=== PATIENT | male | born 1935 | race Caucasian/White ===

== ENCOUNTER 2017-10-24 17:29 | Observation (INO) | payer MEDICARE, SELFPAY ==
[2017-10-24] VITALS (10 sets, daily range): BP systolic 154–195; BP diastolic 72–99; PULSE 76–91; RESP 14–24; TEMP 36.7; O2SAT 94–99; BMI 32.2; BMI 32.4
--- NOTE | 2017-10-24 18:07 | EKG12_ITS ---
Test Reason : CP Blood Pressure : / mmHG Vent. Rate : 092 BPM Atrial Rate : 092 BPM P-R Int : 176 ms QRS Dur : 122 ms QT Int : 344 ms P-R-T Axes : 088 070 034 degrees QTc Int : 425 ms Normal sinus rhythm Right bundle branch block Abnormal ECG Confirmed by MATTY SHERMAN, GELA ([id number]), video tape editor CHEO CAMPOS ([id number]) on 10/29/2017 1:56:37 PM Referred By: DANGELO/KANDACE Confirmed By:GELA STARR MD
--- NOTE | 2017-10-24 18:07 | RAD_ITS ---
STUDY: X-RAY CHEST REASON FOR EXAM: Male, 82 years old. Chest pain TECHNIQUE: AP portable COMPARISON: None. FINDINGS: Lungs are hyperinflated and there is minor interstitial thickening at the lung bases. Lungs are otherwise clear.. There is no demonstrated pleural abnormality. Normal size heart. Normal mediastinum and juan manuel. Normal visualized pulmonary arteries. Normal visualized aortic arch and descending thoracic aorta. Dorsal spine demonstrates spondylosis. Normal visualized ribs, clavicles, and shoulders. There is no demonstrated abnormality of the visualized soft tissue structures of the upper abdomen. RAD/Chest 1 View (Portable) IMPRESSION: COPD. No acute disease Electronically Signed: Gil Brooks MD at 18:46 EDT , Service support ,
[2017-10-24] MEDS: Aspirin 81 MG TAB.CHEW 324 MG PO (18:19)
[2017-10-24 18:32] LABS: Anion Gap 5 (5-15); BUN 16 mg/dL (7-18); BUN/Creat Ratio 20.8 RATIO (10-20); Calcium,Total 9.5 mg/dL (8.5-10.1); Chloride 104 mmol/L (98-107); Creatinine, Serum 0.77 mg/dL (0.70-1.30); EST Glomerular Filtration Rate 103 mL/min (>60); Est Glom Filt Rate - Afr Amer 124 mL/min (>60); Estimated Creatinine Clearance 54.17 ml/min; Glucose 101 mg/dL (74-106); Potassium 3.9 mmol/L (3.5-5.1); Sodium Level 141 mmol/L (136-145)
[2017-10-24 18:39] LABS: Absolute Lymphocyte Count 2.45 X10^3/ul (0.83-4.51); Absolute Neutrophil Count 4.7 X10^3/uL (2.0-7.7); Basophil# 0.02 X10^3/uL; Basophil% 0.2 % (0-1); Eosinophil# 0.19 X10^3/uL; Eosinophils% 2.3 % (0-5); Hematocrit 41.3 % (40-54); Hemoglobin 13.6 g/dl (13.0-16.5); Lymphocyte # 2.45 X10^3/ul (4.0); Lymphocyte % 29.5 % (19-41); Mean Corp Hgb Conc 32.9 g/gl (32-36); Mean Corpuscular Hgb 30.8 pg (27.0-32.0); Mean Corpuscular Volume 93.4 fL (80-94); Mean Platelet Vol. 9.4 fl (6.2-12.0); Monocyte# 0.98 X10^3/uL; Monocyte% 11.8 % (0-10); Neutrophil # 4.66 X10^3/uL (2.7-7.7); Neutrophil % 56.1 % (47-70); Platelet Count 299 K/mm3 (150-450); RBC Distribution Width CV 13.1 % (11.6-14.6); RBC Distribution Width SD 44.7 fl (35.1-43.9); Red Blood Count 4.42 M/mm3 (4.6-6.2); White Blood Count 8.3 K/mm3 (4.4-11.0)
[2017-10-24 18:42] LABS: POSITIVE COUNT NO; POSITIVE DIFFERENTIAL NO; POSITIVE MORPHOLOGY NO
--- NOTE | 2017-10-24 19:38 | ED.DCSUM_ITS ---
- ER Visit Summary Date of Service: 10/24/17 Chief Complaint: Chest pain History of Present Illness: The patient is a 82 M history of COPD on O2 with reflux and hypertension. He is prediabetic. Patient has no prior cardiac history. He does not believe he is ever had a stress test or heart cath. Today was seen his primary care physician's office Dr. Jaime Quintero call me thought the patient was having atypical chest pain and did not feel comfortable with him being discharged from his office. Patient is never had a DVT or PE. He has had no recent travel, surgery or mobilization. He has had no hemoptysis. No leg swelling. The pain is not pleuritic. Physical Examination: Well-appearing older male. Vital signs are stable. Pulse ox is 94% on 2 L which is chronic O2. H EENT exam unremarkable. Neck nontender no JVD. Heart regular rate and rhythm. Lungs coarse but no rales, rhonchi or wheezing. Abdomen soft nontender. Remedies moves all 4. Calves nontender no edema no cords. Neurologically is awake and alert with no focal deficits. Moving all 4 extremities. Equal symmetrical radial pulses. Test Results: CBC normal. BMP normal. Troponin is slightly above normal at 0.048. EKG is a sinus rhythm rate of 92 with a right bundle branch block. I have an EKG from the office is not significantly changed. I do not not have a more recent EKG from the hospital at this time. Chest x-ray shows chronic changes consistent with COPD read both by myself the radiologist but no acute process. Normal cardiac silhouette and mediastinum. Emergency Department Course and Treatment: Repeat exam patient is doing well at night 37. I discussed with both he and his all his test results. He is comfortable with admission for further evaluation and workup of atypical chest pain. Treatment Plan: I have the hospitalist Dr. Hill on page for admission. Disposition: Admission Impression: Acute atypical chest pain Abnormal troponin History of COPD This note was generated with [employer] dictation software. It may contain incorrect words, spelling, and punctuation that were not noted in review of the chart prior to signing ED Disposition - Plan for ED Patient: Chief Complaint: Chest Pain Referrals: Jaime Quintero MD [Primary Care Provider] -
--- NOTE | 2017-10-24 19:48 | HP.PCM_ITS ---
Problem List (1) COPD (chronic obstructive pulmonary disease) Status: Chronic Qualifiers: COPD type: unspecified COPD Qualified Code(s): J44.9 - Chronic obstructive pulmonary disease, unspecified (2) Chronic respiratory failure with hypoxia, on home oxygen therapy Status: Chronic (3) Pre-diabetes Status: Chronic (4) HTN (hypertension) Status: Chronic Qualifiers: Hypertension type: essential hypertension Qualified Code(s): I10 - Essential (primary) hypertension (5) Obesity (BMI 30.0-34.9) Status: Chronic (6) Chest pain Status: Acute Qualifiers: Chest pain type: unspecified Qualified Code(s): R07.9 - Chest pain, unspecified History of Present Illness Date of Admission: 10/24/17 Chief Complaint: Chest pain The patient is a 82 y/o M w/ PMHx: Chronic COPD w/ Chronic Hypoxic Respiratory Failure, Pre-Diabetes mellitus type II, Obesity, HTN who presents to the [facility] ED on 10/24/17 with onset over the last 24 hours atypical chest pain, noted to have initially occurred while riding ~1 mile to obtain his mail w/ diffuse discomfort across his chest w/ radiation into his back and BL jaw as well as L shoulder which resolved after ~20 minutes following intake he notes of anti- acid medications. He noted it did recurrent on day of ED presentation and again resolved w/ his PCP evaluation and referral to the ED for evaluation. In the ED work-up included T 98, heart rate 80, BP 156/75, respiratory rate 14, 99% on 2 L nasal cannula, unremarkable CBC, BMP unremarkable, troponin 0 0.048, EKG with right bundle branch block with no acute evidence of ischemia, chest x-ray with chronic COPD changes. In the ED patient will start aspirin therapy. Past Medical History Past Medical History (Chronic Problems): Chronic Problems COPD (chronic obstructive pulmonary disease) (Chronic) Chronic respiratory failure with hypoxia, on home oxygen therapy (Chronic) Pre-diabetes (Chronic) HTN (hypertension) (Chronic) Obesity (BMI 30.0-34.9) (Chronic) Allergies No Known Allergies Allergy (Verified 10/24/17 17:31) Home Medications: Ambulatory Orders Medication Instructions Recorded Albuterol IH (ProAir) [Proair Hfa] 1 - 2 puff INHALATION PRN PRN 10/24/17 Amlodipine [Norvasc] 5 mg PO DAILY 10/24/17 Cholecalciferol (Vitamin D3) 5,000 unit PO DAILY 10/24/17 [Vitamin D3] Curcumin 1 tab PO DAILY 10/24/17 Mometasone/Formoterol [Dulera 200 2 puff INHALATION BID 10/24/17 Mcg/5 Mcg Inhaler] [place]-3 Fatty Acids/Fish Oil [Fish 1 each PO DAILY 10/24/17 Oil 1,000 mg Capsule] Pantoprazole Sodium [Protonix] 40 mg PO DAILY 10/24/17 Tiotropium [place] [Spiriva] 1 puff IH DAILY 10/24/17 Ubidecarenone [Co Q-10] 10 mg PO DAILY 10/24/17 Surgical History: - - Tonsillectomy, cholecystectomy, bilateral inguinal hernia repair. Psychiatric History: No pertinent psych hx Lives: Spouse/ Significant Other Smoking Status: Former smoker - Quit tobacco usage in January 2001 with prior to this 40 year history of 2-3 pack per day tobacco usage cigarette. Tobacco Use: Non-smoker Alcohol: Occasional Drugs: None - *Family History Maternal History Items: - - Patient notes a maternal family history of stroke in her 80s. Paternal History Items: - - Patient notes a paternal family history of Parkinson's disease with dementia. Sibling History Items: - - Patient notes a sister with Parkinson's disease. Review of Systems Constitutional: Reports: Malaise, Weakness, Fatigue. Denies: Chills, Fever, Weight Change HEENT: Denies: Head Aches, Sinus Congestion, Sinus Drainage Cardiovascular: Reports: Chest Pain, Chest Tightness. Denies: Edema, Heaviness , Light Headedness, Orthopnea, Palpitations, Syncope Respiratory: Reports: Shortness of Breath, Shortness of breath upon exertion. Denies: Cough, Shortness of breath at rest, Sputum production Gastrointestinal: Denies: Abdominal Pain, Nausea, Vomiting Genitourinary: Denies: Dysuria Musculoskeletal: Reports: Shoulder Pain. Denies: Joint Pain, Joint Tenderness Skin: Denies: Rash, Wounds Neurological: Denies: Numbness, Tingling, Focal weakness Psychiatric: Denies: Anxiety, Depression, Homicidal Ideations, Suicidal Ideations Hematologic/ Lymphatic: Denies: Easy Bruising, Easy Bleeding VTE Information - Inpt Only VTE Present on Admission: No VTE Mechan Device Prophylaxis: SCD's VTE Pharm Prophylaxis ordered?: Yes Patient Problems: Active and Suspected Problems Chest pain (Acute) Subjective: Seated upright in the ED bed, NAD, denies any current chest pain. Objective: Physical Examination: General: awake, alert, oriented x 3 and cooperative, seated upright in the ED bed in no apparent distress. Skin: normal color, turgor, no icterus, cyanosis. HEENT: AT/NC, EOMI, PERRLA, mildly dry MM, no carotid bruits or JVD noted. Lungs: Diffusely diminished BS, > bases, mild effort, on his chronic O2, no rales, ronchi or wheezing. Heart: Regular rate and rhythm; no gallop, rub audible. Abdomen: soft, obese, NTTP, ND, normal BS, no HSM. Extremities: no cyanosis, clubbing, BL LE ankle edema. Neurological: patient awake, alert, oriented x 3; cognitive function intact; pupils equally reactive to light and accomodation; cranial nerves II-XII grossly normal, moving all 4 extremities, no focal deficits, strength moderately globally decreased. Psychiatric: affect appears normal, no acute evidence of depressive or anxiety feelings. - Physical Exam Vital Signs Temp Pulse Resp BP Pulse Ox 98.0 F 87 14 195/99 H 97 10/24/17 17:30 10/24/17 17:56 10/24/17 17:56 10/24/17 17:56 10/24/17 18:14 Oxygen Flow Rate (L/min) 2 Oxygen Delivery Method Nasal Cannula Weight: 205 lb 11.06 oz Body Mass Index (BMI) 32.2 Laboratory Tests Past 24 Hrs 10/24/17 10/24/17 17:50 17:50 WBC 8.3 RBC 4.42 L Hgb 13.6 Hct 41.3 MCV 93.4 MCH 30.8 MCHC 32.9 RDW 13.1 RDW Differential 44.7 H Plt Count 299 MPV 9.4 Immature Gran % (Auto) 0.100 Neut % (Auto) 56.1 Lymph % (Auto) 29.5 Summers % (Auto) 11.8 H Eos % (Auto) 2.3 Baso % (Auto) 0.2 Absolute Neuts (auto) 4.7 Absolute Lymphs (auto) 2.45 Total Counted Not Reportable Sodium 141 Potassium 3.9 Chloride 104 Carbon Dioxide 32.0 Anion Gap 5 BUN 16 Creatinine 0.77 Estim Creat Clear Calc 54.17 Est GFR (MDRD) Af Amer 124 Est GFR (MDRD) Non-Af 103 BUN/Creatinine Ratio 20.8 H Glucose 101 Calcium 9.5 Troponin I 0.048 H Assessment/Plan Active and Suspected Problems Chest pain (Acute) The patient is a 82 y/o M w/ PMHx: Chronic COPD w/ Chronic Hypoxic Respiratory Failure, Pre-Diabetes mellitus type II, Obesity, HTN who presents to the [facility] ED on 10/24/17 with onset over the last 24 hours atypical chest pain, noted to have initially occurred while riding ~1 mile to obtain his mail w/ diffuse discomfort across his chest w/ radiation into his back and BL jaw as well as L shoulder which resolved after ~20 minutes following intake he notes of anti- acid medications. He noted it did recurrent on day of ED presentation and again resolved w/ his PCP evaluation and referral to the ED for evaluation. (1) Chest Pain w/ Indeterminate Troponin: In the ED work-up included T 98, heart rate 80, BP 156/75, respiratory rate 14, 99% on 2 L nasal cannula, unremarkable CBC, BMP unremarkable, troponin 0.048, EKG with right bundle branch block with no acute evidence of ischemia, chest x-ray with chronic COPD changes. Will admit to PCU, place on a monitored bed to assure no acute myocardial infarction with serial cardiac enzymes and EKGs. If enzymes remain near normal, low then would plan to obtain AM dobutamine nuclear stress testing , but if increase further would plan cardiology consultation and administer therapeutic lovenox if appropriate. ASA, NG, morphine. FLP in AM. Mag pending. (2) Chronic COPD: Will maintain on home oxygen supplementation, continue ATC duonebs, PRN albuterol, HOB, IS parameters. (3) Diabetes mellitus type II: Not on regimen, allow until NPO ADA diet, accu checks w/ ISS. (4) GERD: Continue home PPI. (5) Hypertension: Continue home regimen including Norvasc, PRN hydralazine. (6) Obesity: Weight loss and lifestyle changes encouraged. (7) DVT Prophylaxis: SCDs, lovenox. Code Visit OBSV E&M: 68728 Initial observation care L3
--- NOTE | 2017-10-24 20:51 | EKG12_ITS ---
Test Reason : ADM EKG Blood Pressure : / mmHG Vent. Rate : 078 BPM Atrial Rate : 078 BPM P-R Int : 184 ms QRS Dur : 122 ms QT Int : 380 ms P-R-T Axes : 084 068 020 degrees QTc Int : 433 ms Normal sinus rhythm Right bundle branch block Septal infarct , age undetermined T wave abnormality, consider lateral ischemia Abnormal ECG When compared with ECG of 24-OCT-2017 17:36, MANUAL COMPARISON REQUIRED, DATA IS UNCONFIRMED Confirmed by MATTY SHERMAN, GELA ([id number]), editor publications CHEO CAMPOS ([id number]) on 10/29/2017 2:14:33 PM Referred By: KATHERINE Confirmed By:GELA STARR MD
[2017-10-24] MEDS: Ipratropium/Albuterol Sulfate 3 ML AMPUL.NEB INHALATION (21:40)
[2017-10-24] MEDS: Albuterol 2.5 MG/3 ML VIAL.NEB. INHALATION (21:48)
[2017-10-24 21:49] LABS: Magnesium 1.7 mg/dL (1.6-2.6)
[2017-10-24 22:46] LABS: Bedside Glucose 148 mg/dL (70-110)
[2017-10-25] VITALS (14 sets, daily range): BP systolic 148–182; BP diastolic 79–93; PULSE 63–94; RESP 16–20; TEMP 36.6–37; O2SAT 96–98
[2017-10-25] MEDS: 0.9% NaCl Peripheral Flush Adult/Peds IV (03:25)
[2017-10-25] MEDS: Albuterol 2.5 MG/3 ML VIAL.NEB. INHALATION (05:13)
--- NOTE | 2017-10-25 05:55 | EKG12_ITS ---
Test Reason : AM EKG Blood Pressure : / mmHG Vent. Rate : 072 BPM Atrial Rate : 072 BPM P-R Int : 194 ms QRS Dur : 138 ms QT Int : 410 ms P-R-T Axes : 073 063 011 degrees QTc Int : 448 ms Normal sinus rhythm Right bundle branch block T wave abnormality, consider lateral ischemia Abnormal ECG When compared with ECG of 24-OCT-2017 21:36, MANUAL COMPARISON REQUIRED, DATA IS UNCONFIRMED Confirmed by MATTY SHERMAN, GELA ([id number]), industrial editor CHEO CAMPOS ([id number]) on 10/29/2017 2:16:01 PM Referred By: KATHERINE Confirmed By:GELA STARR MD
[2017-10-25] MEDS: Aspirin E.C. 81 MG Tablet PO (05:56)
[2017-10-25 06:11] LABS: Bedside Glucose 110 mg/dL (70-110)
[2017-10-25 06:56] LABS: Hematocrit 40.1 % (40-54); Mean Corp Hgb Conc 32.4 g/gl (32-36); Mean Corpuscular Hgb 30.9 pg (27.0-32.0); Mean Corpuscular Volume 95.2 fL (80-94); Mean Platelet Vol. 9.5 fl (6.2-12.0); Platelet Count 290 K/mm3 (150-450); RBC Distribution Width CV 13.3 % (11.6-14.6); RBC Distribution Width SD 44.9 fl (35.1-43.9); Red Blood Count 4.21 M/mm3 (4.6-6.2); White Blood Count 7.8 K/mm3 (4.4-11.0)
[2017-10-25 06:59] LABS: Scan Indicated on CBC? Y/N NO
[2017-10-25 07:02] LABS: International Normalized Ratio 1.1; Partial Thromboplast Time 33.4 Seconds (24.1-36.2)
[2017-10-25 07:17] LABS: Anion Gap 7 (5-15); BUN 14 mg/dL (7-18); BUN/Creat Ratio 18.9 RATIO (10-20); Calcium,Total 9.1 mg/dL (8.5-10.1); Chloride 104 mmol/L (98-107); Cholesterol 191 mg/dL (200); Creatinine, Serum 0.74 mg/dL (0.70-1.30); EST Glomerular Filtration Rate 107 mL/min (>60); Est Glom Filt Rate - Afr Amer 130 mL/min (>60); Estimated Creatinine Clearance 52.28 ml/min; Glucose 100 mg/dL (74-106); High Density Lipoprotein 68 mg/dL; Potassium 3.6 mmol/L (3.5-5.1); Sodium Level 142 mmol/L (136-145); Triglycerides 86 mg/dL; Very Low Density Lipoprotein 17 mg/dL (5-40)
[2017-10-25] MEDS: Pantoprazole Sodium 40 MG Tablet PO (10:29)
[2017-10-25] MEDS: amLODIPine 5 MG Tablet PO ×2 (10:29→13:47)
[2017-10-25] MEDS: Ipratropium/Albuterol Sulfate 3 ML AMPUL.NEB INHALATION (10:33)
[2017-10-25 11:50] LABS: Bedside Glucose 128 mg/dL (70-110)
--- NOTE | 2017-10-25 12:34 | CHAPLAIN ---
Type of Pastoral Visit _x__ Initial Visit ___ Follow-up Visit ___ On-call Visit ___ General Patient Visit ___ Spiritual Assessment ___ Family Conference ___ Bereavement ___ Rapid Response ___ Code Blue ___ Other (describe below) Pastoral Care Referral From _x__ Patient ___ Family ___ Nurse ___ Physician ___ Corporate Librarian ___ Motion Study Engineer ___ Other (describe below) Sacrament/Intervention _x__ Active listening ___ Anointing ___ Moravian ___ Bereavement ___ Communion ___ Laney exploration ___ ___ Life review _x__ Prayer ___ Reconciliation ___ Sacrament of Sick _x__ Supportive presence ___ Wedding ___ Other (describe below) Pastoral Comments patient is waiting for report of his tests; pt says that his concern is what they might have found and what comes next; pt goal is to get answers
--- NOTE | 2017-10-25 13:25 | PCM.DC ---
- Discharge Diagnoses Current Active Problems: Current Active and Chronic Problems COPD (chronic obstructive pulmonary disease) (Chronic) Chronic respiratory failure with hypoxia, on home oxygen therapy (Chronic) Pre-diabetes (Chronic) HTN (hypertension) (Chronic) Obesity (BMI 30.0-34.9) (Chronic) Chest pain (Acute) You will use the following diet at home:: Cardiac Discharge Activity: Return to Normal Activity Call your doctor if you observe: Shortness of breath, Dizziness, Fainting spells, Chest pain Allergies/Adverse Reactions: Allergies mussels Adverse Reaction (Verified 10/24/17 20:56) Vomiting Medications to take at Discharge Albuterol IH (ProAir) [Proair Hfa] 1 - 2 puff INHALATION PRN PRN 10/24/17 Cholecalciferol (Vitamin D3) [Vitamin D3] 5,000 unit PO DAILY 10/24/17 Curcumin 1 tab PO DAILY 10/24/17 Mometasone/Formoterol [Dulera 200 Mcg/5 Mcg Inhaler] 2 puff INHALATION BID 10/24/17 [place]-3 Fatty Acids/Fish Oil [Fish Oil 1,000 mg Capsule] 1 each PO DAILY 10/24/17 Pantoprazole Sodium [Protonix] 40 mg PO DAILY 10/24/17 Tiotropium [place] [Spiriva] 1 puff IH DAILY 10/24/17 Ubidecarenone [Co Q-10] 10 mg PO DAILY 10/24/17 Amlodipine [Norvasc] 10 mg PO DAILY #30 tab 10/25/17 The following prescriptions were given: Amlodipine [Norvasc] 10 mg PO DAILY #30 tab Primary Care Physician: Jaime Quintero MD [Primary Care Provider] - Please follow up with your Primary Care Physician in: 1 Week Proposed Discharge Date: 10/25/17
--- NOTE | 2017-10-25 13:26 | PCM.DC.SUM ---
<Zenaida Platt - Last Filed: 10/25/17 13:37> Discharge Date and Diagnosis Date of Admission: 10/24/17 Date of Discharge: 10/25/17 - Primary Discharge Diagnosis Active and Suspected Problems 1. Chest pain- ACS ruled out. - Secondary Discharge Diagnosis Chronic Problems COPD (chronic obstructive pulmonary disease) (Chronic) Chronic respiratory failure with hypoxia, on home oxygen therapy (Chronic) Pre-diabetes (Chronic) HTN (hypertension) (Chronic) Obesity (BMI 30.0-34.9) (Chronic) Hospital Course and Treatment Imaging Results: Diagnostic Data Chest X-Ray 10/24/17 18:07 IMPRESSION: COPD. No acute disease Electronically Signed: Gil Brooks MD at 18:46 EDT , Service support , Operations: None Procedures: Stress test Summary of Care Provided: The patient is a 82 year old M admitted 10/24/17 due to chest pain. He has a past medical history of chronic COPD with chronic hypoxic respiratory failure, prediabetes mellitus type II, obesity, hypertension. EKG on admission showed right bundle branch block, no evidence of ischemia. Chest x-ray showed chronic COPD changes. Troponin negative. Patient underwent nuclear stress test which was negative for ischemia. Fasting lipid panel within normal limits. Patient's blood pressure elevated during admission. Amlodipine regimen increased to 10 mg daily. Patient will need further outpatient monitoring and adjustment as necessary. Patient has denied further episodes of chest pain. Follow-up with primary care physician in 1 week. Patient seen and examined prior to discharge. Heart rate regular rate and rhythm. Lungs clear. Abdomen soft, nontender. Neuro grossly intact. Vital signs stable. Patient stable for discharge home with the recommendations as noted above. This patient was seen by LARISA Baldwin under the supervision of Dr. Landin. Discharge Diet: Low fat/ Low Cholesterol Discharge Activity: Return to Normal Activity Call your doctor if you observe: Shortness of breath, Dizziness, Fainting spells, Chest pain Home Medications: Medications to take at Discharge Albuterol IH (ProAir) [Proair Hfa] 1 - 2 puff INHALATION PRN PRN 10/24/17 Cholecalciferol (Vitamin D3) [Vitamin D3] 5,000 unit PO DAILY 10/24/17 Curcumin 1 tab PO DAILY 10/24/17 Mometasone/Formoterol [Dulera 200 Mcg/5 Mcg Inhaler] 2 puff INHALATION BID 10/24/17 [place]-3 Fatty Acids/Fish Oil [Fish Oil 1,000 mg Capsule] 1 each PO DAILY 10/24/17 Pantoprazole Sodium [Protonix] 40 mg PO DAILY 10/24/17 Tiotropium [place] [Spiriva] 1 puff IH DAILY 10/24/17 Ubidecarenone [Co Q-10] 10 mg PO DAILY 10/24/17 Amlodipine [Norvasc] 10 mg PO DAILY #30 tab 10/25/17 Following Prescrptions Were Given to Patient: Amlodipine [Norvasc] 10 mg PO DAILY #30 tab Primary Care Physician: Jaime Quintero MD [Primary Care Provider] - Please follow up with your Primary Care Physician in: 1 Week Disposition: Home Minutes spent on discharge:: 35 Patient Condition:: Stable Medical Necessity - Tobacco Use Smoking Status: Former smoker - Quit tobacco usage in January 2001 with prior to this 40 year history of 2-3 pack per day tobacco usage cigarette. Tobacco Use: Non-smoker Meaningful Use Info Meaningful Use Diagnoses (Choose all that apply): None applicable <Abhishek Landin - Last Filed: 10/25/17 14:44> Discharge Date and Diagnosis - Secondary Discharge Diagnosis Chronic Problems COPD (chronic obstructive pulmonary disease) (Chronic) Chronic respiratory failure with hypoxia, on home oxygen therapy (Chronic) Pre-diabetes (Chronic) HTN (hypertension) (Chronic) Obesity (BMI 30.0-34.9) (Chronic) Hospital Course and Treatment Summary of Care Provided: This patient was seen in conjunction with Zenaida MATIAS. I have independently interviewed and examined the patient and reviewed pertinent history, examination findings, laboratory and plan of management. I have reviewed the note and agree with the documented findings with the few additional points. In brief, patient is admitted for chest pain with history of COPD and chronic hypoxic respiratory failure comorbidities as mentioned above. EKG did show evidence of ischemia with chronic right bundle branch block. Patient had nuclear stress test was negative for ischemia. I have discussed my assessment with Zenaida MATIAS and orders have been reviewed. Code Visit OBSV E&M: 99780 Observation care discharge
--- NOTE | 2017-10-25 13:31 | STRESSREP_ITS ---
Stress Test Report Date: 10/25/2017 Procedure: Pharmacologic stress nuclear imaging study Indications: Chest pain Consent: Per the patient Procedure: The patient underwent pharmacologic (Regadenoson) evaluation with a peak heart rate of 104 beats per minute (74 predicted maximal heart rate) and a peak blood pressure of 162/80 mmHg. The baseline ECG demonstrated sinus rhythm; right bundle branch block pattern; ST and T-wave abnormality. The peak pharmacologic ECG demonstrated no obvious ECG changes. There were no cardiac dysrhythmias pretest, during pharmacologic infusion, or recovery. There was no complaint of chest discomfort during pharmacologic infusion or recovery. The examination was discontinued secondary to completion of protocol. Impression: 1. Pharmacologic (Regadenoson) evaluation 2. Peak pharmacologic ECG with no obvious ECG changes. 3. Were no cardiac dysrhythmias pretest, during pharmacologic infusion, or recovery 4. Nuclear images pending Myocardial perfusion imaging study: Technique: The patient was injected with 10.5 millicuries of technetium 99m Cardiolite and subsequently rest SPECT Cardiolite nuclear imaging was obtained in the horizontal long, vertical long, and short axis views. The patient underwent pharmacologic (Regadenoson) evaluation with a peak heart rate of 104 beats per minute (74 % percent predicted maximal heart rate) and a peak blood pressure of 162/80 mmHg. The patient was injected with 44.2 millicuries of technetium 99m Cardiolite and subsequently stress SPECT Cardiolite nuclear imaging was obtained in the horizontal long, vertical long, and short axis views. A gated Cardiolite study at peak stress was obtained. Interpretation: Rest and stress SPECT Cardiolite nuclear imaging status post realignment, normalization, and attenuation correction demonstrate appearance of extracardiac /gastrointestinal tracer uptake near the inferior segments, otherwise, there appears to be relative uniform tracer uptake and myocardial perfusion appearing within normal limits. There is end systolic thickening and brightening. The gated Cardiolite study demonstrates myocardial thickening and inward wall motion. The reported LVEF is 66 %. Impression: 1. Rest and stress SPECT Cardiolite nuclear imaging demonstrate the appearance of extracardiac/gastrointestinal tracer uptake near the inferior segments, otherwise, there appears to be relative uniform tracer uptake and myocardial perfusion appearing within normal limits. There are no myocardial perfusion changes consider diagnostic for associated stress-induced myocardial ischemia or previous myocardial injury/infarction. 2. The gated Cardiolite study reports an LVEF of 66 %. This note was generated with Dragon dictation software. It may contain incorrect words, spelling, and punctuation that were not noted in checking the note before signing.
--- NOTE | 2017-10-25 13:31 | DS.PCM_ITS ---
<Zenaida Platt - Last Filed: 10/25/17 13:37> Discharge Date and Diagnosis Date of Admission: 10/24/17 Date of Discharge: 10/25/17 - Primary Discharge Diagnosis Active and Suspected Problems 1. Chest pain- ACS ruled out. - Secondary Discharge Diagnosis Chronic Problems COPD (chronic obstructive pulmonary disease) (Chronic) Chronic respiratory failure with hypoxia, on home oxygen therapy (Chronic) Pre-diabetes (Chronic) HTN (hypertension) (Chronic) Obesity (BMI 30.0-34.9) (Chronic) Hospital Course and Treatment Imaging Results: Diagnostic Data Chest X-Ray 10/24/17 18:07 IMPRESSION: COPD. No acute disease Electronically Signed: Gil Brooks MD at 18:46 EDT , Service support , Operations: None Procedures: Stress test Summary of Care Provided: The patient is a 82 year old M admitted 10/24/17 due to chest pain. He has a past medical history of chronic COPD with chronic hypoxic respiratory failure, prediabetes mellitus type II, obesity, hypertension. EKG on admission showed right bundle branch block, no evidence of ischemia. Chest x-ray showed chronic COPD changes. Troponin negative. Patient underwent nuclear stress test which was negative for ischemia. Fasting lipid panel within normal limits. Patient' s blood pressure elevated during admission. Amlodipine regimen increased to 10 mg daily. Patient will need further outpatient monitoring and adjustment as necessary. Patient has denied further episodes of chest pain. Follow-up with primary care physician in 1 week. Patient seen and examined prior to discharge. Heart rate regular rate and rhythm. Lungs clear. Abdomen soft, nontender. Neuro grossly intact. Vital signs stable. Patient stable for discharge home with the recommendations as noted above. This patient was seen by LARISA Baldwin under the supervision of Dr. Landin. Discharge Diet: Low fat/ Low Cholesterol Discharge Activity: Return to Normal Activity Call your doctor if you observe: Shortness of breath, Dizziness, Fainting spells , Chest pain Home Medications: Medications to take at Discharge Albuterol IH (ProAir) [Proair Hfa] 1 - 2 puff INHALATION PRN PRN 10/24/17 Cholecalciferol (Vitamin D3) [Vitamin D3] 5,000 unit PO DAILY 10/24/17 Curcumin 1 tab PO DAILY 10/24/17 Mometasone/Formoterol [Dulera 200 Mcg/5 Mcg Inhaler] 2 puff INHALATION BID 10/24 Roland-3 Fatty Acids/Fish Oil [Fish Oil 1,000 mg Capsule] 1 each PO DAILY Pantoprazole Sodium [Protonix] 40 mg PO DAILY 10/24/17 Tiotropium [place] [Spiriva] 1 puff IH DAILY 10/24/17 Ubidecarenone [Co Q-10] 10 mg PO DAILY 10/24/17 Amlodipine [Norvasc] 10 mg PO DAILY #30 tab 10/25/17 Following Prescrptions Were Given to Patient: Amlodipine [Norvasc] 10 mg PO DAILY #30 tab Primary Care Physician: Jaime Quintero MD [Primary Care Provider] - Please follow up with your Primary Care Physician in: 1 Week Disposition: Home Minutes spent on discharge:: 35 Patient Condition:: Stable Medical Necessity - Tobacco Use Smoking Status: Former smoker - Quit tobacco usage in January 2001 with prior to this 40 year history of 2-3 pack per day tobacco usage cigarette. Tobacco Use: Non-smoker Meaningful Use Info Meaningful Use Diagnoses (Choose all that apply): None applicable <Abhishek Landin - Last Filed: 10/25/17 14:44> Discharge Date and Diagnosis - Secondary Discharge Diagnosis Chronic Problems COPD (chronic obstructive pulmonary disease) (Chronic) Chronic respiratory failure with hypoxia, on home oxygen therapy (Chronic) Pre-diabetes (Chronic) HTN (hypertension) (Chronic) Obesity (BMI 30.0-34.9) (Chronic) Hospital Course and Treatment Summary of Care Provided: This patient was seen in conjunction with Zenaida MATIAS. I have independently interviewed and examined the patient and reviewed pertinent history, examination findings, laboratory and plan of management. I have reviewed the note and agree with the documented findings with the few additional points. In brief, patient is admitted for chest pain with history of COPD and chronic hypoxic respiratory failure comorbidities as mentioned above. EKG did show evidence of ischemia with chronic right bundle branch block. Patient had nuclear stress test was negative for ischemia. I have discussed my assessment with Zenaida MATIAS and orders have been reviewed. Code Visit OBSV E&M: 04454 Observation care discharge
== END 2017-10-25 13:25 | disposition home or self-care (01) ==
LOC: ED 18:24 → PCU 20:04
PROVIDERS: Admitting Provider Family Medicine; Emergency Provider Emergency Medicine; Family Provider Family Medicine; PCP Family Medicine; Visit Provider Internal Medicine
DX: R07.89 Other chest pain (principal); J44.9 Chronic obstructive pulmonary disease, unspecified; K21.9 Gastro-esophageal reflux disease without esophagitis; I10 Essential (primary) hypertension; J96.11 Chronic respiratory failure with hypoxia; E66.9 Obesity, unspecified; R73.03 Prediabetes; Z99.81 Dependence on supplemental oxygen; Z68.32 Body mass index [BMI] 32.0-32.9, adult; Z79.899 Other long term (current) drug therapy; Z71.3 Dietary counseling and surveillance; Z87.891 Personal history of nicotine dependence
CPT/HCPCS: 36415; 71045; 78452; 80048; 80061; 82962; 83735; 84484; 85025; 85027; 85610; 85730; 93005; 93017; 94640; 99218; 99285; A9500; A4216; G0378; J2785

== ENCOUNTER → 2017-11-21 13:51 | Outpatient (CLI) | payer MEDICARE, SELFPAY ==
--- NOTE | 2017-11-21 13:51 | DT_ITS ---
This patient was seen during an EMR downtime November 18, 2017 - November 25, 2017. This patient may have a combination of paper and electronic documentation or all paper documentation. All documentation is viewable within the e-chart portion of [facility] for each patient visit.
--- NOTE | 2017-11-21 14:15 | RAD_ITS ---
STUDY: X-RAY - ABDOMEN/PELVIS REASON FOR EXAM: Male, 82 years old. Abdominal pain, constipation TECHNIQUE: Two AP supine views of the abdomen and pelvis. COMPARISON: None. FINDINGS: Normal visualized lung bases. There is an abundance of fecal material throughout the colon. There is no demonstrated free abdominal air. The visualized liver, spleen and kidneys are grossly normal in size and morphology. Cholecystectomy clips are seen in the right upper quadrant of the abdomen. Normal visualized osseous structures. Phleboliths are seen within the pelvis. Surgical clips project over the low pelvis bilaterally. RAD/Abd Inc Decub and/or Erect IMPRESSION: Normal x-ray examination of the abdomen and pelvis. Please note that this study was performed November 21, 2017, but only now placed in my queue for interpretation, explaining the delay in reporting. Electronically Signed: Ruslan Platt DO at 11:19 EDT Tel , Service support ,
== END ==
PROVIDERS: Family Provider Family Medicine; PCP Family Medicine; Visit Provider Family Medicine
DX: R10.9 Unspecified abdominal pain (principal)
CPT/HCPCS: 74019

== ENCOUNTER → 2018-01-30 10:22 | Outpatient (CLI) | payer MEDICARE, SELFPAY ==
[2018-01-30 12:25] LABS: Anion Gap 9 (5-15); BUN 13 mg/dL (7-18); BUN/Creat Ratio 16.5 RATIO (10-20); Calcium,Total 9.3 mg/dL (8.5-10.1); Chloride 103 mmol/L (98-107); Cholesterol 208 mg/dL (200); Creatinine, Serum 0.79 mg/dL (0.70-1.30); EST Glomerular Filtration Rate 100 mL/min (>60); Est Glom Filt Rate - Afr Amer 121 mL/min (>60); Glucose 129 mg/dL (74-106); High Density Lipoprotein 88 mg/dL; PSA,Total- Diagnostic 8.51 ng/mL (0.0-4.0); Potassium 3.8 mmol/L (3.5-5.1); Sodium Level 140 mmol/L (136-145); Triglycerides 81 mg/dL; Very Low Density Lipoprotein 16 mg/dL (5-40)
[2018-01-30 12:26] LABS: Hemoglobin A1c 5.6 % (4.2-6.3)
== END ==
PROVIDERS: Family Provider Family Medicine; PCP Family Medicine; Visit Provider Family Medicine
DX: I10 Essential (primary) hypertension (principal); R73.01 Impaired fasting glucose; E78.00 Pure hypercholesterolemia, unspecified; R97.20 Elevated prostate specific antigen [PSA]
CPT/HCPCS: 36415; 80048; 80061; 83036; 84153

== ENCOUNTER → 2018-03-12 12:17 | Outpatient (CLI) | payer MEDICARE, SELFPAY ==
[2018-03-12 14:35] LABS: Anion Gap 6 (5-15); BUN 16 mg/dL (7-18); BUN/Creat Ratio 19.4 RATIO (10-20); Calcium,Total 9.3 mg/dL (8.5-10.1); Chloride 102 mmol/L (98-107); Creatinine, Serum 0.82 mg/dL (0.70-1.30); EST Glomerular Filtration Rate 95 mL/min (>60); Est Glom Filt Rate - Afr Amer 115 mL/min (>60); Glucose 108 mg/dL (74-106); Potassium 3.9 mmol/L (3.5-5.1); Sodium Level 137 mmol/L (136-145)
[2018-03-12 15:14] LABS: BNP,B-Type NATRIURETIC PEPTIDE 29.4 pg/mL (0-100)
== END ==
PROVIDERS: Family Medicine; Family Provider Family Medicine; PCP Family Medicine; Visit Provider Family Medicine
DX: I10 Essential (primary) hypertension (principal); R06.02 Shortness of breath
CPT/HCPCS: 36415; 80048; 83880

== ENCOUNTER → 2018-10-28 10:59 | Outpatient (CLI) | payer MEDICARE, SELFPAY ==
[2017-10-24 20:51] VITALS: BMI 32.4
[2018-10-28 12:26] LABS: Absolute Lymphocyte Count 2.32 X10^3/ul (0.83-4.51); Absolute Neutrophil Count 5.2 X10^3/uL (2.0-7.7); Basophil# 0.02 X10^3/uL; Basophil% 0.2 % (0-1); Eosinophil# 0.19 X10^3/uL; Eosinophils% 2.1 % (0-5); Hematocrit 42.9 % (40-54); Hemoglobin 13.7 g/dl (13.0-16.5); Lymphocyte # 2.32 X10^3/ul (4.0); Lymphocyte % 26.2 % (19-41); Mean Corp Hgb Conc 31.9 g/gl (32-36); Mean Corpuscular Hgb 29.8 pg (27.0-32.0); Mean Corpuscular Volume 93.3 fL (80-94); Mean Platelet Vol. 10.1 fl (6.2-12.0); Monocyte# 1.12 X10^3/uL; Monocyte% 12.6 % (0-10); Neutrophil % 58.7 % (47-70); Platelet Count 282 K/mm3 (150-450); RBC Distribution Width CV 13.8 % (11.6-14.6); RBC Distribution Width SD 45.8 fl (35.1-43.9); White Blood Count 8.9 K/mm3 (4.4-11.0)
[2018-10-28 12:35] LABS: POSITIVE COUNT NO; POSITIVE DIFFERENTIAL NO; POSITIVE MORPHOLOGY NO
[2018-10-28 12:36] LABS: Anion Gap 7 (5-15); BUN 16 mg/dL (7-18); BUN/Creat Ratio 20.3 RATIO (10-20); Calcium,Total 9.5 mg/dL (8.5-10.1); Chloride 103 mmol/L (98-107); Cholesterol 198 mg/dL (200); Creatinine, Serum 0.79 mg/dL (0.70-1.30); EST Glomerular Filtration Rate 100 mL/min (>60); Est Glom Filt Rate - Afr Amer 121 mL/min (>60); Glucose 115 mg/dL (74-106); High Density Lipoprotein 83 mg/dL; Potassium 4.2 mmol/L (3.5-5.1); Sodium Level 142 mmol/L (136-145); Triglycerides 97 mg/dL; Very Low Density Lipoprotein 19 mg/dL (5-40)
[2018-10-28 12:54] LABS: Hemoglobin A1c 5.6 % (4.2-6.3)
[2018-10-31 14:35] LABS: Magnesium 1.7 mg/dL (1.6-2.6)
== END ==
PROVIDERS: Family Provider Family Medicine; PCP Family Medicine; Visit Provider Family Medicine
DX: I10 Essential (primary) hypertension (principal); J44.9 Chronic obstructive pulmonary disease, unspecified; E78.00 Pure hypercholesterolemia, unspecified; R73.01 Impaired fasting glucose; R97.20 Elevated prostate specific antigen [PSA]
CPT/HCPCS: 36415; 80048; 80061; 83036; 83735; 84153; 85025

== ENCOUNTER → 2019-01-27 11:46 | Outpatient (CLI) | payer MEDICARE, SELFPAY ==
[2017-10-24 20:51] VITALS: BMI 32.4
[2019-01-27 14:05] LABS: PSA,Total- Diagnostic 9.69 ng/mL (0.0-4.0)
== END ==
PROVIDERS: Family Provider Family Medicine; PCP Family Medicine; Referring Provider Family Medicine; Visit Provider Family Medicine
DX: R97.20 Elevated prostate specific antigen [PSA] (principal)
CPT/HCPCS: 36415; 84153

== ENCOUNTER 2019-04-07 17:07 | Inpatient (IN) | payer MEDICARE, SELFPAY ==
[2017-10-24 20:51] VITALS: BMI 32.4
[2019-04-07 16:37] VITALS: BMI 30.6
[2019-04-07 16:38] VITALS: BMI 30.6
[2019-04-07 16:59] VITALS: BP 151/77; PULSE 72; RESP 20; TEMP 36.8; O2SAT 97
--- NOTE | 2019-04-07 18:01 | PCM.HP.STD ---
Problem List (1) COPD exacerbation Status: Acute (2) Chronic respiratory failure with hypoxia, on home oxygen therapy Status: Chronic (3) Essential tremor Status: Chronic (4) Depression Status: Chronic (5) HTN (hypertension) Status: Chronic Qualifiers: (6) Obesity (BMI 30.0-34.9) Status: Chronic History of Present Illness Date of Admission: 04/07/19 Chief Complaint: sob The patient is a 83 year old M with pmhx of COPD and chronic hypoxic respiratory failure normally on 3 lpm o2 via NC, also with hx of essential tremor, HTN, depression, who was sent from his pulmonologists office (Dr. Greene). He has been SOB and using up to 5lpm at home all week, and has been very wheezy. He has been treated with aerosols and steroids with no benefit. He is currently resting comfortably at his baseline O2. He has a nonproductive cough. He had a fever at home of 100 yesterday. He does have some LE edema. CXR and labs are pending. [] Past Medical History Past Medical History (Chronic Problems): Chronic Problems Depression (Chronic) Essential tremor (Chronic) COPD (chronic obstructive pulmonary disease) (Chronic) Chronic respiratory failure with hypoxia, on home oxygen therapy (Chronic) Pre-diabetes (Chronic) HTN (hypertension) (Chronic) Obesity (BMI 30.0-34.9) (Chronic) Allergies mussels Adverse Reaction (Verified 10/24/17 20:56) Vomiting Home Medications: Ambulatory Orders Medication Instructions Recorded Albuterol IH (ProAir) [Proair Hfa] 1 - 2 puff INHALATION Q6H PRN 10/24/17 Cholecalciferol (Vitamin D3) 5,000 unit PO DAILY 10/24/17 [Vitamin D3] Curcumin 1 tab PO DAILY 10/24/17 Creede-3 Fatty Acids/Fish Oil [Fish 1 each PO BID 10/24/17 Oil 1,000 mg Capsule] Ubidecarenone [Co Q-10] 10 mg PO DAILY 10/24/17 Albuterol Aerosols [Ventolin 2.5 mg INHALATION Q6H 04/07/19 Aerosols] Amlodipine Besylate 5 mg PO BID 04/07/19 Escitalopram Oxalate 5 mg PO DAILY 04/07/19 Guaifenesin [Mucinex] 1,200 mg PO BID 04/07/19 Melatonin/Pyridoxine HCl (B6) 6 mg PO QHS 04/07/19 [Melatonin 3 mg Tablet] Mometasone/Formoterol [Dulera 200 2 puff INHALATION BID 04/07/19 Mcg/5 Mcg Inhaler] Nebivolol HCl [Bystolic] 2.5 mg PO DAILY 04/07/19 Pantoprazole Sodium [Protonix] 40 mg PO DAILY 04/07/19 Prednisone See Taper PO DAILY 04/07/19 Umeclidinium [place] [Incruse 1 puff INHALATION DAILY 04/07/19 Ellipta] Surgical History: cholecystectomy, herniorrhaphy, tonsillectomy, - - Tonsillectomy, cholecystectomy, bilateral inguinal hernia repair. Psychiatric History: No pertinent psych hx Lives: Spouse/ Significant Other Smoking Status: Former smoker Tobacco Use: Cigarettes Alcohol: Rare Drugs: None - *Family History Maternal History Items: - - Patient notes a maternal family history of stroke in her 80s. Paternal History Items: - - Patient notes a paternal family history of Parkinson's disease with dementia. Sibling History Items: - - Patient notes a sister with Parkinson's disease. Review of Systems Constitutional: Reports: Fever. Denies: Chills, Weight Change HEENT: Denies: Head Aches, Sinus Congestion, Sinus Drainage Cardiovascular: Denies: Chest Pain, Palpitations Respiratory: Reports: Cough, Shortness of Breath, Shortness of breath at rest, Shortness of breath upon exertion, Wheezing. Denies: Sputum production Gastrointestinal: Denies: Abdominal Pain, Nausea, Vomiting Genitourinary: Denies: Dysuria Musculoskeletal: Denies: Joint Pain, Joint Tenderness Skin: Denies: Rash, Wounds Neurological: Denies: Numbness, Tingling, Focal weakness Psychiatric: Denies: Anxiety, Depression, Homicidal Ideations, Suicidal Ideations Hematologic/ Lymphatic: Denies: Easy Bruising, Easy Bleeding VTE Information - Inpt Only VTE Present on Admission: No VTE Mechan Device Prophylaxis: None VTE Pharm Prophylaxis ordered?: Yes Patient Problems: Active and Suspected Problems COPD exacerbation (Acute) - Physical Exam Vitals/I&O's: Vital Signs Temp Pulse Resp BP Pulse Ox 98.2 F 72 20 H 151/77 H 97 04/07/19 16:59 04/07/19 16:59 04/07/19 16:59 04/07/19 16:59 04/07/19 16:59 Oxygen Flow Rate (L/min) 3 Oxygen Delivery Method Nasal Cannula Weight: 189 lb 12.8 oz Body Mass Index (BMI) 30.6 General: Alert, Oriented x3, Cooperative HEENT: Atraumatic, PERRLA, EOMI, Normocephalic Neck: Supple, No JVD, Negative Carotid Bruits Lungs: Normal air movement, Wheezes Cardiovascular: Regular rate, No murmurs Abdomen: Bowel Sounds Present, Soft, Non Tender Extremities: No edema, Capillary Refill Less than 3 Seconds Skin: No rashes, No breakdown Musculoskeletal: No Tenderness to Palpation of Joints or Extremities Neurological: Cranial nerves II-XII grossly intact Psych/Mental Status: Normal Affect, Appropriate Current Medications Sodium Chloride () 10 - 40 ml IV UD PRN PRN Reason: SALINE FLUSH Assessment/Plan All Active Problems COPD exacerbation (Acute) Chest pain (Acute) 1. Acute COPD exacerbation severe wheezing through - obtain CXR, CBC, BMP. Direct admit from [facility] office. Failed outpatient steroids. IV solumedrol, aerosols, azithromycin. Add IS therapy. No fever. 97% on RA. Check 2. Chronic hypoxic respiratory failure - currently comfortable on 3lpm baseline 3. HTN - continue norvasc 4. Depression - lexapro DVT ppx: heparin This patient was seen by Jeferson Chavez PA-C under the supervision of Doctor Morejon.
[2019-04-07 19:00] LABS: Absolute Lymphocyte Count 0.89 X10^3/uL (0.83-4.51); Absolute Neutrophil Count 9.1 X10^3/uL (2.0-7.7); Basophil# 0.01 X10^3/uL; Basophil% 0.1 % (0-1); Eosinophil# 0.01 X10^3/uL; Eosinophils% 0.1 % (0-5); Hematocrit 40.4 % (40-54); Hemoglobin 12.8 g/dL (13.0-16.5); Lymphocyte # 0.89 X10^3/ul (4.0); Lymphocyte % 8.1 % (19-41); Mean Corp Hgb Conc 31.7 g/dL (32-36); Mean Corpuscular Hgb 30.1 pg (27.0-32.0); Mean Corpuscular Volume 95.1 fL (80-94); Mean Platelet Vol. 9.7 fl (6.2-12.0); Monocyte# 0.94 X10^3/uL; Monocyte% 8.5 % (0-10); NRBC Flagged by Analyzer 0 % (0-5); Neutrophil # 9.13 X10^3/uL (2.7-7.7); Neutrophil % 82.7 % (47-70); Platelet Count 324 K/mm3 (150-450); RBC Distribution Width CV 13.3 % (11.6-14.6); RBC Distribution Width SD 46.4 fl (35.1-43.9); Red Blood Count 4.25 M/mm3 (4.6-6.2)
[2019-04-07] MEDS: Azithromycin 250 MG Tablet 500 MG PO (19:01)
[2019-04-07 19:18] LABS: ALB/GLOB Ratio 1.1 RATIO (0.9-2.4); AST(SGOT) 12 U/L (15-37); Alanine Aminotransfer ALT/SGPT 24 U/L (16-61); Albumin, Serum 3.6 g/dL (3.2-5.0); Alkaline Phosphatase 53 U/L (45-117); Anion Gap 4 (5-15); BUN 20 mg/dL (7-18); BUN/Creat Ratio 27.1 RATIO (10-20); Calcium,Total 9.5 mg/dL (8.5-10.1); Chloride 101 mmol/L (98-107); Creatinine, Serum 0.74 mg/dL (0.70-1.30); EST Glomerular Filtration Rate 108 mL/min (>60); Est Glom Filt Rate - Afr Amer 130 mL/min (>60); Estimated Creatinine Clearance 51.39 ml/min; Globulin 3.3 g/dL (2.2-4.2); Glucose 152 mg/dL (74-106); Potassium 4.1 mmol/L (3.5-5.1); Protein, Total 6.9 g/dL (6.4-8.2); Sodium Level 140 mmol/L (136-145)
--- NOTE | 2019-04-07 19:50 | RAD_ITS ---
STUDY: X-RAY CHEST REASON FOR EXAM: Male, 83 years old. Shortness of breath TECHNIQUE: PA and lateral views of the chest. COMPARISON: October 24, 2017 chest x-ray FINDINGS: Since prior study there is no significant interval change in the lung markings. There is a hyperinflated hyperlucent appearance of the upper lung zone and increased interstitial markings in the lower lobes. The interstitial There is no demonstrated pleural abnormality. Normal size heart. Normal mediastinum and juan manuel. Normal visualized pulmonary arteries. Normal visualized aortic arch and descending thoracic aorta. There are diffuse degenerative changes of the visualized thoracic spine. Normal visualized ribs, clavicles, and shoulders. There is no demonstrated abnormality of the visualized soft tissue structures of the upper abdomen. RAD/Chest PA and Lateral IMPRESSION: Findings suggestive of underlying chronic lung disease. No significant change since prior study. Electronically Signed: Yudi Esparza MD at 21:17 EDT Tel , Service support ,
[2019-04-07 20:09] VITALS: PULSE 64; RESP 22; RESP 24; O2SAT 96
[2019-04-07] MEDS: Ipratropium/Albuterol Sulfate 3 ML AMPUL.NEB INHALATION ×2 (20:09→23:45)
[2019-04-07 22:32] VITALS: BP 160/73; PULSE 69; RESP 20; TEMP 37.2; O2SAT 96
[2019-04-07] MEDS: Heparin Injection (Vial) 5,000 UNIT/ML VIAL 5000 UNIT SC (22:35)
[2019-04-07] MEDS: amLODIPine 5 MG Tablet PO (22:35)
[2019-04-07] MEDS: 0.9% Saline Lock 10 ML Syringe IV (22:36)
[2019-04-07 23:45] VITALS: PULSE 66; RESP 18
[2019-04-08] VITALS (13 sets, daily range): BP systolic 124–170; BP diastolic 69–88; PULSE 62–82; RESP 16–20; TEMP 36.4–37.1; O2SAT 94–98
[2019-04-08] MEDS: Ipratropium/Albuterol Sulfate 3 ML AMPUL.NEB INHALATION ×6 (02:45→23:45)
[2019-04-08] MEDS: 0.9% Saline Lock 10 ML Syringe IV ×3 (06:22→21:35)
[2019-04-08] MEDS: Heparin Injection (Vial) 5,000 UNIT/ML VIAL 5000 UNIT SC ×3 (06:25→21:35)
[2019-04-08] MEDS: amLODIPine 5 MG Tablet PO ×2 (08:05→21:34)
[2019-04-08] MEDS: Azithromycin 250 MG Tablet 500 MG PO (08:06)
[2019-04-08] MEDS: Pantoprazole Sodium 40 MG Tablet PO (08:06)
[2019-04-08] MEDS: Fluticasone 0.05% 1 SPRAY NASAL.SRY NASAL ×2 (10:35→21:35)
[2019-04-08] MEDS: Ibuprofen 600 MG Tablet PO (10:35)
--- NOTE | 2019-04-08 13:06 | CASEMGMT ---
SW met w/pt and , reviewed LW/POA forms. Pt would like to complete the forms tomorrow. SW gave pt the forms and this SW's number, told them to call SW when they would like to complete the forms. KENIA Lunsford
--- NOTE | 2019-04-08 13:23 | PCM.PROGNOTE ---
<Jeferson Chavez - Last Filed: 04/08/19 13:23> Patient Problems: Active and Suspected Problems COPD exacerbation (Acute) Subjective: Still very dyspneic at rest, worse with exertion. No fever/chills. Cough is nonproductive. No CP. His oxygenation is stable on home o2 (3lpm). He is hesitant to go home as he still does not feel back to normal. - Physical Exam Vitals/I&O's: Vital Signs Temp Pulse Resp BP Pulse Ox 98.4 F 70 18 170/88 H 94 04/08/19 08:10 04/08/19 11:36 04/08/19 11:36 04/08/19 08:10 04/08/19 10:07 Oxygen Flow Rate (L/min) [ 3 AMBULATION with Oxygen] Oxygen Flow Rate (L/min) 3 Oxygen Delivery Method Nasal Cannula Weight: 189 lb 12.806 oz Body Mass Index (BMI) 30.6 Intake and Output for Last 24 Hours 04/06/19 04/07/19 04/08/19 23:59 23:59 23:59 Intake Total 100 / 100 400 / 400 Balance 100 / 100 400 / 400 General: Alert, Oriented x3, Cooperative HEENT: Atraumatic, PERRLA, EOMI, Normocephalic Neck: Supple, No JVD, Negative Carotid Bruits Lungs: Diminished, Wheezes Cardiovascular: Regular rate, No murmurs Abdomen: Bowel Sounds Present, Soft, Non Tender Extremities: No edema, Capillary Refill Less than 3 Seconds Skin: No rashes, No breakdown Musculoskeletal: No Tenderness to Palpation of Joints or Extremities Neurological: Cranial nerves II-XII grossly intact Psych/Mental Status: Normal Affect, Appropriate, Alert and oriented to time, place, person, mood and affect Laboratory Results 04/07/19 18:42: WBC 11.0, RBC 4.25 L, Hgb 12.8 L, Hct 40.4, MCV 95.1 H, MCH 30.1, MCHC 31.7 L, RDW Std Deviation 46.4 H, RDW Coeff of Андрей 13.3, Plt Count 324, MPV 9.7, Immature Gran % (Auto) 0.500, Neut % (Auto) 82.7 H, Lymph % (Auto) 8.1 L, Prowers % (Auto) 8.5, Eos % (Auto) 0.1, Baso % (Auto) 0.1, Absolute Neuts (auto) 9.1 H, Absolute Lymphs (auto) 0.89, Nucleated RBC % 0 04/07/19 18:42: Sodium 140, Potassium 4.1, Chloride 101, Carbon Dioxide 35.0 H, Anion Gap 4 L, BUN 20 H, Creatinine 0.74, Estim Creat Clear Calc 51.39, Est GFR (MDRD) Af Amer 130, Est GFR (MDRD) Non-Af 108, BUN/Creatinine Ratio 27.1 H, Glucose 152 H, Calcium 9.5, Total Bilirubin 0.30, AST 12 L, ALT 24, Alkaline Phosphatase 53, Total Protein 6.9, Albumin 3.6, Globulin 3.3, Albumin/Globulin Ratio 1.1 Current Medications Acetaminophen (Tylenol) 650 mg PO Q6H PRN PRN PRN Reason: Pain Score 1-3/Temp > 100.7 F Albuterol Sulfate (Ventolin Aerosols) 2.5 mg INHALATION Q2H PRN PRN PRN Reason: sob, wheezing Albuterol/Ipratropium (Duoneb) 3 ml INHALATION Q4H.RT [facility] Last Admin: 04/08/19 11:34 Dose: 3 ml Documented by: Amlodipine Besylate (Norvasc) 5 mg PO BID [facility] Last Admin: 04/08/19 08:05 Dose: 5 mg Documented by: Azithromycin (Zithromax) 500 mg PO Q24 [facility] Last Admin: 04/08/19 08:06 Dose: 500 mg Documented by: Fluticasone Propionate (Flonase Nasal [place]) 1 spray NASAL BID [facility] Last Admin: 04/08/19 10:35 Dose: 1 spray Documented by: Heparin Sodium (Porcine) (Heparin Na) 5,000 unit SC Q8 [facility] Last Admin: 04/08/19 06:25 Dose: 5,000 unit Documented by: Ibuprofen (Motrin) 400 mg PO Q8H PRN PRN PRN Reason: headache/mild pain Methylprednisolone (Solu-Medrol) 40 mg IV Q8 [facility] Last Admin: 04/08/19 06:21 Dose: 40 mg Documented by: Nebivolol (Bystolic) 2.5 mg PO DAILY [facility] Last Admin: 04/08/19 08:05 Dose: 2.5 mg Documented by: Nutritional Formula (Lactose Free) (Ensure Enlive) 120 ml PO 4X/DAY [facility] Last Admin: 04/08/19 08:12 Dose: 120 ml Documented by: Pantoprazole Sodium (Protonix) 40 mg PO DAILY [facility] Last Admin: 04/08/19 08:06 Dose: 40 mg Documented by: Sodium Chloride () 10 - 40 ml IV UD PRN PRN Reason: SALINE FLUSH Last Admin: 04/08/19 06:22 Dose: 10 ml Documented by: Medical Necessity - Tobacco Use Smoking Status: Former smoker Tobacco Use: Cigarettes Assessment/Plan All Active Problems COPD exacerbation (Acute) Chest pain (Acute) 1. Acute COPD exacerbation severe wheezing through - no fever/leukocytosis. CXR negative. Still very SOB and wheezy. Continue aerosols, solumedrol, IS. 2. Chronic hypoxic respiratory failure - currently comfortable on 3lpm baseline 3. HTN - continue norvasc 4. Depression - lexapro DVT ppx: heparin This patient was seen by Jeferson Chavez PA-C under the supervision of Doctor Mushtaq <Abhishek Landin - Last Filed: 04/08/19 15:27> Subjective: Patient was admitted yesterday for shortness of breath, dyspnea on exertion progressed to rest and nonproductive cough. Overall clinical picture consistent with COPD exacerbation. - Physical Exam Vitals/I&O's: Vital Signs Temp Pulse Resp BP Pulse Ox 98.7 F 72 20 H 124/70 H 98 04/08/19 14:50 04/08/19 14:50 04/08/19 14:50 04/08/19 14:50 04/08/19 14:50 Oxygen Flow Rate (L/min) [ 3 AMBULATION with Oxygen] Oxygen Flow Rate (L/min) 2 Oxygen Delivery Method Nasal Cannula Weight: 189 lb 12.806 oz Body Mass Index (BMI) 30.6 Intake and Output for Last 24 Hours 04/06/19 04/07/19 04/08/19 23:59 23:59 23:59 Intake Total 100 / 100 400 / 400 Balance 100 / 100 400 / 400 General: Alert, Oriented x3, Cooperative HEENT: Atraumatic, PERRLA, EOMI, Normocephalic Neck: Supple, No JVD, Negative Carotid Bruits Lungs: Diminished - Air entry diminished in all lung pruitt, Rhonchi, Short of Breath, Wheezes Cardiovascular: Regular rate, Regular Rhythm, Normal S1, Normal S2, No murmurs Abdomen: Bowel Sounds Present, Non Tender, Non-Distended Extremities: No edema, Capillary Refill Less than 3 Seconds Skin: No rashes, No breakdown Musculoskeletal: No Tenderness to Palpation of Joints or Extremities, Arthritic Changes Neurological: Cranial nerves II-XII grossly intact, Deep Tendon Reflexes 2+/4 and Symmetrical, Neuro grossly intact, Motor Exam 5/5 strength throughout Psych/Mental Status: Normal Affect, Appropriate Laboratory Results 04/07/19 18:42: WBC 11.0, RBC 4.25 L, Hgb 12.8 L, Hct 40.4, MCV 95.1 H, MCH 30.1, MCHC 31.7 L, RDW Std Deviation 46.4 H, RDW Coeff of Андрей 13.3, Plt Count 324, MPV 9.7, Immature Gran % (Auto) 0.500, Neut % (Auto) 82.7 H, Lymph % (Auto) 8.1 L, Prowers % (Auto) 8.5, Eos % (Auto) 0.1, Baso % (Auto) 0.1, Absolute Neuts (auto) 9.1 H, Absolute Lymphs (auto) 0.89, Nucleated RBC % 0 04/07/19 18:42: Sodium 140, Potassium 4.1, Chloride 101, Carbon Dioxide 35.0 H, Anion Gap 4 L, BUN 20 H, Creatinine 0.74, Estim Creat Clear Calc 51.39, Est GFR (MDRD) Af Amer 130, Est GFR (MDRD) Non-Af 108, BUN/Creatinine Ratio 27.1 H, Glucose 152 H, Calcium 9.5, Total Bilirubin 0.30, AST 12 L, ALT 24, Alkaline Phosphatase 53, Total Protein 6.9, Albumin 3.6, Globulin 3.3, Albumin/Globulin Ratio 1.1 Current Medications Acetaminophen (Tylenol) 650 mg PO Q6H PRN PRN PRN Reason: Pain Score 1-3/Temp > 100.7 F Albuterol Sulfate (Ventolin Aerosols) 2.5 mg INHALATION Q2H PRN PRN PRN Reason: sob, wheezing Last Admin: 04/08/19 13:27 Dose: 2.5 mg Documented by: Albuterol/Ipratropium (Duoneb) 3 ml INHALATION Q4H.RT [facility] Last Admin: 04/08/19 14:59 Dose: 3 ml Documented by: Amlodipine Besylate (Norvasc) 5 mg PO BID [facility] Last Admin: 04/08/19 08:05 Dose: 5 mg Documented by: Azithromycin (Zithromax) 500 mg PO Q24 [facility] Last Admin: 04/08/19 08:06 Dose: 500 mg Documented by: Fluticasone Propionate (Flonase Nasal [place]) 1 spray NASAL BID [facility] Last Admin: 04/08/19 10:35 Dose: 1 spray Documented by: Heparin Sodium (Porcine) (Heparin Na) 5,000 unit SC Q8 [facility] Last Admin: 04/08/19 14:50 Dose: 5,000 unit Documented by: Ibuprofen (Motrin) 400 mg PO Q8H PRN PRN PRN Reason: headache/mild pain Magnesium Hydroxide (Milk Of Magnesia) 30 ml PO DAILY PRN PRN PRN Reason: Constipation Methylprednisolone (Solu-Medrol) 40 mg IV Q8 [facility] Last Admin: 04/08/19 14:49 Dose: 40 mg Documented by: Nebivolol (Bystolic) 2.5 mg PO DAILY [facility] Last Admin: 04/08/19 08:05 Dose: 2.5 mg Documented by: Nutritional Formula (Lactose Free) (Ensure Enlive) 120 ml PO 4X/DAY [facility] Last Admin: 04/08/19 14:55 Dose: 120 ml Documented by: Pantoprazole Sodium (Protonix) 40 mg PO DAILY [facility] Last Admin: 04/08/19 08:06 Dose: 40 mg Documented by: Polyethylene Glycol (Miralax) 17 gm PO DAILY PRN PRN PRN Reason: Constipation Senna/Docusate Sodium (Senokot-S, Massiel-Colace) 1 tablet PO DAILY PRN PRN PRN Reason: Constipation Sodium Chloride () 10 - 40 ml IV UD PRN PRN Reason: SALINE FLUSH Last Admin: 04/08/19 14:49 Dose: 10 ml Documented by: Assessment/Plan This patient was seen in conjunction with Jeferson KAY. I have independently interviewed and examined the patient and reviewed pertinent history, examination findings, laboratory and plan of management. I have reviewed the note and agree with the documented findings with the few additional points. In brief, patient is 83-year-old gentleman admitted for shortness of breath, dyspnea at rest, nonproductive cough and wheezing consistent with acute COPD exacerbation. Chest x-ray negative for acute infiltrate. On bronchodilator, IV Solu-Medrol, bronchopulmonary hygiene and Mucinex. Patient follows Dr. Greene and is on 3 L of home oxygen suggestive of chronic hypoxic respiratory failure I have discussed my assessment with Jeferson KAY and orders have been reviewed. Code Visit Inpatient E&M: 13988 Subs Hosp L2
[2019-04-08] MEDS: Albuterol 2.5 MG/3 ML VIAL.NEB. INHALATION (13:27)
--- NOTE | 2019-04-08 14:00 | CASEMGMT ---
Intro role of CM to patient and [facility] form explained re: Observation status for treatment. Explained hospitalization will be paid per? insurance policy for Outpatient billing?and condition will continue to be evaluated for Inpt necessity. Also let pt know that [facility] sends paper in the billing packet with their phone number if questions arise. Discussed Pharmacy section of [facility] form and self administered medication guideline.? Pt verbalizes understanding and does not have further questions. Form signed and placed in chart, copy to pt. SAMIRA ELECTR[employer] INSTRUMENT TECHNICIAN CM
--- NOTE | 2019-04-08 14:43 | CASEMGMT ---
RN ULISES CONSTRUCTION CONSULTANT CM to room to meet with patient for initial transition planning/care coordination assessment. RN ULISES introduced self and role at [facility]. Pt voices understanding and consents to assessment at this time. Pt sitting up in recliner chair in no distress at this time. in room visiting. Pt is A/O at this time and answers all questions appropriately. Care providers, pharmacy, and demographics verified at this time. PCP: Dr Jaime Vidales Specialists: Dr Jc Tam Pharmacy: [facility] Insurance: [employer] [facility] Prescription Benefit: [employer]. Copy of card made and sent to registration to be placed on pt's file. Original card given back to . Living Will/HPOA: States does not have LW or HCPOA . Interested in more information and would like to talk to SW to complete paperwork. RAMAN, Elsa Salmeron, made aware. LNOK: , Jazmin Living Arrangements: Lives in one-story home w/basement with his . States he does have to go to the basement on occasion and states does terrible with the stairs. Pt advised to tell his therapist @ [facility] that he is having difficulty with stairs at home, so they can work with him w/stairs. Pt voices appreciation. Transportation: Pt states drives self and states no transportation concerns at this time. DME: has the following DME: O2 at 2-3 L/M through [employer] Has concentrator and portability which is in his room to use @ discharge. Has nebulizer that he just got through [facility] last week. Pt states no need for further DME at this time. HHC/SNF: No history of either and denies needs. PT/OT evals have been completed/reviewed. PT recommends additional therapy. Discussed PT's recommendations for further therapy. Pt would like to go to [facility] for OP therapy and are agreeable to having script for therapy faxed to [facility]. Pt and state they will schedule the appts. MS Elsa3 REBECA MONTGOMERY made aware. Pt wishes to return home with OP therapy @ [facility] and states has no concerns with going home at time of discharge. CM to follow for any further discharge planning/needs. Pt and voice no further concerns/needs at this time. Advised them to ask for CM if any further questions/concerns/needs arise. They voice understanding. PLAN: Home w/OP therapy @ [facility]. Gunner LONGON RN CM
--- NOTE | 2019-04-08 14:44 | CHAPLAIN ---
Type of Pastoral Visit _x__ Initial Visit ___ Follow-up Visit ___ On-call Visit ___ General Patient Visit ___ Spiritual Assessment ___ Family Conference ___ Bereavement ___ Rapid Response ___ Code Blue ___ Other (describe below) Pastoral Care Referral From _x__ Patient ___ Family ___ Nurse ___ Physician ___ Medical Staff Credentialing Coordinator ___ It Risk And Assurance Manager ___ Other (describe below) Sacrament/Intervention _x__ Active listening ___ Anointing ___ Nondenominational ___ Bereavement ___ Communion _x__ Laney exploration ___ _x__ Life review _x__ Prayer ___ Reconciliation ___ Sacrament of Sick _x__ Supportive presence ___ Wedding ___ Other (describe below) Pastoral Comments of spouse did most of the talking as patient was tended to by RT and RN at times during the visit
[2019-04-08] MEDS: Polyethylene Glycol 3350 17 GM PACKET PO (16:02)
[2019-04-08] MEDS: guaiFENesin 1,200 MG Tablet 1200 MG PO ×2 (16:02→21:34)
[2019-04-09] VITALS (12 sets, daily range): BP systolic 139–165; BP diastolic 72–84; PULSE 75–100; RESP 18–24; TEMP 36.6–36.9; O2SAT 94–100
[2019-04-09] MEDS: Ipratropium/Albuterol Sulfate 3 ML AMPUL.NEB INHALATION ×6 (03:20→23:05)
[2019-04-09] MEDS: 0.9% Saline Lock 10 ML Syringe IV ×3 (05:20→22:38)
[2019-04-09] MEDS: Heparin Injection (Vial) 5,000 UNIT/ML VIAL 5000 UNIT SC ×3 (05:21→22:38)
[2019-04-09] MEDS: Ibuprofen 400 MG Tablet PO ×2 (05:58→22:37)
[2019-04-09] MEDS: amLODIPine 5 MG Tablet PO ×2 (06:00→10:31)
[2019-04-09 07:33] LABS: Anion Gap 6 (5-15); BUN 27 mg/dL (7-18); BUN/Creat Ratio 28.7 RATIO (10-20); Calcium,Total 9.6 mg/dL (8.5-10.1); Chloride 97 mmol/L (98-107); Creatinine, Serum 0.94 mg/dL (0.70-1.30); EST Glomerular Filtration Rate 81 mL/min (>60); Est Glom Filt Rate - Afr Amer 98 mL/min (>60); Estimated Creatinine Clearance 54.67 ml/min; Glucose 203 mg/dL (74-106); Potassium 4.2 mmol/L (3.5-5.1); Sodium Level 137 mmol/L (136-145)
[2019-04-09] MEDS: guaiFENesin 1,200 MG Tablet 1200 MG PO ×2 (07:51→22:38)
[2019-04-09] MEDS: Pantoprazole Sodium 40 MG Tablet PO (07:51)
[2019-04-09] MEDS: Azithromycin 250 MG Tablet 500 MG PO (07:51)
[2019-04-09] MEDS: Fluticasone 0.05% 1 SPRAY NASAL.SRY NASAL (07:51)
--- NOTE | 2019-04-09 08:53 | PN_ITS ---
Patient Problems: Active and Suspected Problems COPD exacerbation (Acute) Subjective: Patient still has shortness of breath, dry cough but able to break mucus. On DuoNeb every 4 hourly, Mucinex and IV Solu-Medrol. No fever. Vitals/I&O's: Vital Signs Temp Pulse Resp BP Pulse Ox 97.8 F 90 18 165/72 H 98 04/09/19 05:00 04/09/19 07:03 04/09/19 07:03 04/09/19 05:00 04/09/19 07:03 Oxygen Flow Rate (L/min) [ 3 AMBULATION with Oxygen] Oxygen Flow Rate (L/min) 2 Oxygen Delivery Method Nasal Cannula Weight: 189 lb 12.806 oz Body Mass Index (BMI) 30.6 Intake and Output for Last 24 Hours 04/07/19 04/08/19 04/09/19 23:59 23:59 23:59 Intake Total 100 / 100 1200 / 1200 200 / 200 Balance 100 / 100 1200 / 1200 200 / 200 General: Alert, Oriented x3, Cooperative HEENT: Atraumatic, PERRLA, EOMI, Normocephalic Neck: Supple, No JVD, Negative Carotid Bruits Lungs: Clear to auscultation, Diminished - Air entry severely diminished., Rhonchi, Short of Breath Cardiovascular: Regular rate, Regular Rhythm, Normal S1, Normal S2, No murmurs Abdomen: Bowel Sounds Present, Soft, Non Tender, Non-Distended Extremities: No edema, Capillary Refill Less than 3 Seconds Skin: No rashes, No breakdown Musculoskeletal: No Tenderness to Palpation of Joints or Extremities, Arthritic Changes Neurological: Cranial nerves II-XII grossly intact, Deep Tendon Reflexes 2+/4 and Symmetrical, Neuro grossly intact Psych/Mental Status: Normal Affect, Appropriate Laboratory Results 04/09/19 06:55: Sodium 137, Potassium 4.2, Chloride 97 L, Carbon Dioxide 34.0 H, Anion Gap 6, BUN 27 H, Creatinine 0.94, Estim Creat Clear Calc 54.67, Est GFR (MDRD) Af Amer 98, Est GFR (MDRD) Non-Af 81, BUN/Creatinine Ratio 28.7 H, Glucose 203 H, Calcium 9.6 Current Medications Acetaminophen (Tylenol) 650 mg PO Q6H PRN PRN PRN Reason: Pain Score 1-3/Temp > 100.7 F Albuterol Sulfate (Ventolin Aerosols) 2.5 mg INHALATION Q2H PRN PRN PRN Reason: sob, wheezing Last Admin: 04/08/19 13:27 Dose: 2.5 mg Documented by: Albuterol/Ipratropium (Duoneb) 3 ml INHALATION Q4H.RT [facility] Last Admin: 04/09/19 07:01 Dose: 3 ml Documented by: Amlodipine Besylate (Norvasc) 5 mg PO BID [facility] Last Admin: 04/09/19 06:00 Dose: 5 mg Documented by: Azithromycin (Zithromax) 500 mg PO Q24 [facility] Last Admin: 04/09/19 07:51 Dose: 500 mg Documented by: Fluticasone Propionate (Flonase Nasal [place]) 1 spray NASAL BID [facility] Last Admin: 04/09/19 07:51 Dose: 1 spray Documented by: Guaifenesin (Mucinex) 1,200 mg PO BID [facility] Last Admin: 04/09/19 07:51 Dose: 1,200 mg Documented by: Heparin Sodium (Porcine) (Heparin Na) 5,000 unit SC Q8 [facility] Last Admin: 04/09/19 05:21 Dose: 5,000 unit Documented by: Ibuprofen (Motrin) 400 mg PO Q8H PRN PRN PRN Reason: headache/mild pain Last Admin: 04/09/19 05:58 Dose: 400 mg Documented by: Magnesium Hydroxide (Milk Of Magnesia) 30 ml PO DAILY PRN PRN PRN Reason: Constipation Methylprednisolone (Solu-Medrol) 40 mg IV Q8 [facility] Last Admin: 04/09/19 05:21 Dose: 40 mg Documented by: Nebivolol (Bystolic) 2.5 mg PO DAILY [facility] Last Admin: 04/09/19 07:51 Dose: 2.5 mg Documented by: Nutritional Formula (Lactose Free) (Ensure Enlive) 120 ml PO 4X/DAY [facility] Last Admin: 04/09/19 07:54 Dose: Not Given Documented by: Pantoprazole Sodium (Protonix) 40 mg PO DAILY [facility] Last Admin: 04/09/19 07:51 Dose: 40 mg Documented by: Polyethylene Glycol (Miralax) 17 gm PO DAILY PRN PRN PRN Reason: Constipation Last Admin: 04/08/19 16:02 Dose: 17 gm Documented by: Senna/Docusate Sodium (Senokot-S, Massiel-Colace) 1 tablet PO DAILY PRN PRN PRN Reason: Constipation Sodium Chloride () 10 - 40 ml IV UD PRN PRN Reason: SALINE FLUSH Last Admin: 04/09/19 05:20 Dose: 10 ml Documented by: STROKE Vital Signs/Narrative: Vital Signs Temp Pulse Resp BP Pulse Ox 04/09/19 07:03 90 18 98 04/09/19 05:00 97.8 F 83 20 H 165/72 H 97 Medical Necessity - Tobacco Use Smoking Status: Former smoker Tobacco Use: Cigarettes Assessment/Plan All Active Problems COPD exacerbation (Acute) Chest pain (Acute) The patient is 83-year-old gentleman admitted for shortness of breath, dyspnea at rest, nonproductive cough and wheezing consistent with acute COPD exacerbation. Chest x-ray negative for acute infiltrate. On bronchodilator, IV Solu-Medrol, bronchopulmonary hygiene and Mucinex. Patient follows Dr. Greene and is on 3 L of home oxygen suggestive of chronic hypoxic respiratory failure 1. Acute COPD exacerbation severe wheezing through - no fever/leukocytosis. CXR negative. Still very SOB and wheezy and very decreased air entry bilaterally. Continue aerosols, solumedrol, IS. Will need walking pulse oximetry prior to discharge. Respiratory panel ordered 2. Chronic hypoxic respiratory failure - currently comfortable on 3lpm baseline 3. HTN - continue norvasc. Losartan 50 mg daily added. 4. Depression - lexapro DVT ppx: heparin 5000 units subcu every 8 hourly Code Visit Inpatient E&M: 19529 Subs Hosp L2
[2019-04-09] MEDS: Losartan Potassium 50 MG Tablet PO (10:31)
--- NOTE | 2019-04-09 13:38 | CASEMGMT ---
Case Management Progress Note: went to patient bedside with patient and present, introduced self and role. This literary writer explained and reviewed MCCABE form with patient and in regards to treatment and outpatient billing being determined by patient insurance policy. All questions addressed and answered. This literary writer was not aware MCCABE given yesterday as other RNCM had completed and placing late entry note. Patient questioning what his charges would be like and this literary writer advised could call [facility] financial dept, Insurance [employer] or look in their annual policy if they have one. states lives a little distance from hospital and has been staying at a hotel, therefore annual policy is not readily available. denies wanting [facility] financial dept contact information and states that she could call insurance [employer] directly as they would be the best source. States has [employer]'s contact information. No further issues or concerns. Signed copy placed in patient hard chart, patient provided a copy. TOVA Tirado
--- NOTE | 2019-04-09 15:48 | VDLE_ITS ---
Reason For Study: Leg swelling RIGHT LEFT GSV is normal. GSV is normal. CFV is compressible, spontaneous, phasic, CFV is compressible, spontaneous, phasic, competent and demonstrates normal competent, and demonstrates normal augmentation. augmentation. FV is compressible, spontaneous, phasic, FV is compressible, spontaneous, phasic, competent and demonstrates normal competent and demonstrates normal augmentation. augmentation. POP V is compressible, spontaneous, phasic, POP V is compressible, spontaneous, phasic, competent and demonstrates normal competent and demonstrates normal augmentation. augmentation. T/P Trunk is compressible. T/P Trunk is compressible. PTV is compressible. PTV is compressible. RT PerV is compressible. LT PerV is compressible. Procedure Exam performed portable in patient room. A preliminary report was called and/or faxed to [facility]. Interpretation Summary No evidence for acute deep venous thrombosis bilateral lower extremities with patent and compressible bilateral great saphenous veins. Ordering Physician: Abhishek Landin Referring Physician: Jaime Vidales Performed By: Elsa Swift RVT
[2019-04-10] VITALS (10 sets, daily range): BP systolic 146–165; BP diastolic 70–83; PULSE 73–92; RESP 16–22; TEMP 36.5–37; O2SAT 94–98
[2019-04-10] MEDS: Ipratropium/Albuterol Sulfate 3 ML AMPUL.NEB INHALATION ×4 (02:48→15:18)
[2019-04-10] MEDS: 0.9% Saline Lock 10 ML Syringe IV ×2 (05:39→14:31)
[2019-04-10] MEDS: Heparin Injection (Vial) 5,000 UNIT/ML VIAL 5000 UNIT SC (05:40)
--- NOTE | 2019-04-10 07:30 | NURSING ---
Pt educated on COPD and why ideal to keep spo2 around 94-95% d/t retaining CO2. Pt verbalized understanding and states that his likes to keep it at 98-99%. He states that at home, at rest, his oxygen is usually around 95% but that he believes he needs it with activity and when sleeping. Pt verbalized plans to be d/c'ed today- notified we will have to wait on doctor to round.
[2019-04-10] MEDS: amLODIPine 5 MG Tablet PO (07:54)
[2019-04-10] MEDS: Ensure Clear 120 ML Liquid PO ×2 (08:00→12:23)
--- NOTE | 2019-04-10 09:34 | PCM.DC ---
- Discharge Diagnoses Current Active Problems: Current Active and Chronic Problems COPD exacerbation (Acute) Depression (Chronic) Essential tremor (Chronic) You will use the following diet at home:: Calorie/Carbohydrate Controlled (specify 1200, 1400, etc) Your food should be the consistency of: Regular Discharge Activity: May Not Drive Weight Bearing Status: Weight bearing as tolerated Call your doctor if you observe: Fever of 101 or Higher, Coldness, Increased Pain, Inability to urinate, Inability to have a bowel movement, Shortness of breath, Dizziness, Fainting spells, Swelling in the ankles, Chest pain, Prolonged hiccoughing, Increased palpitations (irregular heartbeat), Uncontrolled pain Allergies/Adverse Reactions: Allergies mussels Adverse Reaction (Verified 10/24/17 20:56) Vomiting Medications to take at Discharge Albuterol IH (ProAir) [Proair Hfa] 1 - 2 puff INHALATION Q6H PRN 10/24/17 Cholecalciferol (Vitamin D3) [Vitamin D3] 5,000 unit PO DAILY 10/24/17 Curcumin 1 tab PO DAILY 10/24/17 [place]-3 Fatty Acids/Fish Oil [Fish Oil 1,000 mg Capsule] 1 each PO BID 10/24/17 Ubidecarenone [Co Q-10] 10 mg PO DAILY 10/24/17 Albuterol Aerosols [Ventolin Aerosols] 2.5 mg INHALATION Q6H 04/07/19 Escitalopram Oxalate 5 mg PO DAILY 04/07/19 Melatonin/Pyridoxine HCl (B6) [Melatonin 3 mg Tablet] 6 mg PO QHS 04/07/19 Mometasone/Formoterol [Dulera 200 Mcg/5 Mcg Inhaler] 2 puff INHALATION BID 04/07/19 Pantoprazole Sodium [Protonix] 40 mg PO DAILY 04/07/19 Umeclidinium [place] [Incruse Ellipta] 1 puff INHALATION DAILY 04/07/19 Guaifenesin [Mucinex] 1,200 mg PO BID #14 tab 04/10/19 Losartan Potassium [Cozaar] 50 mg PO DAILY #30 tab 04/10/19 Nebivolol HCl [Bystolic] 5 mg PO DAILY #0 04/10/19 Prednisone 10 mg PO DAILY #30 tab 04/10/19 The following prescriptions were given: Losartan Potassium [Cozaar] 50 mg PO DAILY #30 tab Transmission Status: Pending to [facility] Guaifenesin [Mucinex] 1,200 mg PO BID #14 tab Transmission Status: Pending to [facility] Prednisone 10 mg PO DAILY #30 tab Prescription Printed Primary Care Physician: Jaime Vidales MD [Primary Care Provider] - Please follow up with your Primary Care Physician in: in 2 weeks Test Results: Test results from this visit will be discussed in further detail at your follow-up appointment, if applicable. Please Follow Up With: Tung Greene MD When: in 2 weeks
--- NOTE | 2019-04-10 09:36 | PCM.DC.SUM ---
Discharge Date and Diagnosis Date of Admission: 04/07/19 Date of Discharge: 04/10/19 - Primary Discharge Diagnosis Active and Suspected Problems COPD exacerbation (Acute) - Secondary Discharge Diagnosis Chronic Problems Depression (Chronic) Essential tremor (Chronic) COPD (chronic obstructive pulmonary disease) (Chronic) Chronic respiratory failure with hypoxia, on home oxygen therapy (Chronic) Pre-diabetes (Chronic) HTN (hypertension) (Chronic) Obesity (BMI 30.0-34.9) (Chronic) Hospital Course and Treatment Operations: None Summary of Care Provided: [] The patient is 83-year-old gentleman admitted for shortness of breath, dyspnea at rest, nonproductive cough and wheezing consistent with acute COPD exacerbation. Chest x-ray negative for acute infiltrate. On bronchodilator, IV Solu-Medrol, bronchopulmonary hygiene and Mucinex. Patient follows Dr. Greene and is on 3 L of home oxygen suggestive of chronic hypoxic respiratory failure 1. Acute COPD exacerbation most likely secondary to rhinovirus viral acute bronchitis severe wheezing through - no fever/leukocytosis. CXR negative. Still very SOB and wheezy and very decreased air entry bilaterally. Continue aerosols, solumedrol, IS. Respiratory panel is positive of rhinovirus. Patient is discharged on 3 L of oxygen. Patient is ambulatory in home and in the community and requires home oxygen with portability. Patient is on triple therapy, Dulera and Incruse Ellipta. Discharged on tapering dose of prednisone, Mucinex. Follow-up with Dr. Tung Greene 2 weeks. 2. Chronic hypoxic respiratory failure - currently comfortable on 3lpm baseline 3. HTN - continue norvasc. Losartan 50 mg daily added. Prescription given for Bystolic and losartan. 4. Depression - lexapro DVT ppx: heparin 5000 units subcu every 8 hourly Discharge medication reconciliation done. Discharge follow-up instructions completed. Discharge process discussed with the patient and all questions were answered to patient's satisfaction. Total time spent, exact 35 minutes on discharge meds reconciliation, examination, review of imaging and blood test and discussion with the patient on follow-up instructions. Subjective: Seen and examined. At rest patient is 96% on room air but as soon as he starts walking his pulse ox drop on requires 3 L of oxygen. Shortness of breath much better. Patient is able to expectorate. Objective: General: Alert, Oriented x3, Cooperative HEENT: Atraumatic, PERRLA, EOMI, Normocephalic Neck: Supple, No JVD, Negative Carotid Bruits Lungs: Clear to auscultation, Air entry diminished but improved as admission, Rhonchi, shortness of breath are much improved. Hypoxia on ambulation, requires 3 L of oxygen Cardiovascular: Regular rate, Regular Rhythm, Normal S1, Normal S2, No murmurs Abdomen: Bowel Sounds Present, Soft, Non Tender, Non-Distended Extremities: No edema, Capillary Refill Less than 3 Seconds Skin: No rashes, No breakdown Musculoskeletal: No Tenderness to Palpation of Joints or Extremities, Arthritic Changes Neurological: Cranial nerves II-XII grossly intact, Deep Tendon Reflexes 2+/4 and Symmetrical, Neuro grossly intact Psych/Mental Status: Normal Affect, Appropriate - Physical Exam Vitals/I&O's: Vital Signs Temp Pulse Resp BP Pulse Ox 97.7 F L 92 22 H 165/75 H 95 04/10/19 09:10 04/10/19 09:10 04/10/19 09:10 04/10/19 09:10 04/10/19 09:10 Oxygen Flow Rate (L/min) [ 3 AMBULATION with Oxygen] Oxygen Flow Rate (L/min) 1 Oxygen Delivery Method Nasal Cannula Weight: 189 lb 12.806 oz Body Mass Index (BMI) 30.6 Intake and Output for Last 24 Hours 04/08/19 04/09/19 04/10/19 23:59 23:59 23:59 Intake Total 1200 / 1200 1150 / 1350 600 / 600 Balance 1200 / 1200 1150 / 1350 600 / 600 Microbiology Past 72 Hours 04/09/19 11:35 Mucosa - Nose Respiratory Panel (PCR) - Final Rhinovirus Current Medications Acetaminophen (Tylenol) 650 mg PO Q6H PRN PRN PRN Reason: Pain Score 1-3/Temp > 100.7 F Albuterol Sulfate (Ventolin Aerosols) 2.5 mg INHALATION Q2H PRN PRN PRN Reason: sob, wheezing Last Admin: 04/08/19 13:27 Dose: 2.5 mg Documented by: Albuterol/Ipratropium (Duoneb) 3 ml INHALATION Q4H.RT [facility] Last Admin: 04/10/19 07:09 Dose: 3 ml Documented by: Amlodipine Besylate (Norvasc) 5 mg PO DAILY [facility] Last Admin: 04/10/19 07:54 Dose: 5 mg Documented by: Azithromycin (Zithromax) 500 mg PO Q24 [facility] Last Admin: 04/09/19 07:51 Dose: 500 mg Documented by: Fluticasone Propionate (Flonase Nasal [place]) 1 spray NASAL BID [facility] Last Admin: 04/09/19 22:35 Dose: Not Given Documented by: Guaifenesin (Mucinex) 1,200 mg PO BID [facility] Last Admin: 04/09/19 22:38 Dose: 1,200 mg Documented by: Heparin Sodium (Porcine) (Heparin Na) 5,000 unit SC Q8 [facility] Last Admin: 04/10/19 05:40 Dose: 5,000 unit Documented by: Ibuprofen (Motrin) 400 mg PO Q8H PRN PRN PRN Reason: headache/mild pain Last Admin: 04/09/19 22:37 Dose: 400 mg Documented by: Losartan Potassium (Cozaar) 50 mg PO DAILY [facility] Last Admin: 04/09/19 10:31 Dose: 50 mg Documented by: Magnesium Hydroxide (Milk Of Magnesia) 30 ml PO DAILY PRN PRN PRN Reason: Constipation Methylprednisolone (Solu-Medrol) 40 mg IV Q8 [facility] Last Admin: 04/10/19 05:40 Dose: 40 mg Documented by: Nebivolol (Bystolic) 2.5 mg PO DAILY [facility] Last Admin: 04/10/19 07:54 Dose: 2.5 mg Documented by: Nutritional Formula (Lactose Free) (Ensure Clear) 120 ml PO TIDCM [facility] Pantoprazole Sodium (Protonix) 40 mg PO DAILY [facility] Last Admin: 04/09/19 07:51 Dose: 40 mg Documented by: Polyethylene Glycol (Miralax) 17 gm PO DAILY PRN PRN PRN Reason: Constipation Last Admin: 04/08/19 16:02 Dose: 17 gm Documented by: Senna/Docusate Sodium (Senokot-S, Massiel-Colace) 1 tablet PO DAILY PRN PRN PRN Reason: Constipation Sodium Chloride () 10 - 40 ml IV UD PRN PRN Reason: SALINE FLUSH Last Admin: 04/10/19 05:39 Dose: 10 ml Documented by: Discharge Activity: May Not Drive Weight Bearing Status: Weight bearing as tolerated Call your doctor if you observe: Fever of 101 or Higher, Coldness, Increased Pain, Inability to urinate, Inability to have a bowel movement, Shortness of breath, Dizziness, Fainting spells, Swelling in the ankles, Chest pain, Prolonged hiccoughing, Increased palpitations (irregular heartbeat), Uncontrolled pain Home Medications: Medications to take at Discharge Albuterol IH (ProAir) [Proair Hfa] 1 - 2 puff INHALATION Q6H PRN 10/24/17 Cholecalciferol (Vitamin D3) [Vitamin D3] 5,000 unit PO DAILY 10/24/17 Curcumin 1 tab PO DAILY 10/24/17 [place]-3 Fatty Acids/Fish Oil [Fish Oil 1,000 mg Capsule] 1 each PO BID 10/24/17 Ubidecarenone [Co Q-10] 10 mg PO DAILY 10/24/17 Albuterol Aerosols [Ventolin Aerosols] 2.5 mg INHALATION Q6H 04/07/19 Escitalopram Oxalate 5 mg PO DAILY 04/07/19 Melatonin/Pyridoxine HCl (B6) [Melatonin 3 mg Tablet] 6 mg PO QHS 04/07/19 Mometasone/Formoterol [Dulera 200 Mcg/5 Mcg Inhaler] 2 puff INHALATION BID 04/07/19 Pantoprazole Sodium [Protonix] 40 mg PO DAILY 04/07/19 Umeclidinium [place] [Incruse Ellipta] 1 puff INHALATION DAILY 04/07/19 Guaifenesin [Mucinex] 1,200 mg PO BID #14 tab 04/10/19 Losartan Potassium [Cozaar] 50 mg PO DAILY #30 tab 04/10/19 Nebivolol HCl [Bystolic] 5 mg PO DAILY #0 04/10/19 Prednisone 10 mg PO DAILY #30 tab 04/10/19 Following Prescrptions Were Given to Patient: Losartan Potassium [Cozaar] 50 mg PO DAILY #30 tab Transmission Status: Received by [facility] Guaifenesin [Mucinex] 1,200 mg PO BID #14 tab Transmission Status: Received by [facility] Prednisone 10 mg PO DAILY #30 tab Prescription Printed Primary Care Physician: Jaime Vidales MD [Primary Care Provider] - Please follow up with your Primary Care Physician in: in 2 weeks Please Follow Up With: Tung Greene MD When: in 2 weeks Medical Necessity - Tobacco Use Smoking Status: Former smoker Tobacco Use: Cigarettes Meaningful Use Info Meaningful Use Diagnoses (Choose all that apply): None applicable Code Visit Inpatient E&M: 90158 Disch Hosp
[2019-04-10] MEDS: Azithromycin 250 MG Tablet 500 MG PO (12:22)
[2019-04-10] MEDS: Pantoprazole Sodium 40 MG Tablet PO (12:22)
[2019-04-10] MEDS: guaiFENesin 1,200 MG Tablet 1200 MG PO (12:22)
[2019-04-10] MEDS: Losartan Potassium 50 MG Tablet PO (12:23)
[2019-04-10] MEDS: Fluticasone 0.05% 1 SPRAY NASAL.SRY NASAL (12:23)
== END 2019-04-10 15:40 | disposition home or self-care (01) | DRG 191 ==
PROVIDERS: Physician Assistant; Admitting Provider Internal Medicine; Family Provider Family Medicine; PCP Family Medicine; Referring Provider Internal Medicine; Visit Provider Internal Medicine
DX: J44.1 Chronic obstructive pulmonary disease with (acute) exacerbation (principal); J96.11 Chronic respiratory failure with hypoxia; J44.0 Chronic obstructive pulmonary disease with (acute) lower respiratory infection; J20.6 Acute bronchitis due to rhinovirus; Z99.81 Dependence on supplemental oxygen; I10 Essential (primary) hypertension; G25.0 Essential tremor; F32.9 Major depressive disorder, single episode, unspecified; R73.03 Prediabetes; E66.9 Obesity, unspecified; Z87.891 Personal history of nicotine dependence; Z68.30 Body mass index [BMI] 30.0-30.9, adult
CPT/HCPCS: 36415; 71046; 80048; 80053; 85025; 87633; 93970; 94640; 94667; 94668; 97162; 97166; 97530; 97802; 99251; A4216; G0463

== ENCOUNTER → 2019-04-15 08:53 | Outpatient (CLI) | payer MEDICARE, SELFPAY ==
[2019-04-07 16:37] VITALS: BMI 30.6
[2019-04-15 08:57] LABS: Bacteria 0 SEEN /hpf (None Seen); Mucous, Urine 0 SEEN /hpf (<or=2+); Red Blood Cells-Urine 0 SEEN /hpf (0-5); Squamous Epithelial Cells - UA 0 SEEN /hpf (0-5); White Blood Cells 0 SEEN /hpf (0-5)
[2019-04-15 09:50] LABS: Color, Urine Yellow (Yellow); Glucose, Dipstick Normal (Normal); Ketone-Dipstick Negative (Negative); Leukocyte Esterase-Dipstick Negative /ul (Negative); Nitrite-Dipstick Negative (Negative); Occult Blood-Urine Negative /ul (Negative); Protein-Dipstick Negative (Negative); Urine Bilirubin Dipstick Negative (Negative); Urine Clarity Clear (Clear); Urine Urobilinogen Normal (Normal)
[2019-04-15 09:55] LABS: Absolute Lymphocyte Count 2.84 X10^3/uL (0.83-4.51); Absolute Neutrophil Count 11.3 X10^3/uL (2.0-7.7); Basophil# 0.03 X10^3/uL; Basophil% 0.2 % (0-1); Eosinophil# 0.08 X10^3/uL; Eosinophils% 0.5 % (0-5); Hematocrit 44.1 % (40-54); Hemoglobin 13.8 g/dL (13.0-16.5); Lymphocyte # 2.84 X10^3/ul (4.0); Lymphocyte % 17.8 % (19-41); Mean Corp Hgb Conc 31.3 g/dL (32-36); Mean Corpuscular Hgb 29.7 pg (27.0-32.0); Mean Platelet Vol. 9.9 fl (6.2-12.0); Monocyte# 1.56 X10^3/uL; Monocyte% 9.8 % (0-10); NRBC Flagged by Analyzer 0 % (0-5); Neutrophil # 11.34 X10^3/uL (2.7-7.7); Neutrophil % 70.8 % (47-70); POSITIVE DIFFERENTIAL YES; Platelet Count 301 K/mm3 (150-450); RBC Distribution Width CV 13.2 % (11.6-14.6); RBC Distribution Width SD 46.3 fl (35.1-43.9); Red Blood Count 4.64 M/mm3 (4.6-6.2)
[2019-04-15 09:59] LABS: Differential Indicated SCAN CRITERIA MET
[2019-04-15 10:30] LABS: Hemoglobin A1c 6.3 % (4.2-6.3)
[2019-04-15 10:39] LABS: AST(SGOT) 10 U/L (15-37); Alanine Aminotransfer ALT/SGPT 41 U/L (16-61); Albumin, Serum 3.2 g/dL (3.2-5.0); Alkaline Phosphatase 57 U/L (45-117); Anion Gap 7 (5-15); BUN 23 mg/dL (7-18); Calcium,Total 9.4 mg/dL (8.5-10.1); Chloride 97 mmol/L (98-107); Creatinine, Serum 0.83 mg/dL (0.70-1.30); Globulin 3.2 g/dL (2.2-4.2); Glucose 128 mg/dL (74-106); Protein, Total 6.4 g/dL (6.4-8.2); Sodium Level 138 mmol/L (136-145); Thyroid Stim Hormone (TSH) 0.75 uIU/mL (0.358-3.74)
[2019-04-15 10:40] LABS: BUN/Creat Ratio 27.8 RATIO (10-20); EST Glomerular Filtration Rate 94 mL/min (>60); Est Glom Filt Rate - Afr Amer 114 mL/min (>60)
[2019-04-16 13:41] LABS: Pathologist Review Reviewed
== END ==
PROVIDERS: Family Provider Family Medicine; PCP Family Medicine; Visit Provider Family Medicine
DX: I10 Essential (primary) hypertension (principal); R73.02 Impaired glucose tolerance (oral)
CPT/HCPCS: 36415; 80053; 81001; 83036; 84443; 85025

== ENCOUNTER → 2019-04-17 09:00 | Outpatient (CLI) | payer MEDICARE, SELFPAY ==
[2019-04-07 16:37] VITALS: BMI 30.6
--- NOTE | 2019-04-17 09:05 | RAD_ITS ---
STUDY: AIR-CONTRAST UPPER GI SERIES AND ESOPHAGRAM. REASON FOR EXAM: Male, 83 years old. Dysphagia. FLUOROSCOPY TIME (if supplied): ( 1 minute and 10 seconds. ) minutes/seconds TECHNIQUE: The patient ingested barium. Multiple images of the esophagus, stomach and duodenum were obtained. COMPARISON: None. FINDINGS: There is evidence of a small sliding hiatal hernia with gastroesophageal reflux. The patient ingested a 12 mm tablet of barium without any difficulty. There is no evidence of mass lesion. No evidence of a obstruction. The stomach is unremarkable except for small sliding hiatal hernia. No evidence of ulceration or mass lesion. There is a 5.7 mm x 4.4 mm diverticulum in the descending portion of the duodenum. RAD/Esophagus Only IMPRESSION: Small sliding hiatal hernia with gastroesophageal reflux. 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 Electronically Signed: Brett Hillman, at 14:28 EDT , Service support ,
== END ==
PROVIDERS: Family Provider Family Medicine; PCP Family Medicine; Referring Provider Family Medicine; Visit Provider Family Medicine
DX: R13.10 Dysphagia, unspecified (principal)
CPT/HCPCS: 74220

== ENCOUNTER 2019-05-11 15:00 | Outpatient (RCR) | payer MEDICARE, SELFPAY ==
--- NOTE | 2019-04-20 14:07 | HP.PTEVAL ---
Patient's Visit Information ED MARAVILLA is a 83 year old M referred to Physical Therapy by Jaime Vidales MD with a diagnosis of IMPAIRED GAIT AND MOBLITY. Date of Evaluation: 04/20/19 Physical Therapist: Ed Worrell, PT, Cert MDT, OCS - Visit Plan Frequency: 3x /Week Duration: 3 Weeks Plan: PT INTERVENTIONS ENDURANCE PROGRAM,BLE STRENGTHENING,BALANCE PROGRAM - Subjective Findings: This 83 y/o male presents to physical therapy with impaired gait and moblity. Patient was d//c about 1 week ago from [facility] due to bronchitis for 4days. Due to hospital stay developed more weakness in legs. Patient has comorbities with COPD,partial collapsed lung thus been on 02 for abot 5 years. At rest 2 l02, when up walking on 4L02 pulsed. Patient walks with no device just poor endurance. No falls. Patient has 1 story home with no steps. Denies parathesia/tingling except left leg. Patient condition impairs ADLS',housework tasks alomg with decrease standing/walking with decrease endurance.Sleeps with bed slghtly elevated. SOCIAL: - Objective POSTURE: mild foward posture. GAIT: reciprocal pattern slow sapphire WITH 4l02. EDEMA: left leg ,lower. NEURO: Intact. BALANCE: good-. MMT: quads/hams 4-/5,hip flexion/abd 4-/5,ankle 4/5. STAIRS: one step at a time - Balance Scores Functional Gait Assessment Score: 12 % Disability: 60.0000 CATSIB Score (Max score 120 seconds): 45 - Goals Goal 1:: Independant with HEP Goal Time Frame: 4-6 Weeks Goal 2:: Patient to increase strength BLE 4/5 to improve gait and function. Goal Time Frame: 4-6 Weeks Goal 3:: Patient to improve CATSIB by 5 points or > to improve function Goal Time Frame: 4-6 Weeks Goal 4:: Patient to improve functional gait assessmnet score by 5 points > to improve gait Goal Time Frame: 4-6 Weeks Goal 5:: Patient to improve LFES score by5 points or > to improve QOL. Goal Time Frame: 4-6 Weeks - Rehabilitation Potential Physical Therapy Diagnosis: This 83 y/o male has COPD and on 4L02 with decrease gait ,endurance and balance thus impairs function along with recnt hopsital stay thus benifit from skilled PT Rehabilitation Potential: Good - Anticipated Interventions Patient/Client Instruction: Educate patient on: Condition, Plan of Care For the Purpose of:: To decrease pain, To improve muscle performance and motor function, To improve ability to perform ADL's, To increase tolerance to activity/condition/position, To improve performance and independence with ADL's, To improve ability of physical actions for home/community/work/leisure, To improve gait and locomotor functions, To increase flexibility/ROM, To improve endurance, To improve balance, To improve safety with gait, To improve ability to perform tasks related to life management Therapeutic Exercise to Include: Strength training, Endurance training, Balance training, Active ROM Comment: BLE For the Purpose of:: To improve muscle performance and motor function, To improve ability to perform ADL's, To increase tolerance to activity/condition/position, To improve ability of physical actions for home/community/work/leisure, To improve gait and locomotor functions, To improve endurance, To improve balance, To improve ability to perform tasks related to life management Thank you for the opportunity to evaluate your patient. For Medicare and Medicare HMO plans, please review the plan of care and approve it. It will need to be FAXED BACK to us at [phone] for Medicare purposes. For Medicare only, by signing this I certify the plan of care. Please let me know if there are questions or concerns regarding this plan of care. Physician Signature: Date:
--- NOTE | 2019-05-11 15:25 | HP.PTDCSUM ---
HP - PT D/C Summary It has been my pleasure to treat ED MARAVILLA under orders from Jaime Vidales MD, for the diagnosis of IMPAIRED GAIT AND MOBLITY for a total of 7 visit(s). Discharge Date: 05/11/19 Please see the following information for a summary of their discharge status. - Subjective Subjective: Plan to leaving to [facility] this Saturday. Patient conts to c/o weakness. Patient to continue to be 02 - Pain bilat legs Pain Intensity (Out of 10): 2 - Overall Improvement % Improvement: 50 - Objective Objective/Function: POSTURE: MILD FOWARD POSTURE. GAIT: RECIPROCAL PATTERN. NEURO: DENIES PARATHESIA TINGLING. MMT: QUADS4-/5,HAMS 4/5,HIP FLEXIORS 4-/5,ANKLE 4/5. BALANCE: good- - Goals Goal 1:: Independant with HEP Goal 2:: Patient to increase strength BLE 4/5 to improve gait and function. Goal Progress: Progressing Goal 3:: Patient to improve CATSIB by 5 points or > to improve function Goal Progress: Goal Met Goal 4:: Patient to improve functional gait assessmnet score by 5 points > to improve gait Goal Progress: Goal Met Goal 5:: Patient to improve LFES score by5 points or > to improve QOL. Goal Progress: Goal Met - Plan Plan: D/C PLAN TO LEAVE IN [place] THIS SATURDAY - D/C Information Discharge Comments: HEP,WOULD LIKE TO CONTINUE WITH PT IN [facility] If there are questions or concerns regarding this patient's physical therapy, please feel free to call me at [phone]. Thank you for the referral of this patient. Sincerely, Ed Worrell, PT, Cert MDT, OCS
== END 2019-05-11 19:00 | disposition home or self-care (01) ==
LOC: PT 15:00
PROVIDERS: Family Provider Family Medicine; PCP Family Medicine; Referring Provider Family Medicine; Visit Provider Family Medicine
DX: R26.89 Other abnormalities of gait and mobility (principal); R54 Age-related physical debility
CPT/HCPCS: 97110; 97162; 97530

== ENCOUNTER → 2020-03-10 12:19 | Outpatient (CLI) | payer MEDICARE, SELFPAY ==
[2020-03-10 15:42] LABS: Anion Gap 3 (5-15); BUN 14 mg/dL (7-18); BUN/Creat Ratio 18.2 RATIO (10-20); Calcium,Total 10.3 mg/dL (8.5-10.1); Chloride 104 mmol/L (98-107); Creatinine, Serum 0.77 mg/dL (0.70-1.30); EST Glomerular Filtration Rate 102 mL/min (>60); Est Glom Filt Rate - Afr Amer 124 mL/min (>60); Glucose 123 mg/dL (74-106); Potassium 4.1 mmol/L (3.5-5.1); Sodium Level 142 mmol/L (136-145)
[2020-03-10 23:06] LABS: BNP,B-Type NATRIURETIC PEPTIDE 98.3 pg/mL (0-100)
== END ==
PROVIDERS: PCP Family Medicine; Referring Provider Family Medicine; Visit Provider Family Medicine
DX: R06.02 Shortness of breath (principal)
CPT/HCPCS: 36415; 80048; 83880

== ENCOUNTER → 2020-03-11 13:56 | Outpatient (CLI) | payer MEDICARE, SELFPAY ==
--- NOTE | 2020-03-11 14:02 | ECHOD_ITS ---
Reason For Study: SOB Procedure This was a 2D Doppler, Color Flow transthoracic echocardiogram. Exam performed in department. Left Ventricle Normal LV size. The estimated ejection fraction is 55 %. No evidence for diastolic dysfunction. No regional wall motion abnormalities noted. Right Ventricle Normal RV size. Normal systolic function. Atria Normal left atrium. Normal right atrium. No doppler evidence for ASD. Mitral Valve There is no mitral valve stenosis. No mitral valve insufficiency. Tricuspid Valve There is no tricuspid stenosis. Trivial tricuspid valve insufficiency. Pulmonary artery systolic pressure is 45 mmHg. Aortic Valve Aortic sclerosis, no stenosis. There is no aortic stenosis. No aortic valve insufficiency. Pulmonic Valve There is no pulmonic valvular stenosis. No pulmonic valve insufficiency. Great Vessels Normal aortic root. Pericardium/Pleural No pericardial effusion. MMode/2D Measurements & Calculations LVIDd: 4.7 cm IVSd: 0.95 cm Ao root diam: 3.3 cm LVIDs: 3.2 cm LVPWd: 0.91 cm RVDd: 3.9 cm FS: 31.7 % LAV(MOD-bp): 58.9 ml LVAd ap4: 30.3 cm2 SV(MOD-sp4): 53.1 ml LAV(MOD-bp) Indexed: 29.9 ml/m2 EDV(MOD-sp4): 95.9 ml LAV(MOD-sp2): 62.1 ml EDV(sp4-el): 93.9 ml LAV(MOD-sp4): 54.6 ml LVAs ap4: 18.4 cm2 ESV(MOD-sp4): 42.8 ml ESV(sp4-el): 41.5 ml EF(MOD-sp4): 55.4 % EF(sp4-el): 55.9 % SV(sp4-el): 52.5 ml LA A4 area: 20.3 cm2 LA dimension(2D): 3.8 cm RA A4 area: 19.0 cm2 Time Measurements MV dec time: 0.21 sec Doppler Measurements & Calculations MV E max saleem: 92.4 cm/sec Lat Peak E' Saleem: 10.0 cm/sec Med Peak E' Saleem: 11.3 cm/sec MV A max saleem: 92.4 cm/sec E/E' lat: 9.2 E/E' med: 8.2 MV E/A: 1.0 Ao V2 max: 182.6 cm/sec LV V1 max: 113.6 cm/sec PA V2 max: 101.0 cm/sec Ao max P.4 mmHg LV V1 max P.2 mmHg TR max saleem: 295.5 cm/sec TR max P.9 mmHg Interpretation Summary The estimated ejection fraction is 55 %. No evidence for diastolic dysfunction. Trivial tricuspid valve insufficiency. Aortic sclerosis, no stenosis. Ordering Physician: Jaime Vidales Referring Physician: Jaime Vidales Performed By: Sharon Wen RDCS
== END ==
PROVIDERS: PCP Family Medicine; Referring Provider Family Medicine; Visit Provider Family Medicine
DX: R06.02 Shortness of breath (principal)
CPT/HCPCS: 93306

== ENCOUNTER → 2020-03-25 11:10 | Outpatient (CLI) | payer MEDICARE, SELFPAY ==
[2020-03-25 12:49] LABS: Absolute Neutrophil Count 5.2 X10^3/uL (2.0-7.7); Basophil# 0.06 X10^3/uL; Basophil% 0.7 % (0-1); Eosinophil# 0.16 X10^3/uL; Eosinophils% 1.8 % (0-5); Hemoglobin 10.1 g/dL (13.0-16.5); Lymphocyte % 24.1 % (19-41); Mean Corp Hgb Conc 29.7 g/dL (32-36); Mean Corpuscular Hgb 29.3 pg (27.0-32.0); Mean Corpuscular Volume 98.6 fL (80-94); Mean Platelet Vol. 9.9 fl (6.2-12.0); Monocyte# 1.14 X10^3/uL; Monocyte% 13.1 % (0-10); NRBC Flagged by Analyzer 0 % (0-5); Neutrophil # 5.22 X10^3/uL (2.7-7.7); Neutrophil % 59.8 % (47-70); Platelet Count 397 K/mm3 (150-450); RBC Distribution Width CV 13.2 % (11.6-14.6); RBC Distribution Width SD 46.8 fl (35.1-43.9); Red Blood Count 3.45 M/mm3 (4.6-6.2); White Blood Count 8.7 K/mm3 (4.4-11.0)
[2020-03-25 13:06] LABS: Hemoglobin A1c 5.9 % (3.8-5.6)
[2020-03-25 13:31] LABS: ALB/GLOB Ratio 0.9 RATIO (0.9-2.4); AST(SGOT) 14 U/L (15-37); Alanine Aminotransfer ALT/SGPT 15 U/L (16-61); Albumin, Serum 3.3 g/dL (3.2-5.0); Alkaline Phosphatase 52 U/L (45-117); Anion Gap 1 (5-15); BUN 20 mg/dL (7-18); BUN/Creat Ratio 22.2 RATIO (10-20); Calcium,Total 9.8 mg/dL (8.5-10.1); Chloride 105 mmol/L (98-107); EST Glomerular Filtration Rate 85 mL/min (>60); Est Glom Filt Rate - Afr Amer 103 mL/min (>60); Globulin 3.5 g/dL (2.2-4.2); Glucose 117 mg/dL (74-106); Potassium 3.7 mmol/L (3.5-5.1); Protein, Total 6.8 g/dL (6.4-8.2); Sodium Level 144 mmol/L (136-145); Thyroid Stim Hormone (TSH) 1.51 uIU/mL (0.358-3.74)
[2020-03-28 18:57] LABS: Vitamin B12 626 pg/mL (211-911)
[2020-03-31 00:16] LABS: Ferritin 9 ng/mL (26-388); Iron 56 ug/dL (65-175); Iron Binding Capacity,Total 424 ug/dL (250-450); PERCENT IRON SATURATION 13.2 % (15.0-55.0)
== END ==
PROVIDERS: PCP Family Medicine; Referring Provider Family Medicine; Visit Provider Family Medicine
DX: D64.9 Anemia, unspecified (principal); J44.9 Chronic obstructive pulmonary disease, unspecified; I10 Essential (primary) hypertension; R73.02 Impaired glucose tolerance (oral)
CPT/HCPCS: 36415; 80053; 82607; 82728; 82746; 83036; 83540; 83550; 84443; 85025

== ENCOUNTER → 2020-03-29 10:27 | Outpatient (CLI) | payer MEDICARE, SELFPAY ==
[2020-03-29 13:46] LABS: Ferritin 10 ng/mL (26-388); Iron 43 ug/dL (65-175); Iron Binding Capacity,Total 399 ug/dL (250-450); PERCENT IRON SATURATION 10.8 % (15.0-55.0)
[2020-03-29 14:34] LABS: Vitamin B12 547 pg/mL (211-911)
== END ==
PROVIDERS: PCP Family Medicine; Referring Provider Family Medicine; Visit Provider Family Medicine
DX: D64.9 Anemia, unspecified (principal)
CPT/HCPCS: 36415; 82607; 82728; 82746; 83540; 83550

== ENCOUNTER → 2020-05-23 14:13 | Outpatient (CLI) | payer MEDICARE, SELFPAY ==
--- NOTE | 2020-05-23 14:15 | RAD_ITS ---
STUDY: X-RAY CHEST REASON FOR EXAM: Male, 85 years old. COPD TECHNIQUE: PA and lateral views of the chest. COMPARISON: 04/07/2019 FINDINGS: There is hyperinflation of the lungs consistent with chronic obstructive lung disease (COPD). There is no demonstrated pleural abnormality. Normal size heart. Normal mediastinum and juan manuel. Normal visualized pulmonary arteries. Normal visualized aortic arch and descending thoracic aorta. Normal visualized thoracic spine. Normal visualized ribs, clavicles, and shoulders. There is no demonstrated abnormality of the visualized soft tissue structures of the upper abdomen. RAD/Chest PA and Lateral IMPRESSION: Emphysema without pneumonia or atelectasis. Electronically Signed: Nikko Terry MD at 14:44 EST Tel , Service support ,
== END ==
PROVIDERS: PCP Family Medicine; Referring Provider Internal Medicine Pulmonary Disease; Visit Provider Internal Medicine Pulmonary Disease
DX: J44.9 Chronic obstructive pulmonary disease, unspecified (principal)
CPT/HCPCS: 71046

== ENCOUNTER → 2020-05-25 16:11 | Outpatient (CLI) | payer MEDICARE, SELFPAY ==
[2020-05-25 18:09] LABS: Absolute Lymphocyte Count 3.01 X10^3/uL (0.83-4.51); Absolute Neutrophil Count 7.7 X10^3/uL (2.0-7.7); Basophil# 0.02 X10^3/uL; Basophil% 0.2 % (0-1); Eosinophil# 0.08 X10^3/uL; Eosinophils% 0.6 % (0-5); Hematocrit 32.9 % (40-54); Hemoglobin 9.7 g/dL (13.0-16.5); Lymphocyte # 3.01 X10^3/ul (4.0); Lymphocyte % 23.7 % (19-41); Mean Corp Hgb Conc 29.5 g/dL (32-36); Mean Corpuscular Hgb 28.6 pg (27.0-32.0); Mean Corpuscular Volume 97.1 fL (80-94); Mean Platelet Vol. 10.6 fl (6.2-12.0); Monocyte# 1.87 X10^3/uL; Monocyte% 14.7 % (0-10); NRBC Flagged by Analyzer 0 % (0-5); Neutrophil # 7.65 X10^3/uL (2.7-7.7); Neutrophil % 60.3 % (47-70); POSITIVE DIFFERENTIAL YES; Platelet Count 320 K/mm3 (150-450); RBC Distribution Width CV 13.8 % (11.6-14.6); RBC Distribution Width SD 49.1 fl (35.1-43.9); Red Blood Count 3.39 M/mm3 (4.6-6.2); White Blood Count 12.7 K/mm3 (4.4-11.0)
[2020-05-25 18:20] LABS: Ferritin 7 ng/mL (26-388); Iron 31 ug/dL (65-175); Iron Binding Capacity,Total 429 ug/dL (250-450)
[2020-05-25 18:23] LABS: Differential Indicated SCAN CRITERIA MET
[2020-05-25 18:53] LABS: Anisocytosis 1+; Hypochromasia 1+; Platelet Estimate ADEQUATE (ADEQ)
[2020-05-25 18:54] LABS: Reactive Lymphocyte RARE
[2020-05-26 12:08] LABS: Pathologist Review Reviewed
== END ==
PROVIDERS: PCP Family Medicine; Referring Provider Family Medicine; Visit Provider Family Medicine
DX: D50.9 Iron deficiency anemia, unspecified (principal)
CPT/HCPCS: 36415; 82728; 83540; 83550; 85025

== ENCOUNTER 2020-06-06 05:56 | Day surgery (SDC) | payer MEDICARE, SELFPAY ==
[2020-05-30 13:30] VITALS: BMI 32.3
--- NOTE | 2020-06-06 05:58 | PCM.HP.STD ---
Problem List (1) Iron deficiency anemia Status: Acute Qualifiers: History of Present Illness Date of Admission: 06/06/20 The patient is a 85 year old M is being evaluated for iron deficiency anemia. The patient was interviewed in a phone call consultation. Upon presentation to the hospital it is apparent that he has significant COPD. He has bilateral lower extremity swelling. He clearly appears to have more limitations than what could be detected over the telephone. We will have anesthesiology evaluate the patient to see if we can proceed with sedation. 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 Accompanied by: Is patient in pain?: No Allergies mussels Adverse Reaction (Verified 05/30/20 13:32) Vomiting Medications Albuterol IH (ProAir) [Proair Hfa] 1 - 2 puff INHALATION Q6H PRN 10/24/17 [History Confirmed 05/30/20] Cholecalciferol (Vitamin D3) [Vitamin D3] 5,000 unit PO DAILY 10/24/17 [History Confirmed 05/30/20] Curcumin 1 tab PO DAILY 10/24/17 [History Confirmed 05/30/20] [place]-3 Fatty Acids/Fish Oil [Fish Oil 1,000 mg Capsule] 1 ea PO BID 10/24/17 [History Confirmed 05/30/20] Ubidecarenone [Co Q-10] 10 mg PO DAILY 10/24/17 [History Confirmed 05/30/20] Albuterol Aerosols [Ventolin Aerosols] 2.5 mg INHALATION Q6H 04/07/19 [History Confirmed 05/30/20] Escitalopram Oxalate 5 mg PO DAILY 04/07/19 [History Confirmed 05/30/20] Melatonin/Pyridoxine HCl (B6) [Melatonin 3 mg Tablet] 6 mg PO QHS 04/07/19 [History Confirmed 05/30/20] Pantoprazole Sodium [Protonix] 40 mg PO DAILY 04/07/19 [History Confirmed 05/30/20] Losartan Potassium [Cozaar] 50 mg PO DAILY #30 tab 04/10/19 [Rx Confirmed 05/30/20] ascorbate calcium (vitamin C) 500 mg tablet 500 mg PO BID tab 05/30/20 [History Confirmed 05/30/20] azithromycin 250 mg tablet 250 mg PO DAILY 05/30/20 [History Confirmed 05/30/20] ferrous gluconate 240 mg (27 mg iron) tablet 240 mg PO DAILY 05/30/20 [History Confirmed 05/30/20] fexofenadine 180 mg tablet 1,200 mg PO BID tab 05/30/20 [History Confirmed 05/30/20] fluticasone fur. 100 mcg-umeclid 62.5 mcg-vilant 25 mcg inhalat.powder 1 inh INHALATION Q24H 05/30/20 [History Confirmed 05/30/20] furosemide 20 mg tablet 20 mg PO DAILY 05/30/20 [History Confirmed 05/30/20] multivitamin 1 cap PO BID cap 05/30/20 [History] nebivolol 5 mg tablet 10 mg PO DAILY tab 05/30/20 [History] oxygen-air delivery systems See Rx Instructions .ROUTE .MEDSUPPLY #1 05/30/20 [History] prednisone 20 mg tablet 20 mg PO DAILY 05/30/20 [History Confirmed 05/30/20] procyanidolic oligomers 50 mg capsule 100 mg PO DAILY cap 05/30/20 [History] roflumilast 500 mcg tablet 500 mcg PO DAILY 05/30/20 [History Confirmed 05/30/20] PFSH Medical History (Updated 05/30/20 @ 14:[address] Tung Franks MD) Iron deficiency anemia (Acute) COPD exacerbation (Acute) Depression (Chronic) Essential tremor (Chronic) COPD (chronic obstructive pulmonary disease) (Chronic) Chronic respiratory failure with hypoxia, on home oxygen therapy (Chronic) Pre-diabetes (Chronic) HTN (hypertension) (Chronic) Obesity (BMI 30.0-34.9) (Chronic) Chest pain (Acute) Iron deficiency anemia (Acute) Surgical History (Updated 05/30/20 @ 13:50 by Ranjana Ochoa) History of bilateral inguinal herniorrhaphies (Acute) History of cholecystectomy (Acute) History of tonsillectomy (Acute) Family History (Updated 05/30/20 @ 13:50 by Ranjana Ochoa) Mother CVA (cerebral vascular accident) Social History (Updated 05/30/20 @ 14:[address] Tung Franks MD) Smoking Status: Former smoker HPI HPI Chief Complaint: Consult for EGD/T-Qylwp-ouks deficiency anemia Details: Patient was informed that this visit will be billed to patient. This visit was conducted during COV- pandemic. ED MARAVILLA, is a 85 M who was at home on the telephone while I was in the office on the telephone. He is referred to me by Dr Jaime Vidales because of iron deficiency anemia and a written copy of my surgical consult recommendations will return to Dr. Barlow. As of May 25, 2020 the patient a white count of 12.7 with a hemoglobin 9.7 medical 32.9 platelet count 3 and 20,000. By report he has been stool Hemoccult negative. He has been on 3 weeks of iron therapy. As of March 29, 2020 his TIBC was 399 with an iron level 43 and an iron saturation of 10.8 with a ferritin level of 10. Folates were 39.9. As of May 25, 2020 TIBC was 429 and his iron level was 31 and his ferritin level was 7. He does take fish oil twice a day. He has not noticed any bright red blood per rectum or melena. As of September 02, 2008 with his last colonoscopy done by Dr. Gucci Lai which on pathology showed a distal sigmoid colon hyperplastic polyp. The patient has a history of long-term tobacco use. He has COPD. He is on 2 L/min of oxygen 24 hours daily. He is complaining of lower extremity swelling. He is having that treated with furosemide. As of May 23, 2020 chest x-ray showed emphysema without pneumonia or atelectasis. His central supply technician is Dr. Tung Greene He has had previous abdominal surgery cholecystectomy about 1998. They reported that that was done by Dr. Fredi Parekh. Apparently it was quite challenging taking 2-1/2 hours. The patient has a remote history of peptic ulcer disease and he is on chronic generic pantoprazole. He denies any current GI upset ROS Const Constitutional: Positive for fatigue and weakness; no anorexia, body ache, chills, excessive sweating, fever(s), frequent falls, headache(s), decreased energy, malaise, night sweats, snoring, weight change, sleep problems, abnormal sleep pattern, change in appetite or other Eyes Eyes: No blurry vision, change in vision, double vision, discharge, dry eyes, bulging eyes, floaters, visual disturbances, eye pain, light sensitivity, spots in vision, tunnel vision or other ENT ENT: No abnormal hearing, ear pain, ear discharge, ear pressure, hearing loss, tinnitus, dizziness/vertigo, balance problems, nosebleed/epistaxis, nasal congestion, nasal obstruction, nose pain, sinus pressure, sinus pain, nasal discharge, post nasal drip, headache(s), facial pain, dental pain, dry mouth, difficulty swallowing, bad breath, hoarseness, lip swelling, mouth lesions, mouth pain, neck pain, sore throat, tongue swelling, throat swelling or other Resp Respiratory: Positive for cough, excessive phlegm production, shortness of breath and other (copd); no change in phlegm color, chest congestion, hemoptysis, pain on inspiration, pain with cough, snoring, stridor or wheezing Cardio Cardiology: Positive for shortness of breath, dyspnea on exertion and generalized swelling; no chest pain at rest, chest pain with exertion, leg pain with exertion, excessive sweating, irregular heart rhythm, lightheadedness, orthopnea, radiating jaw, neck or arm pain, fast heart rate, slow heart rate, palpitations or other (hypertension) Gastro GI: No abdominal pain, belching, bloating, change in bowel habits, change in stool character, coffee ground emesis, constipation, cramping, diarrhea, heartburn, difficulty swallowing, feeling full early, excessive flatus, incontinent of stools, Vomiting blood/hematemesis, blood in stool, loose stools, Black,tarry stools, nausea/dyspepsia, pain with swallowing, vomiting or other Genitourinary Male: No difficulty urinating, burning urination, painful urination, urinary incontinence, urinary frequency, urinary urgency, urinary hesitancy, urinary retention, blood in urine, Frequent nighttime urination/ nocturia, post void dribbling, suprapubic fullness, side pain, sexual problems, genital lesions, genital itching, erectile dysfunction, penile discharge, difficulty with ejaculations, blood in semen, scrotal swelling, testicle lump, testicle pain or other (enlarged prostate) Musc Musculoskeletal: Positive for joint pain; no abnormal walking, back pain, deformity, joint swelling, limited range of motion, loss of height, muscle cramps, muscle weakness, decreased muscle mass, body aches, neck pain, numbness, radiating pain into limb, stiffness, tingling or other Skin Skin: No acne, hair loss, change in hair, nail changes, boil, change in skin color, dry skin, redness, excessive hair growth, yellowing of the skin, lesions, itching, rash, skin pain, skin ulcer, sores, skin swelling or wounds Neuro Neurology: Positive for weakness; no abnormal walking, abnormal hearing, abnormal movements, abnormal speech, behavioral changes, confusion, unsteady gait/balance, dizziness, frequent falls, headache(s), lack of coordination, loss of vision, memory loss, numbness, tingling, visual disturbances, restless legs, fainting, tremor(s) or other Psych Psychiatric: No abnormal sleep pattern, No lack of enjoyment, Positive for anxiety, No behavioral changes, No change in appetite, No confusion, No depression, No difficulty concentrating, No hopelessness, No irritability, No memory loss, No mood swings, No panic attacks, No paranoia, No Thoughts of harming yourself/Others, No hallucinations, No other Endo Endocrine: Positive for fatigue; no change in body appearance, cold intolerance, excessive sweating, flushing, heat intolerance, increased thirst/drinking, increased hunger, increased urination or other Aller/Imm Allergy/Immunologic: No food intolerance, itchy eyes, lip swelling, seasonal allergy symptoms, throat swelling, tongue swelling, hives, wheezing or other Lester/Lymp Hematologic/Lymphatic: No easy bleeding, easy bruising, enlarged lymph nodes or other Exam Const Other: The patient over the phone appears alert and aware of his situation in place. Some questions were asked by his as well Musc Musculoskeletal: No muscle weakness Details: Details:: Exam was limited due to phone visit with no video. Quality Reporting Medication Reconciliation ([facility]) albuterol sulfate 90 mcg/actuation 1 - 2 puffs inhalation Q6H PRN albuterol sulfate 2.5 mg inhalation Q6H ascorbate calcium (vitamin C) 500 mg PO BID azithromycin 250 mg PO DAILY cholecalciferol (vitamin D3) 5,000 units PO DAILY coenzyme Q10 10 mg PO DAILY [Curcumin 1 tab PO DAILY] escitalopram oxalate 5 mg PO DAILY ferrous gluconate (Fergon) 240 mg PO DAILY fexofenadine 1,200 mg PO BID qfjqothyadc-pcyiygzoj-halmaahd 100-62.5-25 mcg (Trelegy Ellipta) 1 inh inhalation Q24H furosemide (Lasix) 20 mg PO DAILY losartan 50 mg PO DAILY melatonin-pyridoxine HCl (B6) 3-10 mg 6 mg PO QHS multivitamin 1 cap PO BID nebivolol 10 mg PO DAILY omega-3 fatty acids-fish oil 340-1,000 mg 1 ea PO BID oxygen-air delivery systems As directed pantoprazole 40 mg PO DAILY prednisone 20 mg PO DAILY procyanidolic oligomers 50 mg capsule 100 mg PO DAILY roflumilast (Daliresp) 500 mcg PO DAILY Tobacco Screening ([facility] 138) Smoking Status: Former smoker Assessment & Plan Problems 1. Iron deficiency anemia, unspecified iron deficiency anemia type D50.9 Plan With the patient's chronic COPD continued dropping hemoglobin hematocrit levels will portend a poor outcome for him. I recommend to him a esophagogastroduodenoscopy with possible biopsy and colonoscopy possible biopsy or polypectomy as indicated. He is well aware of technique, benefit, risk and alternatives. He is aware of the increased risk because of his COPD. I have asked him to immediately stop his foot fish oil therapy. We will utilize a MiraLAX bowel prep. We will utilize monitored anesthesia care because of his increased risk. The patient and have had an opportunity to ask and have questions answered. We will schedule and try to expedite his care. Copy: Dr Jaime Franks M.D., F.A.C.S. Coding Level of Care Code Level 2 Telephone Diagnoses Iron deficiency anemia, unspecified iron deficiency anemia type D50.9 ??Iron deficiency anemia type: unspecified iron deficiency Past Medical History Past Medical History (Chronic Problems): Chronic Problems (Last Updated 05/30/20 @ 13:48 by Ranjana Ochoa) Depression (Chronic) Essential tremor (Chronic) COPD (chronic obstructive pulmonary disease) (Chronic) Chronic respiratory failure with hypoxia, on home oxygen therapy (Chronic) Pre-diabetes (Chronic) HTN (hypertension) (Chronic) Obesity (BMI 30.0-34.9) (Chronic) Medical History: Medical History (Last Updated 05/30/20 @ 13:48 by Ranjana Ochoa) Iron deficiency anemia (Acute) D50.9 COPD exacerbation (Acute) J44.1 Depression (Chronic) F32.9 Essential tremor (Chronic) G25.0 COPD (chronic obstructive pulmonary disease) (Chronic) J44.9 Chronic respiratory failure with hypoxia, on home oxygen therapy (Chronic) J96.11, Z99.81 Pre-diabetes (Chronic) R73.03 HTN (hypertension) (Chronic) I10 Obesity (BMI 30.0-34.9) (Chronic) E66.9 Chest pain (Acute) R07.9 Iron deficiency anemia D50.9 Allergies mussels Adverse Reaction (Verified 06/02/20 08:18) Vomiting Home Medications: Ambulatory Orders Medication Instructions Recorded Albuterol IH (ProAir) [Proair Hfa] 1 - 2 puff INHALATION Q6H PRN 10/24/17 Cholecalciferol (Vitamin D3) 5,000 unit PO DAILY 10/24/17 [Vitamin D3] Curcumin 1 tab PO DAILY 10/24/17 [place]-3 Fatty Acids/Fish Oil [Fish 1 ea PO BID 10/24/17 Oil 1,000 mg Capsule] Ubidecarenone [Co Q-10] 10 mg PO DAILY 10/24/17 Albuterol Aerosols [Ventolin 2.5 mg INHALATION Q6H 04/07/19 Aerosols] Escitalopram Oxalate 5 mg PO DAILY 04/07/19 Melatonin/Pyridoxine HCl (B6) 6 mg PO QHS 04/07/19 [Melatonin 3 mg Tablet] Pantoprazole Sodium [Protonix] 40 mg PO DAILY 04/07/19 Losartan Potassium [Cozaar] 50 mg PO DAILY #30 tab 04/10/19 azithromycin 250 mg tablet 250 mg PO DAILY 05/30/20 ferrous gluconate 240 mg (27 mg 240 mg PO DAILY 05/30/20 iron) tablet furosemide 20 mg tablet 20 mg PO DAILY 05/30/20 multivitamin 1 cap PO BID cap 05/30/20 oxygen-air delivery systems See Rx Instructions .ROUTE 05/30/20 .MEDSUPPLY #1 procyanidolic oligomers 50 mg 100 mg PO DAILY cap 05/30/20 capsule Betasitosterol 320 mg PO DAILY 06/02/20 Fluticasone/Umeclidin/Vilanter 1 ea IH DAILY 06/02/20 [Trelegy Ellipta 100-62.5-25] Guaifenesin [Mucinex] 1,200 mg PO BID 06/02/20 Nebivolol HCl [Bystolic] 10 mg PO DAILY 06/02/20 Roflumilast [Daliresp] 500 mcg PO DAILY 06/02/20 Surgical History: Surgical History (Last Updated 05/30/20 @ 13:50 by Ranjana Ochoa) History of bilateral inguinal herniorrhaphies Z98.890, Z87.19 History of cholecystectomy Z90.49 History of tonsillectomy Z90.89 Surgical History: cholecystectomy, herniorrhaphy, tonsillectomy, - - Tonsillectomy, cholecystectomy, bilateral inguinal hernia repair. Psychiatric History: No pertinent psych hx Smoking Status: Former smoker Tobacco Use: Non-smoker - *Family History Maternal Family History: Family History (Last Updated 05/30/20 @ 13:50 by Ranjana Ochoa) Mother CVA (cerebral vascular accident) History Items: - Paternal Family History: Family History (Last Updated 05/30/20 @ 13:50 by Ranjana Ochoa) Mother CVA (cerebral vascular accident) History Items: - Sibling Family History: Family History (Last Updated 05/30/20 @ 13:50 by Ranjana Ochoa) Mother CVA (cerebral vascular accident) History Items: - VTE Information - Inpt Only VTE Present on Admission: No Patient Problems: Active and Suspected Problems (Last Updated 05/30/20 @ 13:48 by Ranjana Ochoa) Iron deficiency anemia (Acute) - Physical Exam Vitals/I&O's: Body Mass Index (BMI) 32.3 General: Alert, - - Patient is on nasal prong oxygen and dyspneic at rest Oral: Moist Mucosa Lungs: - - Increased anterior posterior diameter of the chest. Poor respiratory excursion. Very difficult to hear breath sounds Cardiovascular: Regular rate, Regular Rhythm Abdomen: Soft, Non Tender, - - Obese Extremities: No Calf Tenderness, - - Lower extremity swelling noted Psych/Mental Status: Normal Affect Microbiology Past 72 Hours 06/03/20 12:15 Interface Orders SARS-CoV-2 Antigen (Rapid) - Final Assessment/Plan All Active Problems (Last Updated 05/30/20 @ 13:48 by Ranjana Ochoa) Iron deficiency anemia (Acute) COPD exacerbation (Acute) Chest pain (Acute) Compromised 85-year-old gentleman. On clinical evaluation now it is apparently that his COPD is quite limiting. We will have anesthesia evaluate to see if we could proceed with monitored anesthesia care. Dr. Wesley has evaluated the patient and believes that we can carefully proceed. The patient and his are acutely aware of the risks, benefits, complications, alternatives. The is particularly aware that the patient has severe COPD combined with iron deficient anemia making oxygen transportation to his cells limited. I believe there is indication to proceed with investigation for potential source of GI blood loss in hopes of evaluating diagnosing and or treating this potential complicating feature. Tung Franks M.D., F.A.C.S.
[2020-06-06 06:16] VITALS: BP 179/81; PULSE 73; RESP 24; TEMP 36.9; BMI 32.7
--- NOTE | 2020-06-06 06:30 | EGD_PTH ---
PATIENT: ED MARAVILLA LOC: EN U#:[id number] AGE/SX: 85/M ROOM: RE06/06/[address]: Dr. Tung Franks MD : 1935 BED: DIS: 06/06/2020 SPEC #: [id number] RECD: 06/06/20 10:25 STATUS: VANESAS JAIMEE #: [id number] ASIA: 06/06/20 06:[address]: Tung Franks DEPT: SURGICAL PATHOLOGY RECD BY: Madisyn Omer ENTERED: 06/06/20 10:56 SP TYPE: EGD BIOPSY OT DR: Dr. Jaime Vidales MD Tissues: A - Gastric mucous membrane B - Esophagus, NOS C - Cecum, NOS D - Descending colon E - Rectum, NOS Procedures: Surgery Specimen Level IV HEADER OPERATION: Colonoscopy, EGD (MAC) PRE-OP DIAGNOSIS: Iron deficiency anemia TISSUE SUBMITTED: A - Antrum biopsy for histo and H. pylori, B - Distal esophagus biopsy, C - Cecal polyp biopsy, D - Descending polyp biopsy, E - Rectal polyps (3) biopsy (x2) snare (X1) MICROSCOPIC DIAGNOSIS A. Antrum, biopsy: Mild gastritis. See microscopic description and comment. B. Distal esophagus, biopsy: A fragment of squamous epithelium, no pathologic diagnosis. C. Cecal polyp, biopsy: Tubular adenoma. D. Descending colon polyp, biopsy: Tubular adenoma. E. Rectal polyps, biopsy x2 and snare x1: Fragments of tubular adenoma. Fragments of hyperplastic polyp. SJ:salvador 06/07/20 COMMENT A. The results of immunohistochemistry for Helicobacter pylori will be reported separately ([id number]). MICROSCOPIC DESCRIPTION Slides are reviewed. A. The specimen shows fragments of gastric mucosa with chronic inflammatory cell infiltrates in the lamina propria consisting of lymphocytes and plasma cells, consistent with mild chronic gastritis. GROSS DESCRIPTION A - Received in fixative is one container labeled with the patient's name and designated antrum biopsy. The specimen consists of one irregular fragment of light lee soft tissue that measures 0.5 x 0.3 x 0.1 cm. The specimen is totally submitted in one cassette. B - Received in fixative is one container labeled with the patient's name and designated distal esophagus biopsy. The specimen consists of one irregular fragment of light lee soft tissue that measures 0.4 x 0.3 x 0.1 cm. The specimen is totally submitted in one cassette. C - Received in fixative is one container labeled with the patient's name and designated cecal polyp biopsy. The specimen consists of multiple irregular fragments of light lee soft tissue that in aggregate measure 0.7 x 0.2 x 0.1 cm. The specimen is totally submitted in one cassette. D - Received in fixative is one container labeled with the patient's name and designated descending polyp biopsy. The specimen consists of two irregular fragments of light lee soft tissue that in aggregate measure 0.5 x 0.3 x 0.1 cm. The specimen is totally submitted in one cassette. E - Received in fixative is one container labeled with the patient's name and designated rectal polyps. The specimen consists of multiple irregular fragments of light lee soft tissue that in aggregate measure 1.5 x 0.4 x 0.1 cm. The specimen is totally submitted in one cassette. / SJ:rg 06/06/20 TC:1 CPT: 29052 x5
--- NOTE | 2020-06-06 06:30 | IMM_PTH ---
PATIENT: ED MARAVILLA LOC: [facility] U#:[id number] AGE/SX: 85/M ROOM: RE06/06/[address]: Dr. Tung Franks MD : 1935 BED: DIS: 06/06/2020 SPEC #: [id number] RECD: 06/06/20 12:56 STATUS: VANESSA REQ #: [id number] ASIA: 06/06/20 06:[address]: Tung Franks DEPT: IMMUNOHISTOCHEMISTRY RECD BY: Nicol Oconnor ENTERED: 06/06/20 12:56 SP TYPE: IMMUNO OTHR DR: Dr. Jaime Vidales MD Tissues: A - Stomach, NOS Procedures: H Pylori (initial) PHYSICIAN & INSTITUTION [place] [address] SPECIMEN INFORMATION: Tissue Source: A - Antrum biopsy Clinical Info: Iron deficiency anemia Specimen Number: [id number] CPT code: 15918 METHODOLOGY: Deparaffinized sections of prefer/formalin-fixed tissue or PAP/DQ stained slides are incubated with monoclonal/polyclonal antibodies/oligonucleotide probes. Localization is made via biotin free immunoperoxidase method. Appropriate controls are performed and reacted as expected. Results on target cell population are indicated in the following table: RESULTS: ANTIBODY / CLONE RESULT Block A H Pylori (polyclonal) negative These tests were developed and their performance characteristics determined by [facility]. They may not have been cleared or approved by the U.S. Food and Drug Administration. The FDA has determined that such clearance or approval is not necessary. INTERPRETATION: A. Antrum, biopsy: Negative for Helicobacter pylori organisms. SJ:salvador 06/07/20
[2020-06-06] MEDS: Lactated Ringers 1,000 ML 100 ML IV (06:32)
[2020-06-06 07:12] VITALS: BP 143/51; BP 179/81; PULSE 76; RESP 16; TEMP 36.3; O2SAT 100
--- NOTE | 2020-06-06 07:14 | OP.EGD_ITS ---
Patient Name: Alexis Kerr Procedure Date: 06/06/2020 6:20 AM Date of : 1935 Age: 85 Procedure: Upper GI endoscopy Indications: Iron deficiency anemia Providers: Tung Franks MD Referring MD: Jaime Vidales Medicines: See the Anesthesia note for documentation of the administered medications Complications: No immediate complications. Procedure: Pre-Anesthesia Assessment: - Prior to the procedure, a History and Physical was performed, and patient medications and allergies were reviewed. The patient's tolerance of previous anesthesia was also reviewed. The risks and benefits of the procedure and the sedation options and risks were discussed with the patient. All questions were answered, and informed consent was obtained. Prior Anticoagulants: The patient has taken no previous anticoagulant or antiplatelet agents. ASA Grade Assessment: III - A patient with severe systemic disease. After reviewing the risks and benefits, the patient was deemed in satisfactory condition to undergo the procedure. After obtaining informed consent, the endoscope was passed under direct vision. Throughout the procedure, the patient's blood pressure, pulse, and oxygen saturations were monitored continuously. The Endoscope was introduced through the mouth, and advanced to the second part of duodenum. The upper GI endoscopy was accomplished without difficulty. The patient tolerated the procedure well. Scope In: 6:45:24 AM Scope Out: 6:48:31 AM Total Procedure Duration Time 0 hours 3 minutes 7 seconds Findings: LA Grade A (one or more mucosal breaks less than 5 mm, not extending between tops of 2 mucosal folds) esophagitis with no bleeding was found 37 cm from the incisors. Biopsies were taken with a cold forceps for histology. A medium-sized hiatal hernia was present. Diffuse mild inflammation was found in the gastric antrum. Biopsies were taken with a cold forceps for histology. The examined duodenum was normal. Impression: - LA Grade A reflux esophagitis. Biopsied. - Medium-sized hiatal hernia. - Chronic gastritis. Biopsied. - Normal examined duodenum. Recommendation: - Discharge patient to home. - Resume previous diet. - Continue present medications. - Await pathology results. - Telephone my office for pathology results in 1 week. No findings to suggest GI blood loss Procedure Code(s): --- Professional --- 65069, Esophagogastroduodenoscopy, flexible, transoral; with biopsy, single or multiple Diagnosis Code(s): --- Professional --- K21.0, Gastro-esophageal reflux disease with esophagitis K44.9, Diaphragmatic hernia without obstruction or gangrene K29.50, Unspecified chronic gastritis without bleeding D50.9, Iron deficiency anemia, unspecified CPT copyright 2017 [employer]. All rights reserved. The codes documented in this report are preliminary and upon pillowcase cutter review may be revised to meet current compliance requirements. Tung Franks MD 06/06/2020 7:14:36 AM This report has been signed electronically. Number of Addenda: 0 Note Initiated On: 06/06/2020 6:20 AM
--- NOTE | 2020-06-06 07:14 | OP.CCLET_ITS ---
06/06/2020 Jaime Vidales [address] [place] [address] Re : Upper GI endoscopy procedure for Alexis Kerr Dear Dr. Vidales This procedure was performed on Saturday, June 06, 2020. My impressions and recommendations are as follows: Impressions : - LA Grade A reflux esophagitis. Biopsied. - Medium-sized hiatal hernia. - Chronic gastritis. Biopsied. - Normal examined duodenum. Recommendations : - Discharge patient to home. - Resume previous diet. - Continue present medications. - Await pathology results. - Telephone my office for pathology results in 1 week. No findings to suggest GI blood loss My findings are described in the full procedure note, which is enclosed. If I can be of further assistance, please feel free to contact me at Doctor phone number(s): Work: . Sincerely, Tung Franks MD 06/06/2020 7:14:36 AM This report has been signed electronically.
[2020-06-06 07:17] VITALS: BP 133/56; BP 179/81; PULSE 83; RESP 16; O2SAT 99
--- NOTE | 2020-06-06 07:20 | OP.COLON_ITS ---
Patient Name: Alexis Kerr Procedure Date: 06/06/2020 6:48 AM Date of : 1935 Age: 85 Procedure: Colonoscopy Indications: Iron deficiency anemia Providers: Tung Franks MD Referring MD: Jaime Vidales Medicines: See the Anesthesia note for documentation of the administered medications Patient Profile: Last Colonoscopy: date unknown. Complications: No immediate complications. Procedure: Pre-Anesthesia Assessment: - Prior to the procedure, a History and Physical was performed, and patient medications and allergies were reviewed. The patient's tolerance of previous anesthesia was also reviewed. The risks and benefits of the procedure and the sedation options and risks were discussed with the patient. All questions were answered, and informed consent was obtained. Prior Anticoagulants: The patient has taken no previous anticoagulant or antiplatelet agents. ASA Grade Assessment: III - A patient with severe systemic disease. After reviewing the risks and benefits, the patient was deemed in satisfactory condition to undergo the procedure. After I obtained informed consent, the scope was passed under direct vision. Throughout the procedure, the patient's blood pressure, pulse, and oxygen saturations were monitored continuously. The adult colonoscope was introduced through the anus and advanced to the cecum, identified by appendiceal orifice and ileocecal valve. The colonoscopy was somewhat difficult due to a tortuous colon. Successful completion of the procedure was aided by applying abdominal pressure. The patient tolerated the procedure well. The quality of the bowel preparation was adequate to identify polyps. The ileocecal valve and the appendiceal orifice were photographed. Scope In: 6:50:34 AM Scope Withdrawal Time 0 hours 10 minutes 18 seconds Scope Out: 7:09:17 AM Total Procedure Duration Time 0 hours 18 minutes 43 seconds Findings: Lax anal tone A 3 mm polyp was found in the cecum. The polyp was sessile. The polyp was removed with a cold biopsy forceps. Resection and retrieval were complete. A 4 mm polyp was found in the descending colon. The polyp was sessile. The polyp was removed with a cold biopsy forceps. Resection and retrieval were complete. A 6 mm polyp was found in the rectum. The polyp was sessile. The polyp was removed with a hot snare. Resection and retrieval were complete. Two sessile polyps were found in the rectum. The polyps were small in size. These polyps were removed with a cold biopsy forceps. Resection and retrieval were complete. Hemorrhoids were found on perianal exam. Massiel-anal escoriation Impression: - One 3 mm polyp in the cecum, removed with a cold biopsy forceps. Resected and retrieved. - One 4 mm polyp in the descending colon, removed with a cold biopsy forceps. Resected and retrieved. - One 6 mm polyp in the rectum, removed with a hot snare. Resected and retrieved. - Two small polyps in the rectum, removed with a cold biopsy forceps. Resected and retrieved. - Hemorrhoids found on perianal exam. Recommendation: - Discharge patient to home. - Resume previous diet. - Continue present medications. - Repeat colonoscopy is not recommended due to current age (66 years or older) for screening purposes. - Telephone my office for pathology results in 1 week. \Triple paste for anal escoriation No signs for GI blood loss. Recommend medical treatment/consider iron infusion Procedure Code(s): --- Professional --- 92520, Colonoscopy, flexible; with removal of tumor(s), polyp(s), or other lesion(s) by snare technique 49741, 59, Colonoscopy, flexible; with biopsy, single or multiple Diagnosis Code(s): --- Professional --- D12.0, Benign neoplasm of cecum D12.4, Benign neoplasm of descending colon K62.1, Rectal polyp K64.9, Unspecified hemorrhoids D50.9, Iron deficiency anemia, unspecified CPT copyright 2017 [employer]. All rights reserved. The codes documented in this report are preliminary and upon gallery or museum attendant review may be revised to meet current compliance requirements. Tung Franks MD 06/06/2020 7:19:32 AM This report has been signed electronically. Number of Addenda: 0 Note Initiated On: 06/06/2020 6:48 AM
--- NOTE | 2020-06-06 07:20 | OP.CCLET_ITS ---
06/06/2020 Jaime Vidales [address] [place] [address] Re : Colonoscopy procedure for Alexis Kerr Dear Dr. Vidales This procedure was performed on Saturday, June 06, 2020. My impressions and recommendations are as follows: Impressions : - One 3 mm polyp in the cecum, removed with a cold biopsy forceps. Resected and retrieved. - One 4 mm polyp in the descending colon, removed with a cold biopsy forceps. Resected and retrieved. - One 6 mm polyp in the rectum, removed with a hot snare. Resected and retrieved. - Two small polyps in the rectum, removed with a cold biopsy forceps. Resected and retrieved. - Hemorrhoids found on perianal exam. Recommendations : - Discharge patient to home. - Resume previous diet. - Continue present medications. - Repeat colonoscopy is not recommended due to current age (66 years or older) for screening purposes. - Telephone my office for pathology results in 1 week. paste for anal escoriation No signs for GI blood loss. Recommend medical treatment/consider iron infusion My findings are described in the full procedure note, which is enclosed. If I can be of further assistance, please feel free to contact me at Doctor phone number(s): Work: . Sincerely, Tung Franks MD 06/06/2020 7:19:32 AM This report has been signed electronically.
[2020-06-06 07:22] VITALS: BP 110/99; BP 179/81; PULSE 78; RESP 16; O2SAT 100
[2020-06-06 07:27] VITALS: BP 113/57; BP 179/81; PULSE 75; RESP 16; TEMP 37.2; O2SAT 100
[2020-06-06 07:30] VITALS: BP 179/81
== END 2020-06-06 08:25 | disposition home or self-care (01) ==
LOC: EN 05:56 → AC 05:57
PROVIDERS: PCP Family Medicine; Referring Provider Family Medicine; Visit Provider Surgery
PROC: 0DJD8ZZ Inspection of Lower Intestinal Tract, Via Natural or Artificial Opening Endoscopic (ICD-10-PCS; CPT 45378; principal; 2020-06-06 06:25)
DX: K21.00 Gastro-esophageal reflux disease with esophagitis, without bleeding (principal); K29.50 Unspecified chronic gastritis without bleeding; K44.9 Diaphragmatic hernia without obstruction or gangrene; D12.0 Benign neoplasm of cecum; D12.4 Benign neoplasm of descending colon; K62.1 Rectal polyp; K64.9 Unspecified hemorrhoids; D50.9 Iron deficiency anemia, unspecified; I10 Essential (primary) hypertension; I27.20 Pulmonary hypertension, unspecified; J43.9 Emphysema, unspecified; J96.11 Chronic respiratory failure with hypoxia; F32.9 Major depressive disorder, single episode, unspecified; E66.9 Obesity, unspecified; Z90.49 Acquired absence of other specified parts of digestive tract; Z99.81 Dependence on supplemental oxygen; Z79.899 Other long term (current) drug therapy; Z87.891 Personal history of nicotine dependence; Z20.828 Contact with and (suspected) exposure to other viral communicable diseases
CPT/HCPCS: 43239; 45380; 45385; 87426; 88305; 88342; C9803; J2405

== ENCOUNTER → 2020-08-18 15:30 | Outpatient (CLI) | payer MEDICARE, SELFPAY ==
[2020-08-18 17:54] LABS: ALB/GLOB Ratio 1.2 RATIO (0.9-2.4); AST(SGOT) 15 U/L (15-37); Alanine Aminotransfer ALT/SGPT 20 U/L (16-61); Albumin, Serum 3.8 g/dL (3.2-5.0); Alkaline Phosphatase 61 U/L (45-117); Anion Gap 4 (5-15); BUN 24 mg/dL (7-18); BUN/Creat Ratio 31.5 RATIO (10-20); Calcium,Total 10.6 mg/dL (8.5-10.1); Chloride 102 mmol/L (98-107); Creatinine, Serum 0.76 mg/dL (0.70-1.30); EST Glomerular Filtration Rate 104 mL/min (>60); Est Glom Filt Rate - Afr Amer 125 mL/min (>60); Globulin 3.2 g/dL (2.2-4.2); Glucose 129 mg/dL (74-106); Potassium 4.5 mmol/L (3.5-5.1); Sodium Level 144 mmol/L (136-145)
== END ==
PROVIDERS: PCP Family Medicine; Referring Provider Family Medicine; Visit Provider Family Medicine
DX: I10 Essential (primary) hypertension (principal)
CPT/HCPCS: 36415; 80053

== ENCOUNTER → 2020-09-21 14:18 | Outpatient (CLI) | payer MEDICARE, SELFPAY ==
[2020-09-21 17:48] LABS: Absolute Lymphocyte Count 1.97 X10^3/uL (0.83-4.51); Basophil# 0.03 X10^3/uL; Basophil% 0.4 % (0-1); Eosinophil# 0.14 X10^3/uL; Eosinophils% 1.8 % (0-5); Hematocrit 39.3 % (40-54); Hemoglobin 11.6 g/dL (13.0-16.5); Lymphocyte # 1.97 X10^3/ul (4.0); Mean Corp Hgb Conc 29.5 g/dL (32-36); Mean Corpuscular Hgb 30.4 pg (27.0-32.0); Mean Corpuscular Volume 103.1 fL (80-94); Mean Platelet Vol. 10.6 fl (6.2-12.0); Monocyte# 0.76 X10^3/uL; Monocyte% 9.6 % (0-10); NRBC Flagged by Analyzer 0 % (0-5); Neutrophil # 4.97 X10^3/uL (2.7-7.7); Neutrophil % 62.9 % (47-70); Platelet Count 243 K/mm3 (150-450); RBC Distribution Width CV 13.2 % (11.6-14.6); Red Blood Count 3.81 M/mm3 (4.6-6.2); White Blood Count 7.9 K/mm3 (4.4-11.0)
[2020-09-21 18:12] LABS: Vitamin D,25 Hydroxy 75.1 ng/mL
[2020-09-21 18:19] LABS: AST(SGOT) 14 U/L (15-37); Alanine Aminotransfer ALT/SGPT 21 U/L (16-61); Albumin, Serum 3.5 g/dL (3.2-5.0); Alkaline Phosphatase 64 U/L (45-117); Anion Gap 2 (5-15); BUN 32 mg/dL (7-18); BUN/Creat Ratio 35.6 RATIO (10-20); Calcium,Total 10.5 mg/dL (8.5-10.1); Chloride 102 mmol/L (98-107); Cholesterol 179 mg/dL (200); EST Glomerular Filtration Rate 86 mL/min (>60); Est Glom Filt Rate - Afr Amer 104 mL/min (>60); Globulin 3.6 g/dL (2.2-4.2); Glucose 183 mg/dL (74-106); High Density Lipoprotein 85 mg/dL; Phosphorus 2.7 mg/dL (2.5-4.9); Potassium 4.1 mmol/L (3.5-5.1); Protein, Total 7.1 g/dL (6.4-8.2); Sodium Level 143 mmol/L (136-145); Triglycerides 81 mg/dL; Very Low Density Lipoprotein 16 mg/dL (5-40)
== END ==
PROVIDERS: PCP Family Medicine; Referring Provider Family Medicine; Visit Provider Family Medicine
DX: I10 Essential (primary) hypertension (principal); E83.52 Hypercalcemia
CPT/HCPCS: 36415; 80053; 80061; 82306; 84100; 84443; 85025

== ENCOUNTER 2020-11-10 15:59 | Inpatient (IN) | payer MEDICARE, SELFPAY ==
[2020-11-10] VITALS (21 sets, daily range): BP systolic 126–201; BP diastolic 64–122; PULSE 95–118; RESP 14–32; TEMP 36.2–37.1; O2SAT 69–100; BMI 29.7; BMI 30.9
--- NOTE | 2020-11-10 16:05 | EKG12_ITS ---
Test Reason : CP Blood Pressure : / mmHG Vent. Rate : 110 BPM Atrial Rate : 110 BPM P-R Int : 192 ms QRS Dur : 110 ms QT Int : 352 ms P-R-T Axes : 075 026 057 degrees QTc Int : 476 ms Poor data quality, interpretation may be adversely affected Sinus tachycardia with frequent and consecutive Premature ventricular complexes with junctional escap e complexes Incomplete right bundle branch block Abnormal ECG Confirmed by MATTY SHERMAN, GELA ([id number]), science editor GAMA BARRETT ([id number]) on 11/11/2020 10:18:19 AM Referred By: ERIC Confirmed By:GELA STARR MD
[2020-11-10 16:15] LABS: Absolute Neutrophil Count 6.2 X10^3/uL (2.0-7.7); Basophil# 0.04 X10^3/uL; Basophil% 0.3 % (0-1); Eosinophil# 0.18 X10^3/uL; Eosinophils% 1.5 % (0-5); Hematocrit 38.6 % (40-54); Hemoglobin 11.8 g/dL (13.0-16.5); Lymphocyte % 36.6 % (19-41); Mean Corp Hgb Conc 30.6 g/dL (32-36); Mean Corpuscular Hgb 30.9 pg (27.0-32.0); Mean Platelet Vol. 9.5 fl (6.2-12.0); Monocyte# 1.36 X10^3/uL; Monocyte% 11.1 % (0-10); NRBC Flagged by Analyzer 0 % (0-5); Neutrophil # 6.18 X10^3/uL (2.7-7.7); Neutrophil % 50.2 % (47-70); Platelet Count 305 K/mm3 (150-450); RBC Distribution Width CV 12.6 % (11.6-14.6); RBC Distribution Width SD 46.6 fl (35.1-43.9); Red Blood Count 3.82 M/mm3 (4.6-6.2); White Blood Count 12.3 K/mm3 (4.4-11.0)
--- NOTE | 2020-11-10 16:20 | RAD_ITS ---
STUDY: X-RAY CHEST REASON FOR EXAM: Male, 85 years old. chest pain TECHNIQUE: Single AP portable view of the chest. COMPARISON: 05/23/2020 FINDINGS: There is hyperinflation of the lungs consistent with chronic obstructive lung disease (COPD). Large right-sided pneumothorax. Normal size heart. Normal mediastinum and juan manuel. Normal visualized pulmonary arteries. Normal visualized aortic arch and descending thoracic aorta. Normal visualized thoracic spine. Normal visualized ribs, clavicles, and shoulders. There is no demonstrated abnormality of the visualized soft tissue structures of the upper abdomen. RAD/Chest 1 View (Portable) IMPRESSION: Emphysema with a large right-sided pneumothorax N.B. : The above information has been verbally conveyed by Nikko Terry MD to Jose Orozco MD, on 11/10/2020 16:34:44 (ET). Electronically Signed: Nikko Terry MD at 16:35 EDT Tel , Service support ,
[2020-11-10] MEDS: Ipratropium/Albuterol Sulfate 3 ML AMPUL.NEB INHALATION ×2 (16:21→22:16)
[2020-11-10] MEDS: MethylPREDNISolone 125 MG/2 ML Vial IV (16:34)
[2020-11-10 16:42] LABS: Anion Gap 0 (5-15); BUN 21 mg/dL (7-18); BUN/Creat Ratio 24.2 RATIO (10-20); Calcium,Total 10.8 mg/dL (8.5-10.1); Chloride 101 mmol/L (98-107); Creatinine, Serum 0.87 mg/dL (0.70-1.30); EST Glomerular Filtration Rate 89 mL/min (>60); Est Glom Filt Rate - Afr Amer 108 mL/min (>60); Estimated Creatinine Clearance 61.15 ml/min; Glucose 153 mg/dL (74-106); Potassium 3.8 mmol/L (3.5-5.1); Sodium Level 140 mmol/L (136-145)
--- NOTE | 2020-11-10 16:46 | ED.RN ---
1645 r chest tube placed by dr. conklin. patient oxygenation increasing from 92% to 97% on bipap 05/22 rate of 14 70%. Tray CAMARGO in room to assist with .
--- NOTE | 2020-11-10 16:55 | CM.ED ---
SOCIAL WORK Reason for Consult: Support Patient having chest tube placed. Emotional support provided to . Viviana Tabares, PRINTED PRODUCTS ASSEMBLER, TOBACCO WETTER
--- NOTE | 2020-11-10 17:00 | RAD_ITS ---
STUDY: X-RAY CHEST REASON FOR EXAM: Male, 85 years old. post chest tube placement TECHNIQUE: Single AP portable view of the chest. COMPARISON: 11/10/2020 at 1616 FINDINGS: Interval placement of right-sided small bore thoracostomy tube with resolution of the right-sided pneumothorax. There is hyperinflation of the lungs consistent with chronic obstructive lung disease (COPD). There is no demonstrated pleural abnormality. Normal size heart. Normal mediastinum and juan manuel. Normal visualized pulmonary arteries. Normal visualized aortic arch and descending thoracic aorta. Normal visualized thoracic spine. Normal visualized ribs, clavicles, and shoulders. There is no demonstrated abnormality of the visualized soft tissue structures of the upper abdomen. RAD/Chest 1 View (Portable) IMPRESSION: Interval placement of a right-sided small bore thoracostomy tube with resolution of the pneumothorax. Electronically Signed: Nikko Terry MD at 17:32 EDT Tel , Service support ,
--- NOTE | 2020-11-10 17:21 | ED.RN ---
dr. conklin cancelled sepsis alert verbal order
[2020-11-10 17:25] LABS: BNP,B-Type NATRIURETIC PEPTIDE 59.4 pg/mL (0-100)
--- NOTE | 2020-11-10 17:40 | EX.ED.DYSGE1 ---
HPI History of Present Illness Chief Complaint: Chest Pain Informant: patient and spouse/S.O. Onset/Context/Timing Onset: Today Timing: Continuous Location: Chest Current Severity: Moderate Maximum Severity: Moderate Worsened by: Nothing Relieved by: Nothing Associated Symptoms Associated Symptoms: Shortness of breath Narrative Narrative: I saw the patient in triage. I was called by nurse for an oxygen saturation of 69%. Patient was unable to provide very much history and appeared in distress. History was limited. Additional history was obtained by the spouse once the patient was stabilized and placed in an exam room. She said that on the way to a doctor appointment at 4 PM, the patient was complaining of chest pain and shortness of breath. He had similar symptoms in the past with a pneumothorax, 20 years ago. Prior similar symptoms: Yes Recent Illness/Hospitalization: No [facility] Medical History Chest pain Chronic respiratory failure with hypoxia, on home oxygen therapy COPD (chronic obstructive pulmonary disease) COPD exacerbation Depression Essential tremor HTN (hypertension) Iron deficiency anemia Iron deficiency anemia Obesity (BMI 30.0-34.9) Pre-diabetes Home Medications Curcumin 1 tab PO DAILY 10/24/17 [History Last Taken 04/07/19] albuterol sulfate 1 - 2 puff INHALATION Q6H PRN 10/24/17 [History Last Taken 10/24/17] cholecalciferol (vitamin D3) 5,000 unit PO DAILY 10/24/17 [History Last Taken 04/07/19] coenzyme Q10 10 mg PO DAILY 10/24/17 [History Last Taken 04/07/19] omega-3 fatty acids-fish oil 1 ea PO BID 10/24/17 [History Last Taken 04/07/19] albuterol sulfate 2.5 mg INHALATION Q6H 04/07/19 [History Last Taken 04/07/19] escitalopram oxalate 5 mg PO DAILY 04/07/19 [History Last Taken Unknown] melatonin-pyridoxine HCl (B6) 6 mg PO QHS 04/07/19 [History Last Taken 04/06/19] pantoprazole 40 mg PO DAILY 04/07/19 [History Last Taken Unknown] losartan 50 mg PO DAILY #30 tab 04/10/19 [Rx Last Taken 06/06/20] azithromycin 250 mg tablet 250 mg PO DAILY 05/30/20 [History Last Taken Unknown] ferrous gluconate 240 mg (27 mg iron) tablet 240 mg PO DAILY 05/30/20 [History Last Taken Unknown] furosemide 20 mg tablet 20 mg PO DAILY 05/30/20 [History Last Taken Unknown] multivitamin 1 cap PO BID cap 05/30/20 [History Last Taken Unknown] oxygen-air delivery systems #1 05/30/20 [History Last Taken Unknown] procyanidolic oligomers 50 mg capsule 100 mg PO DAILY cap 05/30/20 [History Last Taken Unknown] Betasitosterol 320 mg PO DAILY 06/02/20 [History Last Taken Unknown] iqlicqktajm-ehyadoghq-orrlewbl 1 ea IH DAILY 06/02/20 [History Last Taken Unknown] guaifenesin 1,200 mg PO BID 06/02/20 [History Last Taken Unknown] nebivolol 10 mg PO DAILY 06/02/20 [History Last Taken 06/06/20] roflumilast 500 mcg PO DAILY 06/02/20 [History Last Taken Unknown] Allergy/AdvReac Type Severity Reaction Status Date / Time mussels AdvReac Vomiting Verified 06/06/20 06:14 Family History Mother CVA (cerebral vascular accident) Surgical History History of bilateral inguinal herniorrhaphies History of cholecystectomy History of tonsillectomy Social History Smoking Status: Former smoker alcohol intake: current alcohol intake frequency: 0-2 drinks per day substance use type: does not use ROS ROS ED Constitutional Constitutional ED: Denies chills or fever(s) Eyes Eyes: Denies change in vision ENT ENT ED: Denies ear pain Cardiovascular Cardiovascular: Reports chest pain; Denies palpitations Respiratory/Chest Respiratory/Chest: Reports dyspnea; Denies cough Gastrointestinal Gastrointestinal: Denies abdominal pain, nausea or vomiting Genitourinary Genitourinary ED: Denies dysuria Musculoskeletal Musculoskeletal: Denies arthralgias, back pain or myalgias Integumentary Denies rash Neurologic Neurologic: Denies headache(s) Psychiatric Psychiatric: Denies depression Endocrine Endocrinology: Denies polyuria Allergic/Immunologic Allergic/Immunologic ED: Denies urticaria EXAM Physical Exam Const Vital Signs: 11/10/20 15:59 11/10/20 16:03 11/10/20 16:09 Temperature 97.1 F L Temperature Source Temporal Pulse Rate 106 H Respiratory Rate 28 H Respiratory Effort Blood Pressure 200/122 H Blood Pressure Mean 148 Pulse Ox 69 95 Oxygen Delivery Method Nasal Cannula Non-Rebreather Non-Rebreather Oxygen Flow Rate (L/min) 5 15 15 Fraction of Inspired Oxygen (FIO2) 11/10/20 16:11 11/10/20 16:17 11/10/20 16:53 Temperature 98.4 F Temperature Source Temporal Pulse Rate 101 H 96 Respiratory Rate 28 H 27 H Respiratory Effort Short of Breath Accessory Muscle Use Blood Pressure 201/95 H 186/101 H Blood Pressure Mean 130 129 Pulse Ox 95 99 Oxygen Delivery Method Bi-pap Bi-pap Oxygen Flow Rate (L/min) Fraction of Inspired Oxygen (FIO2) 60 11/10/20 17:05 11/10/20 17:19 Temperature Temperature Source Pulse Rate 95 96 Respiratory Rate 27 H 24 H Respiratory Effort Blood Pressure 144/77 H 132/70 H Blood Pressure Mean 99 90 Pulse Ox 100 97 Oxygen Delivery Method Bi-pap Nasal Cannula Oxygen Flow Rate (L/min) 2 Fraction of Inspired Oxygen (FIO2) 40 Positive well nourished and well developed General Appearance ED: well developed HEENT trauma Eyes EOMs intact bilaterally Neck supple Chest Wall inspection of chest normal Resp Auscultation: diminished lung sounds Cardio Rate: tachycardic GI normal to inspection, nondistended, normoactive bowel sounds Extremity normal to inspection General Extremety ED: Negative for tenderness Neuro oriented x3 Sensorium / Orientation: alert Psych mental status grossly normal Skin no rashes or lesions noted MDM MDM MDM Narrative Medical decision making narrative: I saw the patient immediately on arrival in triage. He was hypoxic and nursing had started a nonrebreather. His oxygen saturations were in the mid 90s. He had diminished lung sounds in all pru[place]. He reported a history of COPD and is on home oxygen 4 L. He said his chest pain had resolved and that he felt short of breath. I was concerned for a COPD exacerbation. BiPAP was started. Patient was placed in an exam room. His arrived. She was able to provide additional history. She reported that he had a pneumothorax in 2000. She said his chest pain started fairly suddenly and felt like his prior pneumothorax. With this additional information, I contacted x-ray right away. He did have a pneumothorax on the right side. He was consented for a pigtail thoracostomy. See the separate procedure note. The patient tolerated this well. His vital signs improved almost immediately. Repeat x-ray showed resolution of the pneumothorax. Laboratory studies were all fairly unremarkable. Patient will be admitted for further care. Lab Data Labs: Laboratory Results - last 24 hr 11/10/20 11/10/20 11/10/20 16:05 16:05 16:05 WBC 12.3 H RBC 3.82 L Hgb 11.8 L Hct 38.6 L MCV 101.0 H MCH 30.9 MCHC 30.6 L RDW Std Deviation 46.6 H RDW Coeff of Андрей 12.6 Plt Count 305 MPV 9.5 Immature Gran % (Auto) 0.300 Neut % (Auto) 50.2 Lymph % (Auto) 36.6 Stanly % (Auto) 11.1 H Eos % (Auto) 1.5 Baso % (Auto) 0.3 Absolute Neuts (auto) 6.2 Absolute Lymphs (auto) 4.50 Nucleated RBC % 0 Sodium 140 Potassium 3.8 Chloride 101 Carbon Dioxide 39.0 H Anion Gap 0 L BUN 21 H Creatinine 0.87 Estim Creat Clear Calc 61.15 Est GFR (MDRD) Af Amer 108 Est GFR (MDRD) Non-Af 89 BUN/Creatinine Ratio 24.2 H Glucose 153 H Calcium 10.8 H Troponin I < 0.015 B-Natriuretic Peptide 59.4 Radiography Chest X-Ray - ED: 1 View, Read by ED Physician and - (Right side pneumothorax) Diagnostic Testing: Radiology Impression Chest X-Ray 11/10/20 16:20 IMPRESSION: Emphysema with a large right-sided pneumothorax N.B. : The above information has been verbally conveyed by Nikko Terry MD to Jose Orozco MD, on 11/10/2020 16:34:44 (ET). Electronically Signed: Nikko Terry MD at 16:35 EDT Tel , Service support , ADDENDUM: 11/10/20 1642 IMPRESSION: Emphysema with a large right-sided pneumothorax N.B. : The above information has been verbally conveyed by Nikko Terry MD to Jose Orozco MD, on 11/10/2020 16:34:44 (ET). Electronically Signed: Nikko Terry MD at 16:35 EDT Tel , Service support , Chest X-Ray 11/10/20 17:00 IMPRESSION: Interval placement of a right-sided small bore thoracostomy tube with resolution of the pneumothorax. Electronically Signed: Nikko Terry MD at 17:32 EDT Tel , Service support , EKG Initial EKG: Attestation: I personally reviewed and interpreted this EKG as follows: Comments: Sinus tachycardia at a rate of 110 with right bundle branch block nonspecific ST and T wave changes, and prominent artifact Procedures Other Procedures Procedure(s): Chest tube. Patient gave consent for a pigtail thoracostomy. Patient was prepped and draped in a sterile fashion. Timeout was performed. The area was anesthetized with local lidocaine. The needle and catheter were inserted at the nipple line at the anterior axillary line. I did hear an escape of air. He was attached to suction and the tube was secured and dressed. Patient tolerated this well with no complications. Reevaluation showed resolution of his pain. Were able to wean him down to nasal cannula. Blood pressure and heart rate improved to normal. Critical Care Time Critical care time (excluding procedures): 30-74 minutes (45 mins), Including time spent: (45 mins), Discussing w/Patient &/or Family/Topper Packer, Discussing w/Consultants, Arranging Admission or Transfer and Performing Direct Patient Care at Bedside Discharge Plan Triage Chief Complaint: Chest Pain ED Provider: Jose Orozco Dx/Rx/DC Orders Prescriptions: No Action azithromycin 250 mg tablet 250 mg PO DAILY RF: 0 furosemide [Lasix] 20 mg tablet 20 mg PO DAILY RF: 0 multivitamin capsule 1 cap PO BID RF: 0 ferrous gluconate [Fergon] 240 mg (27 mg iron) tablet 240 mg PO DAILY RF: 0 procyanidolic oligomers 50 mg capsule 50 mg capsule 100 mg PO DAILY RF: 0 (DME) oxygen-air delivery systems device See Rx Instructions .ROUTE .MEDSUPPLY Qty: 1 RF: 0 coenzyme Q10 10 MG capsule 10 mg PO DAILY RF: 0 albuterol sulfate 90 MCG inhaler 1 - 2 puff INHALATION Q6H PRN (Reason: Sob &/Or Wheezing) RF: 0 cholecalciferol (vitamin D3) 5,000 UNIT capsule 5,000 unit PO DAILY RF: 0 omega-3 fatty acids-fish oil 1 EACH capsule 1 ea PO BID RF: 0 Curcumin 1 tab PO DAILY RF: 0 albuterol sulfate 2.5 MG/3 ML solution for nebulization 2.5 mg inhalation Q6H RF: 0 pantoprazole 40 MG tablet 40 mg PO DAILY RF: 0 melatonin-pyridoxine HCl (B6) 1 EACH tablet 6 mg PO QHS RF: 0 escitalopram oxalate 5 MG tablet 5 mg PO DAILY RF: 0 losartan 50 MG tablet 50 mg PO DAILY Qty: 30 RF: 0 guaifenesin 1,200 MG tablet extended release 12hr 1,200 mg PO BID RF: 0 nebivolol 10 MG tablet 10 mg PO DAILY RF: 0 roflumilast 500 MCG tablet 500 mcg PO DAILY RF: 0 girvxwkhphe-oolsfworf-spfluoae 1 EACH blister with device 1 ea IH DAILY RF: 0 Betasitosterol 320 mg PO DAILY RF: 0 Primary Care Provider: Jaime Vidales
--- NOTE | 2020-11-10 18:07 | CM.ED ---
SOCIAL WORK Follow up with patient and . Warm blanket provided. No further needs at this time. Plan: Admit Viviana Tabares MSW, HAND ASSEMBLER FOR PULLER OVER
--- NOTE | 2020-11-10 18:18 | HP.PCM.HOS_ITS ---
Documented by User: Jaime KAY 11/10/20 18:56 HPI - General HPI Narrative Patient is an 85-year-old male who presents to the ED at [facility] on 11/10/2020 with a chief complaint of chest pain and shortness of breath. Patient reports that about 4 PM today, him and his are driving to his doctor's office in [place] for evaluation of a sore on his butt, when he became acutely short of breath and started experiencing crushing chest pain. Patient immediately reported to the emergency department for evaluation. Upon presentation to the ED patient was hypoxic and needed to be started on a nonrebreather mask. After initiation of the nonrebreather mask patient's oxygen saturations increased to the mid 90s. A chest x-ray was obtained and demonstrated a right sided pneumothorax, at which point a pigtail thoracostomy was consented for and initiated. Patient tolerated procedure well and his presentation immediately improved. Chest x-ray demonstrated resolution of the pneumothorax post thoracostomy. Patient is still tachypneic at a rate of 20 breaths/min, HR 96, O2 sats 96% on 2 L via nasal cannula. CBC and BMP unremarkable. Chest x-ray obtained post thoracostomy demonstrated hyperinflation of the lungs consistent with COPD and resolution of the right- sided pneumothorax, heart was normal in size as well as associated vessels. Patient will be admitted to ICU for further evaluation and care. [facility] Medical History (Updated 11/10/20 @ 19:17 by Vanessa Yanez) Anemia Anxiety Chest pain Chronic respiratory failure with hypoxia, on home oxygen therapy COPD (chronic obstructive pulmonary disease) COPD exacerbation Depression Essential tremor Essential tremor Former smoker Hearing loss, left Hearing loss, right HTN (hypertension) Iron deficiency anemia Iron deficiency anemia Normal colonoscopy Normal endoscopy Obesity (BMI 30.0-34.9) On home oxygen therapy Osteoporosis Pre-diabetes Home Medications Curcumin 1 tab PO DAILY 10/24/17 [History Last Taken 04/07/19] albuterol sulfate 1 - 2 puff INHALATION Q6H PRN 10/24/17 [History Last Taken 11/10/20] cholecalciferol (vitamin D3) 5,000 unit PO DAILY 10/24/17 [History Last Taken 04/07/19] coenzyme Q10 10 mg PO DAILY 10/24/17 [History Last Taken 04/07/19] omega-3 fatty acids-fish oil 1 ea PO BID 10/24/17 [History Last Taken 04/07/19] albuterol sulfate 2.5 mg INHALATION 4X/DAY 04/07/19 [History Last Taken 11/10/20] escitalopram oxalate 5 mg PO DAILY 04/07/19 [History Last Taken Unknown] melatonin-pyridoxine HCl (B6) 6 mg PO QHS 04/07/19 [History Last Taken 04/06/19] ferrous gluconate 240 mg (27 mg iron) tablet 240 mg PO DAILY 05/30/20 [History Last Taken Unknown] furosemide 20 mg tablet 20 mg PO DAILY 05/30/20 [History Last Taken Unknown] oxygen-air delivery systems #1 05/30/20 [History Last Taken Unknown] [id number]-tqiwalyc 1 ea IH DAILY 06/02/20 [History Last Taken Unknown] nebivolol 10 mg PO DAILY 06/02/20 [History Last Taken 06/06/20] roflumilast 500 mcg PO DAILY 06/02/20 [History Last Taken Unknown] losartan 50 mg PO DAILY 11/10/20 [History Last Taken 11/10/20] multivitamin 1 tab PO DAILY 11/10/20 [History Last Taken 11/09/20] Allergy/AdvReac Type Severity Reaction Status Date / Time mussels AdvReac Vomiting Verified 06/06/20 06:14 Family History Mother CVA (cerebral vascular accident) Surgical History History of bilateral inguinal herniorrhaphies History of cholecystectomy History of tonsillectomy Social History Smoking Status: Former smoker alcohol intake: current alcohol intake frequency: 0-2 drinks per day substance use type: does not use ROS Constitutional Constitutional: Reports anorexia, change in weight and chills; Denies fatigue, fever(s), malaise, night sweats, weakness or other Eyes Eyes: Denies blurry vision, change in eye color, change in vision, discharge from eye(s), double vision, erythema, eye pain, loss of vision or other ENT HEENT: Denies abnormal hearing, dysphagia, ear pain, epistaxis, headache(s), hearing loss, nasal congestion, nasal discharge, post nasal drip, sinus pressure, sore throat or other Cardiovascular Cardiovascular: Reports chest pain, dyspnea on exertion, edema, orthopnea and rapid heart rate Respiratory/Chest Respiratory/Chest: Reports hemoptysis, productive cough, shortness of breath at rest, shortness of breath with exertion and wheezing Gastrointestinal Gastrointestinal: Denies abdominal pain, coffee ground emesis, constipation, diarrhea, dyspepsia, hematemesis, hematochezia, loose stools, melena, nausea, vomiting or other Genitourinary Genitourinary: Denies burning urination, difficulty urinating, dysuria, hematuria, nocturia, urinary frequency, urinary hesitancy, urinary incontinence, urinary urgency or other Musculoskeletal Musculoskeletal: Denies arthralgias, back pain, joint pain, joint stiffness, joint swelling, myalgias, neck pain or other Neurologic Neurologic: Denies abnormal gait, abnormal speech, confusion, disequilibrium, dizziness, focal weakness, headache(s), numbness, paresthesias, seizure-like activity, seizures, syncope, tingling, tremor(s) or other Psychiatric Psychiatric: Denies anxiety, depression, homicidal ideation, suicidal ideation or other Endocrine Endocrinology: Denies change in body appearance, cold intolerance, excessive sweating, heat intolerance, polydipsia, polyuria or other Hematologic/Lymphatic Hematologic/Lymphatic: Denies anemia, easy bleeding, easy bruising, lymphadenopathy or other Allergic/Immunologic Allergic/Immunologic: Denies rhinitis, hives, eczemia, asthma or other Vital Signs Vital Signs Vital Signs: 11/10/20 15:59 11/10/20 16:03 11/10/20 16:09 Temperature 97.1 F L Temperature Source Temporal Pulse Rate 106 H Respiratory Rate 28 H Respiratory Effort Respiratory Pattern Blood Pressure 200/122 H Blood Pressure Mean 148 Pulse Ox 69 95 Oxygen Delivery Method Nasal Cannula Non-Rebreather Non-Rebreather Oxygen Flow Rate (L/min) 5 15 15 Fraction of Inspired Oxygen (FIO2) 11/10/20 16:11 11/10/20 16:17 11/10/20 16:35 Temperature 98.4 F Temperature Source Temporal Pulse Rate 101 H 102 H Respiratory Rate 28 H 32 H Respiratory Effort Short of Breath Accessory Muscle Use Respiratory Pattern Tachypnea Blood Pressure 201/95 H Blood Pressure Mean 130 Pulse Ox 95 92 Oxygen Delivery Method Bi-pap Oxygen Flow Rate (L/min) Fraction of Inspired Oxygen (FIO2) 60 70 11/10/20 16:40 11/10/20 16:53 11/10/20 17:00 Temperature Temperature Source Pulse Rate 96 95 Respiratory Rate 27 H 29 H Respiratory Effort Respiratory Pattern Bradypnea Blood Pressure 186/101 H Blood Pressure Mean 129 Pulse Ox 99 98 Oxygen Delivery Method Bi-pap Oxygen Flow Rate (L/min) Fraction of Inspired Oxygen (FIO2) 70 50 11/10/20 17:05 11/10/20 17:19 11/10/20 18:08 Temperature Temperature Source Pulse Rate 95 96 96 Respiratory Rate 27 H 24 H 20 H Respiratory Effort Respiratory Pattern Blood Pressure 144/77 H 132/70 H 142/72 H Blood Pressure Mean 99 90 95 Pulse Ox 100 97 96 Oxygen Delivery Method Bi-pap Nasal Cannula Nasal Cannula Oxygen Flow Rate (L/min) 2 2 Fraction of Inspired Oxygen (FIO2) 40 Weight Weight: 195 lb 12.328 oz Body Mass Index (BMI) 29.7 Physical Exam Const alert, oriented x3, no apparent distress, average body habitus and healthy appearing General Appearance: cooperative HEENT normocephalic, head/scalp atraumatic, hearing grossly normal bilaterally and moist oral mucous membranes Eyes PERRL, EOMs intact bilaterally and conjunctivae normal Neck no lymphadenopathy, supple and no JVD Resp Effort and Inspection: tachypneic, respiratory distress, labored, uses accessory muscles and audible wheezes Auscultation: diminished lung sounds Cardio regular rate, regular rhythm, no murmurs and no JVD GI normal to inspection, nondistended, normoactive bowel sounds, soft to palpation, non-tender and non-distended Skin no rashes or lesions noted, no wounds, skin turgor normal and no jaundice Neuro CN's II-XII intact bilaterally Psych affect normal Mood & Affect: anxious Lab / Micro Data Result Diagrams: 11/10/20 16:05 11/10/20 16:05 Labs: Laboratory Results - last 24 hr 11/10/20 11/10/20 11/10/20 16:05 16:05 16:05 WBC 12.3 H RBC 3.82 L Hgb 11.8 L Hct 38.6 L MCV 101.0 H MCH 30.9 MCHC 30.6 L RDW Std Deviation 46.6 H RDW Coeff of Андрей 12.6 Plt Count 305 MPV 9.5 Immature Gran % (Auto) 0.300 Neut % (Auto) 50.2 Lymph % (Auto) 36.6 [place] % (Auto) 11.1 H Eos % (Auto) 1.5 Baso % (Auto) 0.3 Absolute Neuts (auto) 6.2 Absolute Lymphs (auto) 4.50 Nucleated RBC % 0 Sodium 140 Potassium 3.8 Chloride 101 Carbon Dioxide 39.0 H Anion Gap 0 L BUN 21 H Creatinine 0.87 Estim Creat Clear Calc 61.15 Est GFR (MDRD) Af Amer 108 Est GFR (MDRD) Non-Af 89 BUN/Creatinine Ratio 24.2 H Glucose 153 H Calcium 10.8 H Troponin I < 0.015 B-Natriuretic Peptide 59.4 Micro: Microbiology 11/10/20 16:12 SARS-CoV-2 Antigen (Rapid) - Final Interface Orders Radiology Impression Chest X-Ray 11/10/20 16:20 IMPRESSION: Emphysema with a large right-sided pneumothorax N.B. : The above information has been verbally conveyed by Nikko Terry MD to Jose Orozco MD, on 11/10/2020 16:34:44 (ET). Electronically Signed: Nikko Terry MD at 16:35 EDT Tel , Service support , ADDENDUM: 11/10/20 1642 IMPRESSION: Emphysema with a large right-sided pneumothorax N.B. : The above information has been verbally conveyed by Nikko Terry MD to Jose Orozco MD, on 11/10/2020 16:34:44 (ET). Electronically Signed: Nikko Terry MD at 16:35 EDT Tel , Service support , Chest X-Ray 11/10/20 17:00 IMPRESSION: Interval placement of a right-sided small bore thoracostomy tube with resolution of the pneumothorax. Electronically Signed: Nikko Terry MD at 17:32 EDT Tel , Service support , Assessment & Plan Assessment/Plan (1) COPD exacerbation: (2) Depression: (3) HTN (hypertension): (4) Essential tremor: (5) Chest pain: QUALIFIERS: Chest pain type: unspecified Qualified Code(s): R07.9 - Chest pain, unspecified (6) COPD (chronic obstructive pulmonary disease): QUALIFIERS: COPD type: unspecified COPD Qualified Code(s): J44.9 - Chronic obstructive pulmonary disease, unspecified (7) Pneumothorax: (8) CHF (congestive heart failure): (9) Acute and chronic respiratory failure with hypoxia: PLAN: Patient is an 85-year-old male who presents to the ED at [facility] on 11/10/2020 with a chief complaint of chest pain and shortness of breath. Upon presentation to the ED it was discovered that patient's shortness of breath and chest pain were related to a large right-sided pneumothorax. Chest thoracostomy was completed and symptomatology improved. Chest x-ray demonstrated resolution of the pneumothorax post thoracostomy. Patient is still tachypneic at a rate of 20 breaths/min, HR 96, O2 sats 96% on 2 L via nasal cannula. CBC and BMP unremarkable. Chest x-ray obtained post thoracostomy demonstrated hyperinflation of the lungs consistent with COPD and resolution of the right-sided pneumothorax, heart was normal in size as well as associated vessels. Patient will be admitted to ICU for further evaluation and care. 1) Acute on chronic respiratory failure secondary to Pnemothorax Unclear etiology at this time, possibly iatrogenic due to BiPAP administration in the ED upon presentation given patient's COPD history. Plan; admit to ICU for observation, pulmonary consult ordered, BiPAP as needed, O2 per protocol. 2) Chest pain Secondary to #1 3) COPD Exacerbation Chest x-ray consistent with emphysematous changes. Plan; Proventil continued, Trelegy Ellipta continued, guaifenesin continued Roflumilast continued. 4) CHF No diagnosed history of CHF. Chest x-ray demonstrates normal size heart and associated vessels. On Lasix 20 mg p.o. daily at home. Plan; obtain echocardiogram, BMP ordered, pulmonary medicine consulted, continue losartan, Lasix 40 mg p.o. daily initiated at admission. 5) Essential tremor Continue nebivolol. 6) Depression Continue Lexapro. 7) hypertension 144/65, not within goal. Plan; continue losartan and Lasix as above. DVT Prophylaxis - Lovenox SC Patient seen by Jaime Mora PA-C, under the supervision of Dr. Freed. Documented by User: Dr. Martina Freed MD 11/10/20 19:31 HPI - General General Date of Admission: 11/10/20 PFSH Medical History (Updated 11/10/20 @ 19:17 by Vanessa Yanez) Anemia Anxiety Chest pain Chronic respiratory failure with hypoxia, on home oxygen therapy COPD (chronic obstructive pulmonary disease) COPD exacerbation Depression Essential tremor Essential tremor Former smoker Hearing loss, left Hearing loss, right HTN (hypertension) Iron deficiency anemia Iron deficiency anemia Normal colonoscopy Normal endoscopy Obesity (BMI 30.0-34.9) On home oxygen therapy Osteoporosis Pre-diabetes Home Medications Curcumin 1 tab PO DAILY 10/24/17 [History Last Taken 04/07/19] albuterol sulfate 1 - 2 puff INHALATION Q6H PRN 10/24/17 [History Last Taken 11/10/20] cholecalciferol (vitamin D3) 5,000 unit PO DAILY 10/24/17 [History Last Taken 04/07/19] coenzyme Q10 10 mg PO DAILY 10/24/17 [History Last Taken 04/07/19] omega-3 fatty acids-fish oil 1 ea PO BID 10/24/17 [History Last Taken 04/07/19] albuterol sulfate 2.5 mg INHALATION 4X/DAY 04/07/19 [History Last Taken 0 11/10/20] escitalopram oxalate 5 mg PO DAILY 04/07/19 [History Last Taken Unknown] melatonin-pyridoxine HCl (B6) 6 mg PO QHS 04/07/19 [History Last Taken 04/06/19] ferrous gluconate 240 mg (27 mg iron) tablet 240 mg PO DAILY 05/30/20 [History Last Taken Unknown] furosemide 20 mg tablet 20 mg PO DAILY 05/30/20 [History Last Taken Unknown] oxygen-air delivery systems #1 05/30/20 [History Last Taken Unknown] hrrealspijt-shhdstljq-rzgxjhrl 1 ea IH DAILY 06/02/20 [History Last Taken Unknown] nebivolol 10 mg PO DAILY 06/02/20 [History Last Taken 06/06/20] roflumilast 500 mcg PO DAILY 06/02/20 [History Last Taken Unknown] losartan 50 mg PO DAILY 11/10/20 [History Last Taken 11/10/20] multivitamin 1 tab PO DAILY 11/10/20 [History Last Taken 11/09/20] Allergy/AdvReac Type Severity Reaction Status Date / Time mussels AdvReac Vomiting Verified 06/06/20 06:14 Family History Mother CVA (cerebral vascular accident) Surgical History History of bilateral inguinal herniorrhaphies History of cholecystectomy History of tonsillectomy Social History Smoking Status: Former smoker alcohol intake: current alcohol intake frequency: 0-2 drinks per day substance use type: does not use Lab / Micro Data Result Diagrams: 11/10/20 16:05 11/10/20 16:05 Addendum Addendum: This patient was seen in conjunction with ELIZA Mike. I have independently interviewed and examined the patient and reviewed pertinent historical, laboratory, and other data. Please refer to ELIZA Mike's note for his patient's presentation, findings, and recommendations. I have reviewed and his note and concur with his documentation 85-year-old male who comes in with sudden onset of shortness of breath and was found to be in respiratory distress on triage in the ED. His oxygen saturation was 69%. He was started on BiPAP. Further history in the ED was suggestive of history of pneumothorax 20 years ago. Chest x-ray was suggestive of large pneumothorax on the right. Patient had a chest tube placed at the bedside. At the time of being seen, he complains of pain in the right side of his chest. He admits to feeling short of breath, and having bilateral leg swelling. He denied any fever or chills or runny nose. He remains tachypneic and has dyspnea, unable to complete his sentences, has visible use of accessory muscles of respiration. Physical Exam: Gen: Appears in moderate respiratory distress, respiratory rate is more than 22, not pale, not jaundiced, on 3 L of oxygen CVS:HS I +II, regular, no murmurs RESP: Diminished at lung bases, s/p right posterior chest tube GI: BS present and normal, soft, nontender, no palpable organs EXT: Bilateral leg edema +3 ASSESSMENT: 1. Acute on chronic hypoxic respiratory failure 2. Acute spontaneous pneumothorax status post chest tube placement 3. Acute CHF, probably systolic, previous EF was 55% 4. Probable acute COPD exacerbation 5. Hypertension 6. Depression 7. Iron deficiency anemia Plan: Admit to ICU, continue on breathing treatments, IV Solu-Medrol Critical care and general surgery consult IV Solu-Medrol, IV Lasix, repeat 2D-ECHO, Umm-wraps to legs Strict I's and O's, daily weights Continue rest of home medication CODE STATUS: Full code I discussed and explained in details the various types of CODE STATUS-full code, DNR CCA, DNR CC. Patient chose to be full code and wants everything done for him including resuscitation. Time spent discussing CODE STATUS 17 minutes Visit Charges Inpatient E&M: 65736 Init Hosp L3 Procedures Hospitalists Procedures: 98968 Advncd Care Plan 30 Min
--- NOTE | 2020-11-10 18:35 | RAD_ITS ---
STUDY: X-RAY CHEST REASON FOR EXAM: Male, 85 years old. dyspnea, post tube thoracostomy TECHNIQUE: Frontal and lateral views of the chest. COMPARISON: Same day, 4:51 PM. FINDINGS: Stable appearance of small bore right pleural drain tube. Stable tiny right apical pneumothorax. No other changes since earlier today. Electronically Signed: James Melgar MD at 19:28 EDT , Service support , RAD/Chest 1 View (Portable)
[2020-11-10] MEDS: Furosemide 40 MG/4 ML Vial IV (19:00)
--- NOTE | 2020-11-10 21:08 | ECHOD_ITS ---
Reason For Study: CHF Procedure This was a 2D Doppler, Color Flow transthoracic echocardiogram. Exam performed portable in ICU/CCU. Left Ventricle Normal left ventricle. The estimated ejection fraction is Calculated EF 72% %. Right Ventricle Normal right ventricle. Atria Normal left atrium. Normal right atrium. Mitral Valve The mitral valve is structurally normal. No prolapse or stenosis seen. Tricuspid Valve The tricuspid valve is not well visualized. Aortic Valve Aortic sclerosis, no stenosis. Pulmonic Valve The pulmonic valve is not well visualized. Great Vessels Normal aortic root. Pericardium/Pleural No pericardial effusion. MMode/2D Measurements & Calculations LVIDd: 4.5 cm IVSd: 1.0 cm Ao root diam: 3.3 cm LVIDs: 3.1 cm LVPWd: 1.1 cm RVDd: 3.2 cm FS: 29.4 % LAV(MOD-bp): 38.8 ml EDV(MOD-sp4): 58.2 ml EDV(MOD-sp2): 58.5 ml LAV(MOD-bp) Indexed: 19.3 ml/m2 ESV(MOD-sp4): 16.0 ml ESV(MOD-sp2): 22.4 ml LAV(MOD-sp2): 37.5 ml EF(MOD-sp4): 72.5 % EF(MOD-sp2): 61.8 % LAV(MOD-sp4): 39.5 ml SV(MOD-sp4): 42.2 ml SV(MOD-sp2): 36.1 ml LA A4 area: 15.8 cm2 LA dimension(2D): 3.5 cm RA A4 area: 14.4 cm2 Doppler Measurements & Calculations MV E max saleem: 49.5 cm/sec Lat Peak E' Saleem: 6.6 cm/sec Med Peak E' Saleem: 5.6 cm/sec MV A max saleem: 102.6 cm/sec E/E' lat: 7.5 E/E' med: 8.9 MV E/A: 0.48 Ao V2 max: 187.8 cm/sec LV V1 max: 105.2 cm/sec PA V2 max: 133.7 cm/sec Ao max P.1 mmHg LV V1 max P.4 mmHg Ao V2 mean: 127.9 cm/sec LV V1 mean P.5 mmHg Ao mean P.3 mmHg LV V1 mean: 75.3 cm/sec Ao V2 VTI: 32.3 cm LV V1 VTI: 24.5 cm ECHO/Echo Complete Interpretation Summary The estimated ejection fraction is Calculated EF 72% %. Normal LV systolic function No change from prior ECHO 03/11/2020 Ordering Physician: Jaime Mora Referring Physician: Jaime Vidales Performed By: Ranjana Tamez, TOM, RVT
[2020-11-10] MEDS: guaiFENesin 1,200 MG Tablet 1200 MG PO (23:18)
[2020-11-10] MEDS: Enoxaparin 40 MG/0.4 ML Syringe SC (23:18)
[2020-11-10] MEDS: Menthol/Lanolin/Calamine/Znox 113 GM Tube 1 APPLIC TOPICAL (23:18)
[2020-11-11] VITALS (17 sets, daily range): BP systolic 107–175; BP diastolic 51–78; PULSE 81–117; RESP 18–27; TEMP 36.6–37; O2SAT 90–99
--- NOTE | 2020-11-11 05:55 | RAD_ITS ---
STUDY: X-RAY CHEST REASON FOR EXAM: Male, 85 years old. spontaneous pneumothorax TECHNIQUE: Single AP portable view of the chest. COMPARISON: 11/10/2020 FINDINGS: Right-sided small bore thoracostomy tube with a tiny apical pneumothorax. There is hyperinflation of the lungs consistent with chronic obstructive lung disease (COPD). There is no demonstrated pleural abnormality. Normal size heart. Normal mediastinum and juan manuel. Normal visualized pulmonary arteries. Normal visualized aortic arch and descending thoracic aorta. Normal visualized thoracic spine. Normal visualized ribs, clavicles, and shoulders. There is no demonstrated abnormality of the visualized soft tissue structures of the upper abdomen. RAD/Chest 1 View (Portable) IMPRESSION: Right-sided small bore thoracostomy tube with a tiny apical pneumothorax. Electronically Signed: Nikko Terry MD at 8:17 EDT Tel , Service support ,
[2020-11-11 06:19] LABS: Absolute Lymphocyte Count 0.47 X10^3/uL (0.83-4.51); Absolute Neutrophil Count 9.4 X10^3/uL (2.0-7.7); Basophil# 0.01 X10^3/uL; Basophil% 0.1 % (0-1); Hematocrit 36.6 % (40-54); Hemoglobin 11.2 g/dL (13.0-16.5); Lymphocyte # 0.47 X10^3/ul (0.83-4.51); Lymphocyte % 4.6 % (19-41); Mean Corp Hgb Conc 30.6 g/dL (32-36); Mean Corpuscular Hgb 30.6 pg (27.0-32.0); Mean Platelet Vol. 9.8 fl (6.2-12.0); Monocyte# 0.34 X10^3/uL; Monocyte% 3.3 % (0-10); NRBC Flagged by Analyzer 0 % (0-5); Neutrophil # 9.41 X10^3/uL (2.7-7.7); Neutrophil % 91.6 % (47-70); POSITIVE DIFFERENTIAL YES; Platelet Count 240 K/mm3 (150-450); RBC Distribution Width CV 12.3 % (11.6-14.6); Red Blood Count 3.66 M/mm3 (4.6-6.2); White Blood Count 10.3 K/mm3 (4.4-11.0)
[2020-11-11 06:20] LABS: Differential Indicated SCAN CRITERIA MET
[2020-11-11 06:29] LABS: International Normalized Ratio 1.1; Prothrombin Time (Protime)PT. 13.2 SECONDS (11.7-14.9)
[2020-11-11 06:35] LABS: ALB/GLOB Ratio 0.9 RATIO (0.9-2.4); AST(SGOT) 21 U/L (15-37); Alanine Aminotransfer ALT/SGPT 21 U/L (16-61); Albumin, Serum 3.3 g/dL (3.2-5.0); Alkaline Phosphatase 63 U/L (45-117); Anion Gap 5 (5-15); BUN 28 mg/dL (7-18); BUN/Creat Ratio 28.4 RATIO (10-20); Calcium,Total 10.1 mg/dL (8.5-10.1); Chloride 99 mmol/L (98-107); Creatinine, Serum 0.99 mg/dL (0.70-1.30); EST Glomerular Filtration Rate 77 mL/min (>60); Est Glom Filt Rate - Afr Amer 93 mL/min (>60); Estimated Creatinine Clearance 50.12 ml/min; Globulin 3.7 g/dL (2.2-4.2); Glucose 191 mg/dL (74-106); Potassium 4.7 mmol/L (3.5-5.1); Sodium Level 141 mmol/L (136-145)
[2020-11-11 06:36] LABS: Differential Comment SCANNED
[2020-11-11] MEDS: Ipratropium/Albuterol Sulfate 3 ML AMPUL.NEB INHALATION ×3 (06:58→19:03)
--- NOTE | 2020-11-11 07:15 | NURSING ---
Pt observed in resp distress, tachypneic, tachycardia, occasional bubbling in water chamber. Oxygen increased from 4-6L. Pt repositioned for comfort and given time to recover. Bubbling subsided and VS improved a few minutes later.
--- NOTE | 2020-11-11 08:10 | CON.PCM.CC_ITS ---
Assessment & Plan Assessment/Plan (1) Pneumothorax: (2) Acute and chronic respiratory failure with hypoxia: (3) Chronic respiratory failure with hypoxia, on home oxygen therapy: (4) HTN (hypertension): (5) Obesity (BMI 30.0-34.9): (6) Pre-diabetes: (7) Iron deficiency anemia: (8) CHF (congestive heart failure): PLAN: RECOMMENDATIONS: 1. Continue chest tube at low intermittent suction 2. Continue therapeutic substitution for baseline triple therapy 3. Wean oxygen as tolerated 4. Increase activity as tolerated 5. Avoid BiPAP if possible 6. Okay to leave the intensive care unit from my perspective 7. Contact Dr. Greene to see if he can assume care from a pulmonary perspective IMPRESSIONS: 1. Acute on chronic hypoxic respiratory failure secondary to spontaneous pneumothorax Patient is a poor historian, but is not reporting any signs or symptoms of exacerbation prior to acute event. Clinical suspicion for significant emphysematous changes subpleural leading to a spontaneous pneumothorax. Patient does not have acute infiltrate on chest x-ray. Do not believe patient is currently in a COPD exacerbation. Given prediabetes, likely reasonable to continue with just therapeutic substitution of baseline triple therapy. Chest tube should remain at suction. Patient can likely leave the intensive care unit. Would avoid BiPAP therapy if possible as this can lead to tension phys iology versus bronchopleural fistula pending chest tube status. Walking oximetry prior to discharge. Agree with mucolytic. Contact Dr. Greene does see if he can resume pulmonary care. Okay to leave the intensive care unit from my perspective. 2. Chronic hypoxic respiratory failure secondary to COPD Patient appears to have relatively advanced COPD by available history. Could contact Dr. Greene for more details. Patient's bicarbonate is significantly elevated suggesting CO2 retention at baseline. Would attempt to keep saturations between 90 and 95%. 3. Hypertensive urgency/reported CHF Patient appears to be euvolemic at this time with a normal BNP. Echocardiogram done late last year showed normal diastolic function for age. However, given advanced age, patient would be at risk for diastolic complications. Rate is currently controlled. Unclear if presenting blood pres sure was secondary to acute response to pneumothorax. Okay to resume baseline medications from my perspective. Patient does not have any infiltrates or other findings suggestive of sepsis at this time. 4. Essential tremor/depression/advanced age/poor historian/chronic wound Complicates care, management, recovery and prognosis. Patient may benefit from evaluation by therapy. Patient should be seen by the wound nurse to ensure that current wounds do not worsen under the acute condition. HPI Consult Data Date of Consult: 11/11/20 HPI Narrative HPI Narrative: ED MARAVILLA is an 85-year-old male, with past medical history listed below, who presented to [facility] on 11/10/2020 secondary to acute onset of shortness of breath. Patient reportedly was going to a physician about a wound and developed acute onset of shortness of breath. Patient reportedly was of his usual health prior to this presentation. On arrival to the ER, patient was noted to have a saturation of 69% in triage. Patient reportedly had had a history of a pneumothorax 20 years ago with similar type symptoms. Patient follows with Dr. Greene at baseline. Patient did respond to a nonrebreather, but was hypertensive at 200/122 and tachycardic at 106 on presentation. Patient was placed on BiPAP for a short period of time given hypoxia. Patient reportedly uses 4 L nasal cannula at baseline secondary to COPD. Chest x-ray was consistent with a right-sided pneumothorax, so a pigtail chest tube was placed with improvement in vitals. Subsequently, laboratory work-up showed a mild leukocytosis of 12.3, anemia of 11.8 and unremarkable chemistries. BNP and troponin were within normal limits. EKG showed tachycardia at 110 bpm with a right bundle branch. Patient reportedly follows with Dr. Greene at baseline. Patient reportedly was not having increased shortness of breath, change in sputum or need for supplemental oxygen prior to the acute onset of shortness of breath. Patient is not a very good historian and unable to provide much additional information. Patient does remember having a previous pneumothorax and does not believe he had pleurodesis completed. Patient is on triple therapy at baseline in addition to his supplemental oxygen. Patient reportedly does tend to clear his throat often and states that he uses Mucinex intermittently. Review of systems otherwise negative from a constitutional, HEENT, respiratory, cardiovascular, GI, genitourinary, musculoskeletal, skin, neurologic, psychiatric and hematologic system unless stated above. [facility] Medical History Anemia Anxiety Chest pain Chronic respiratory failure with hypoxia, on home oxygen therapy COPD (chronic obstructive pulmonary disease) COPD exacerbation Depression Essential tremor Essential tremor Former smoker Hearing loss, left Hearing loss, right HTN (hypertension) Iron deficiency anemia Iron deficiency anemia Normal colonoscopy Normal endoscopy Obesity (BMI 30.0-34.9) On home oxygen therapy Osteoporosis Pre-diabetes Home Medications albuterol sulfate 1 - 2 puff INHALATION Q6H PRN 10/24/17 [History Last Taken 11/10/20] cholecalciferol (vitamin D3) 5,000 unit PO DAILY 10/24/17 [History Last Taken 11/09/20] coenzyme Q10 10 mg PO DAILY 10/24/17 [History Last Taken 11/09/20] omega-3 fatty acids-fish oil 1 ea PO BID 10/24/17 [History Last Taken 11/09/20] albuterol sulfate 2.5 mg INHALATION 4X/DAY 04/07/19 [History Last Taken 11/10/20] ferrous gluconate 240 mg (27 mg iron) tablet 240 mg PO DAILY 05/30/20 [History Last Taken 11/08/20] furosemide 20 mg tablet 20 mg PO DAILY 05/30/20 [History Last Taken 11/10/20] xiplgxffiex-ebabuoywy-hfvwsjiq 1 ea IH DAILY 06/02/20 [History Last Taken 11/09/20] nebivolol 5 mg PO DAILY 06/02/20 [History Last Taken 11/09/20] roflumilast 500 mcg PO DAILY 06/02/20 [History Last Taken 11/10/20] losartan 50 mg PO DAILY 11/10/20 [History Last Taken 11/10/20] melatonin 6 mg PO DAILY 11/10/20 [History Last Taken 11/09/20] multivitamin 1 tab PO BID 11/10/20 [History Last Taken 11/09/20] Allergy/AdvReac Type Severity Reaction Status Date / Time mussels AdvReac Vomiting Verified 06/06/20 06:14 Family History Mother CVA (cerebral vascular accident) Surgical History History of bilateral inguinal herniorrhaphies History of cholecystectomy History of tonsillectomy Social History Smoking Status: Former smoker alcohol intake: current alcohol intake frequency: 0-2 drinks per day substance use type: does not use ROS ROS Narrative See HPI. Somewhat limited secondary to poor historian Physical Exam Const oriented x3 and no apparent distress General Appearance: well kempt and well developed; Negative for in distress Nutritional Appearance: overweight HEENT normocephalic and head/scalp atraumatic; Negative for moist oral mucous m embranes Eyes PERRL, EOMs intact bilaterally and conjunctivae normal Neck full ROM Lymph Lymphatic: no lymphadenopathy noted Resp normal respiratory effort and no use of accessory muscles Resp Narrative: Right-sided chest tube is clean, dry and intact. Increased AP diameter Effort and Inspection: able to speak in complete sentences Auscultation: diminished lung sounds; Negative for rales, rhonchi or wheezes Cardio S1 normal heart sound, S2 normal heart sound, no murmurs, no rub, no gallops and no JVD GI normal to inspection, nondistended, normoactive bowel sounds Narrative: No CVA tenderness noted Extremity no clubbing, cyanosis or edema Skin Skin Narrative: Stage I coccyx lesion noted Neuro oriented x3 and CN's II-XII intact bilaterally Psych cooperative and affect normal Lab / Micro Data Result Diagrams: 11/11/20 06:10 11/11/20 06:10 Labs: Laboratory Results - last 24 hr 11/10/20 11/10/20 11/10/20 16:05 16:05 16:05 WBC 12.3 H RBC 3.82 L Hgb 11.8 L Hct 38.6 L MCV 101.0 H MCH 30.9 MCHC 30.6 L RDW Std Deviation 46.6 H RDW Coeff of Андрей 12.6 Plt Count 305 MPV 9.5 Immature Gran % (Auto) 0.300 Neut % (Auto) 50.2 Lymph % (Auto) 36.6 [place] % (Auto) 11.1 H Eos % (Auto) 1.5 Baso % (Auto) 0.3 Absolute Neuts (auto) 6.2 Absolute Lymphs (auto) 4.50 Nucleated RBC % 0 Differential Comment PT INR Sodium 140 Potassium 3.8 Chloride 101 Carbon Dioxide 39.0 H Anion Gap 0 L BUN 21 H Creatinine 0.87 Estim Creat Clear Calc 61.15 Est GFR (MDRD) Af Amer 108 Est GFR (MDRD) Non-Af 89 BUN/Creatinine Ratio 24.2 H Glucose 153 H Calcium 10.8 H Total Bilirubin AST ALT Alkaline Phosphatase Troponin I < 0.015 B-Natriuretic Peptide 59.4 Total Protein Albumin Globulin Albumin/Globulin Ratio 11/11/20 11/11/20 11/11/20 06:10 06:10 06:10 WBC 10.3 RBC 3.66 L Hgb 11.2 L Hct 36.6 L MCV 100.0 H MCH 30.6 MCHC 30.6 L RDW Std Deviation 45.0 H RDW Coeff of Андрей 12.3 Plt Count 240 MPV 9.8 Immature Gran % (Auto) 0.400 Neut % (Auto) 91.6 H Lymph % (Auto) 4.6 L [place] % (Auto) 3.3 Eos % (Auto) 0.0 Baso % (Auto) 0.1 Absolute Neuts (auto) 9.4 H Absolute Lymphs (auto) 0.47 L Nucleated RBC % 0 Differential Comment SCANNED PT 13.2 INR 1.1 Sodium 141 Potassium 4.7 Chloride 99 Carbon Dioxide 37.0 H Anion Gap 5 BUN 28 H Creatinine 0.99 Estim Creat Clear Calc 50.12 Est GFR (MDRD) Af Amer 93 Est GFR (MDRD) Non-Af 77 BUN/Creatinine Ratio 28.4 H Glucose 191 H Calcium 10.1 Total Bilirubin 0.40 AST 21 ALT 21 Alkaline Phosphatase 63 Troponin I B-Natriuretic Peptide Total Protein 7.0 Albumin 3.3 Globulin 3.7 Albumin/Globulin Ratio 0.9 Micro: Microbiology 11/10/20 16:12 SARS-CoV-2 Antigen (Rapid) - Final Interface Orders Radiology Impression Chest X-Ray 11/10/20 16:20 IMPRESSION: Emphysema with a large right-sided pneumothorax N.B. : The above information has been verbally conveyed by Nikko Terry MD to Jose Orozco MD, on 11/10/2020 16:34:44 (ET). Electronically Signed: Nikko Terry MD at 16:35 EDT Tel , Service support , ADDENDUM: 11/10/20 1642 IMPRESSION: Emphysema with a large right-sided pneumothorax N.B. : The above information has been verbally conveyed by Nikko Terry MD to Jose Orozco MD, on 11/10/2020 16:34:44 (ET). Electronically Signed: Nikko Terry MD at 16:35 EDT Tel , Service support , Chest X-Ray 11/10/20 17:00 IMPRESSION: Interval placement of a right-sided small bore thoracostomy tube with resolution of the pneumothorax. Electronically Signed: Nikko Terry MD at 17:32 EDT Tel , Service support , Chest X-Ray 11/10/20 18:35 Charges/Coding Visit Charges Inpatient E&M: 38812 Init Hosp L3
--- NOTE | 2020-11-11 09:03 | CON.PCM.SX_ITS ---
Assessment & Plan Assessment/Plan (1) Pneumothorax: (2) COPD (chronic obstructive pulmonary disease): QUALIFIERS: COPD type: unspecified COPD Qualified Code(s): J44.9 - Chronic obstructive pulmonary disease, unspecified (3) Chronic respiratory failure with hypoxia, on home oxygen therapy: PLAN: Patient still has an air leak on exam. We will continue percutaneous chest tube to -20 suction for today. If patient continues to have air leak may need to be transferred to a tertiary care facility with thoracic. Dr. Camacho will be covering this weekend. Savannah Mena M.D. Pager: [phone] [facility] [address] [place] [address], Outpatient Pavilion, [address] [place] [address] Office: [phone] HPI Consult Data Date of Consult: 11/15/20 HPI Narrative HPI Narrative: ED MARAVILLA, is a 85 M who presented to the ER due to shortness of breath. Was found to have a large right pneumothorax. In the ER a percutaneous chest tube was placed which resulted pneumothorax. Patient previously has had a spontaneous pneumothorax in the past. Does have COPD and is on home O2 at 3 L. Patient currently denies any shortness of breath is on 4 L nasal cannula undergoing an echo ultrasound. Patient does have air leak in his canister. Chest x-ray this morning did show that the lung was reexpanded with the percutaneous tube. Patient is poor's historian difficult to get much more history-most was obtained per the chart. [facility] Medical History Anemia Anxiety Chest pain Chronic respiratory failure with hypoxia, on home oxygen therapy COPD (chronic obstructive pulmonary disease) COPD exacerbation Depression Essential tremor Essential tremor Former smoker Hearing loss, left Hearing loss, right HTN (hypertension) Iron deficiency anemia Iron deficiency anemia Normal colonoscopy Normal endoscopy Obesity (BMI 30.0-34.9) On home oxygen therapy Osteoporosis Pre-diabetes Home Medications albuterol sulfate 1 - 2 puff INHALATION Q6H PRN 10/24/17 [History Last Taken 11/10/20] cholecalciferol (vitamin D3) 5,000 unit PO DAILY 10/24/17 [History Last Taken 11/09/20] coenzyme Q10 10 mg PO DAILY 10/24/17 [History Last Taken 11/09/20] omega-3 fatty acids-fish oil 1 ea PO BID 10/24/17 [History Last Taken 11/09/20] albuterol sulfate 2.5 mg INHALATION 4X/DAY 04/07/19 [History Last Taken ] ferrous gluconate 240 mg (27 mg iron) tablet 240 mg PO DAILY 05/30/20 [History Last Taken 11/08/20] furosemide 20 mg tablet 20 mg PO DAILY 05/30/20 [History Last Taken 11/10/20] bilawwqztah-lfrcbdmoo-krsawvnp 1 ea IH DAILY 06/02/20 [History Last Taken 11/09/20] nebivolol 5 mg PO DAILY 06/02/20 [History Last Taken 11/09/20] roflumilast 500 mcg PO DAILY 06/02/20 [History Last Taken 11/10/20] losartan 50 mg PO DAILY 11/10/20 [History Last Taken 11/10/20] melatonin 6 mg PO DAILY 11/10/20 [History Last Taken 11/09/20] multivitamin 1 tab PO BID 11/10/20 [History Last Taken 11/09/20] Allergy/AdvReac Type Severity Reaction Status Date / Time mussels AdvReac Vomiting Verified 06/06/20 06:14 Family History Mother CVA (cerebral vascular accident) Surgical History History of bilateral inguinal herniorrhaphies History of cholecystectomy History of tonsillectomy Social History Smoking Status: Former smoker alcohol intake: current alcohol intake frequency: 0-2 drinks per day substance use type: does not use ROS ROS Narrative Limited as patient is poor historian Physical Exam Const alert and no apparent distress Chest Breast/Axilla Palpation: other Other Details: Right percutaneous chest tube in place Cardio Rate: tachycardic GI soft to palpation, non-tender and non-distended Palpation: Negative for guarding Psych Mood & Affect: flat affect Lab / Micro Data Result Diagrams: 11/11/20 06:10 11/11/20 06:10 Labs: Laboratory Results - last 24 hr 05/11/10/20 11/10/20 16:05 16:05 16:05 WBC 12.3 H RBC 3.82 L Hgb 11.8 L Hct 38.6 L MCV 101.0 H MCH 30.9 MCHC 30.6 L RDW Std Deviation 46.6 H RDW Coeff of Андрей 12.6 Plt Count 305 MPV 9.5 Immature Gran % (Auto) 0.300 Neut % (Auto) 50.2 Lymph % (Auto) 36.6 [place] % (Auto) 11.1 H Eos % (Auto) 1.5 Baso % (Auto) 0.3 Absolute Neuts (auto) 6.2 Absolute Lymphs (auto) 4.50 Nucleated RBC % 0 Differential Comment PT INR Sodium 140 Potassium 3.8 Chloride 101 Carbon Dioxide 39.0 H Anion Gap 0 L BUN 21 H Creatinine 0.87 Estim Creat Clear Calc 61.15 Est GFR (MDRD) Af Amer 108 Est GFR (MDRD) Non-Af 89 BUN/Creatinine Ratio 24.2 H Glucose 153 H Calcium 10.8 H Total Bilirubin AST ALT Alkaline Phosphatase Troponin I < 0.015 B-Natriuretic Peptide 59.4 Total Protein Albumin Globulin Albumin/Globulin Ratio 11/11/20 11/11/20 11/11/20 06:10 06:10 06:10 WBC 10.3 RBC 3.66 L Hgb 11.2 L Hct 36.6 L MCV 100.0 H MCH 30.6 MCHC 30.6 L RDW Std Deviation 45.0 H RDW Coeff of Андрей 12.3 Plt Count 240 MPV 9.8 Immature Gran % (Auto) 0.400 Neut % (Auto) 91.6 H Lymph % (Auto) 4.6 L [place] % (Auto) 3.3 Eos % (Auto) 0.0 Baso % (Auto) 0.1 Absolute Neuts (auto) 9.4 H Absolute Lymphs (auto) 0.47 L Nucleated RBC % 0 Differential Comment SCANNED PT 13.2 INR 1.1 Sodium 141 Potassium 4.7 Chloride 99 Carbon Dioxide 37.0 H Anion Gap 5 BUN 28 H Creatinine 0.99 Estim Creat Clear Calc 50.12 Est GFR (MDRD) Af Amer 93 Est GFR (MDRD) Non-Af 77 BUN/Creatinine Ratio 28.4 H Glucose 191 H Calcium 10.1 Total Bilirubin 0.40 AST 21 ALT 21 Alkaline Phosphatase 63 Troponin I B-Natriuretic Peptide Total Protein 7.0 Albumin 3.3 Globulin 3.7 Albumin/Globulin Ratio 0.9 Micro: Microbiology 11/10/20 16:12 SARS-CoV-2 Antigen (Rapid) - Final Interface Orders Radiology Impression Chest X-Ray 11/10/20 16:20 IMPRESSION: Emphysema with a large right-sided pneumothorax N.B. : The above information has been verbally conveyed by Nikko Terry MD to Jose Orozco MD, on 11/10/2020 16:34:44 (ET). Electronically Signed: Nikko Terry MD at 16:35 EDT Tel , Service support , ADDENDUM: 11/10/20 1642 IMPRESSION: Emphysema with a large right-sided pneumothorax N.B. : The above information has been verbally conveyed by Nikko Terry MD to Jose Orozco MD, on 11/10/2020 16:34:44 (ET). Electronically Signed: Nikko Terry MD at 16:35 EDT Tel , Service support , Chest X-Ray 11/10/20 17:00 IMPRESSION: Interval placement of a right-sided small bore thoracostomy tube with resolution of the pneumothorax. Electronically Signed: Nikko Terry MD at 17:32 EDT Tel , Service support , Chest X-Ray 11/10/20 18:35 Chest X-Ray 11/11/20 05:55 IMPRESSION: Right-sided small bore thoracostomy tube with a tiny apical pneumothorax. Electronically Signed: Nikko Terry MD at 8:17 EDT Tel , Service support , Charges/Coding Visit Charges Inpatient E&M: 71370 Init Hosp L2
--- NOTE | 2020-11-11 09:25 | CASEMGMT ---
Addendum entered by Terri Barreto 11/11/20 10:34: TC to [employer], spoke with Lucia to verify that pt rx for O2 is 2L NC continuous. Original Note: REBECA MONTGOMERY Assessment: Face to Face with pt for initial transition planning/care coordination assessment. REBECA MONTGOMERY introduced self and role at [facility], pt voices understanding and consents to assessment. Pt is A/O x4 and answers all questions appropriately at this time. Pt sitting up in bed with O2 on in no distress, does get short of breath while talking. Care providers, pharmacy, and demographics verified/updated. Admitting Dx: COPD/Pneumothorax PCP: Sobeida Specialists: dimitri Greene Preferred Pharmacy: [facility] Insurance: Vayable [facility] Prescription Benefit: yes LW/HPOA: Pt states he does not have a LW/DPOA and would like to complete this during this hospital stay. Pt wants to wait until he is transferred to another floor so his can visit when this is being completed. LNOK: Jazmin Kerr, Living Arrangements: Pt lives in a single story house with with no steps to enter. Pt states he is I in ADL's. Denies concerns at home. Transportation: Pt states he has not driven in 2-3 mos. transports pt to appointments. Pt denies concerns with transportation. DME/HHC/SNF: Pt states he has O2 at home and uses 2-4L NC, uses [facility]. Pt denies any history of HH or SNF stay. Pt states he would be agreeable to going home with [facility]. He is certain that he would like to go home. Will follow for therapy needs, plan on SN for sure. Patient was provided a list of HHC providers including quality and resource use data and consistent with the patient?s preferred geographic region, medical needs, and insurance network. He would like to decide on the agency when is able to visit. Pt states no concerns with going home at time of dc. Pt states no further concerns/needs. CM to follow therapy, O2 needs. Advised pt to ask CM if any further question/concerns/needs arise, voices understanding. Pt Goal: Home with HHC Plan: Home with C
[2020-11-11] MEDS: Furosemide 40 MG/4 ML Vial IV (09:50)
[2020-11-11] MEDS: Cholecalciferol (VIT D3) 25 MCG TABLET (1,000 UNITS) 125 MCG PO (09:50)
[2020-11-11] MEDS: guaiFENesin 1,200 MG Tablet 1200 MG PO ×2 (09:50→22:20)
[2020-11-11] MEDS: Losartan Potassium 50 MG Tablet PO (09:50)
[2020-11-11] MEDS: Ferrous Gluconate 324 MG Tablet PO (09:50)
[2020-11-11] MEDS: Pantoprazole Sodium 40 MG Tablet PO (09:50)
[2020-11-11] MEDS: Enoxaparin 40 MG/0.4 ML Syringe SC (09:50)
[2020-11-11] MEDS: Nebivolol HCl 10 MG Tablet PO (09:50)
[2020-11-11] MEDS: Escitalopram Oxalate 10 MG Tablet 5 MG PO (09:50)
[2020-11-11] MEDS: CHLORHEXIDINE GLUC 2% CLOTH 1 EACH TOWELETTE TOPICAL (09:51)
--- NOTE | 2020-11-11 10:06 | PCM.PN.HOSP ---
Subjective Subjective Feels letter, breathing little bit easier. Denies any significant chest pain other than what is around the pigtail catheter. No new issues overnight Objective Data Objective Data Vital Signs: Vital Signs Temp Pulse Resp BP Pulse Ox 98.2 F 102 H 24 H 139/76 H 99 11/11/20 00:00 11/11/20 06:58 11/11/20 08:00 11/11/20 00:00 11/11/20 08:00 Oxygen Flow Rate (L/min) 4 Oxygen Delivery Method Nasal Cannula Weight: 193 lb 9.054 oz Body Mass Index (BMI) 30.9 Intake & Output: Intake and Output for Last 24 Hours 11/10/20 11/11/20 11/12/20 03:59 03:59 03:59 Intake Total 240 / 240 150 / 150 Output Total 200 / 200 375 / 375 Balance 40 / 40 -225 / -225 Lab / Micro Data Result Diagrams: 11/11/20 06:10 11/11/20 06:10 Labs: Laboratory Results - last 24 hr 11/10/20 11/10/20 11/10/20 16:05 16:05 16:05 WBC 12.3 H RBC 3.82 L Hgb 11.8 L Hct 38.6 L MCV 101.0 H MCH 30.9 MCHC 30.6 L RDW Std Deviation 46.6 H RDW Coeff of Андрей 12.6 Plt Count 305 MPV 9.5 Immature Gran % (Auto) 0.300 Neut % (Auto) 50.2 Lymph % (Auto) 36.6 [place] % (Auto) 11.1 H Eos % (Auto) 1.5 Baso % (Auto) 0.3 Absolute Neuts (auto) 6.2 Absolute Lymphs (auto) 4.50 Nucleated RBC % 0 Differential Comment PT INR Sodium 140 Potassium 3.8 Chloride 101 Carbon Dioxide 39.0 H Anion Gap 0 L BUN 21 H Creatinine 0.87 Estim Creat Clear Calc 61.15 Est GFR (MDRD) Af Amer 108 Est GFR (MDRD) Non-Af 89 BUN/Creatinine Ratio 24.2 H Glucose 153 H Calcium 10.8 H Total Bilirubin AST ALT Alkaline Phosphatase Troponin I < 0.015 B-Natriuretic Peptide 59.4 Total Protein Albumin Globulin Albumin/Globulin Ratio 11/11/20 11/11/20 11/11/20 06:10 06:10 06:10 WBC 10.3 RBC 3.66 L Hgb 11.2 L Hct 36.6 L MCV 100.0 H MCH 30.6 MCHC 30.6 L RDW Std Deviation 45.0 H RDW Coeff of Андрей 12.3 Plt Count 240 MPV 9.8 Immature Gran % (Auto) 0.400 Neut % (Auto) 91.6 H Lymph % (Auto) 4.6 L [place] % (Auto) 3.3 Eos % (Auto) 0.0 Baso % (Auto) 0.1 Absolute Neuts (auto) 9.4 H Absolute Lymphs (auto) 0.47 L Nucleated RBC % 0 Differential Comment SCANNED PT 13.2 INR 1.1 Sodium 141 Potassium 4.7 Chloride 99 Carbon Dioxide 37.0 H Anion Gap 5 BUN 28 H Creatinine 0.99 Estim Creat Clear Calc 50.12 Est GFR (MDRD) Af Amer 93 Est GFR (MDRD) Non-Af 77 BUN/Creatinine Ratio 28.4 H Glucose 191 H Calcium 10.1 Total Bilirubin 0.40 AST 21 ALT 21 Alkaline Phosphatase 63 Troponin I B-Natriuretic Peptide Total Protein 7.0 Albumin 3.3 Globulin 3.7 Albumin/Globulin Ratio 0.9 Micro: Microbiology 11/10/20 16:12 Interface Orders SARS-CoV-2 Antigen (Rapid) - Final Radiography Diagnostic Testing: Radiology Impression Chest X-Ray 11/10/20 16:20 IMPRESSION: Emphysema with a large right-sided pneumothorax N.B. : The above information has been verbally conveyed by Nikko Terry MD to Jose Orozco MD, on 11/10/2020 16:34:44 (ET). Electronically Signed: Nikko Terry MD at 16:35 EDT Tel , Service support , ADDENDUM: 11/10/20 1642 IMPRESSION: Emphysema with a large right-sided pneumothorax N.B. : The above information has been verbally conveyed by Nikko Terry MD to Jose Orozco MD, on 11/10/2020 16:34:44 (ET). Electronically Signed: Nikko Terry MD at 16:35 EDT Tel , Service support , Chest X-Ray 11/10/20 17:00 IMPRESSION: Interval placement of a right-sided small bore thoracostomy tube with resolution of the pneumothorax. Electronically Signed: Nikko Terry MD at 17:32 EDT Tel , Service support , Chest X-Ray 11/10/20 18:35 Chest X-Ray 11/11/20 05:55 IMPRESSION: Right-sided small bore thoracostomy tube with a tiny apical pneumothorax. Electronically Signed: Nikko Terry MD at 8:17 EDT Tel , Service support , Physical Exam Const alert, oriented x3 and no apparent distress HEENT moist oral mucous membranes Head and Scalp: normocephalic Eyes PERRL, EOMs intact bilaterally and conjunctivae normal Neck supple Resp normal respiratory effort Resp Narrative: Chest tube in right thorax Auscultation: diminished lung sounds; Negative for crackles, rales, rhonchi or wheezes Cardio regular rate, regular rhythm, S1 normal heart sound, S2 normal heart sound and no murmurs GI soft to palpation, non-tender and non-distended; Negative for hepatosplenomegaly Extremity no clubbing, cyanosis or edema Skin no rashes or lesions noted Neuro no focal motor deficits and no sensory deficits noted Psych affect normal Appearance: appropriate Assessment & Plan Assessment/Plan (1) Pneumothorax: QUALIFIERS: Pneumothorax type: spontaneous, primary Qualified Code(s): J93.11 - Primary spontaneous pneumothorax (2) Acute and chronic respiratory failure with hypoxia: PLAN: 1. Acute on chronic hypoxic respiratory failure secondary spontaneous pneumothorax on the right/history of COPD not in exacerbation -Presented with spontaneous pneumothorax on the right -Chest tube is in being managed by surgery -Continue to low intermittent wall suction, will plan for waterseal tomorrow depending on airleak -Appreciate pulmonology assistance -We will discontinue steroids as he does not have COPD exacerbation at this time, continue with inhalers and wean oxygen as able -He does not have a CHF exacerbation BNP is normal, echo pending. 2. HTN -We will continue to monitor blood pressure -Continue with losartan, daily Lasix, nebivolol 3. Iron deficiency anemia -Stable -Continue with iron replacement DVT: Lovenox Visit Charges Inpatient E&M: 95368 Subs Hosp L2
[2020-11-11] MEDS: Menthol/Lanolin/Calamine/Znox 113 GM Tube 1 APPLIC TOPICAL ×2 (14:58→22:19)
[2020-11-11] MEDS: Budesonide Respules 0.5 MG/2 ML AMPUL.NEB. INHALATION (19:03)
[2020-11-11] MEDS: Mag Hydrox/Al Hydrox/Simeth 30 ML UDC PO (22:20)
[2020-11-12] VITALS (10 sets, daily range): BP systolic 114–144; BP diastolic 50–64; PULSE 74–98; RESP 18–32; TEMP 36.6–37.1; O2SAT 96–100
[2020-11-12] MEDS: Menthol/Lanolin/Calamine/Znox 113 GM Tube 1 APPLIC TOPICAL (05:36)
--- NOTE | 2020-11-12 06:37 | RAD_ITS ---
STUDY: X-RAY CHEST REASON FOR EXAM: Male, 85 years old. Pneumothorax TECHNIQUE: Single AP portable view of the chest. COMPARISON: November 11, 2020 chest x-ray FINDINGS: There is a small caliber chest tube just at the periphery of the lung. There is a persistent slightly greater pneumothorax proximally 5-10%. Normal size heart. Normal mediastinum and juan manuel. Normal visualized pulmonary arteries. There is atherosclerotic calcification of the aortic arch with tortuosity. There are diffuse degenerative changes of the visualized thoracic spine. Normal visualized ribs, clavicles, and shoulders. There is no demonstrated abnormality of the visualized soft tissue structures of the upper abdomen. RAD/Chest 1 View (Portable) IMPRESSION: Small caliber peripheral right-sided chest tube. Slightly increased right-sided pneumothorax. Electronically Signed: Yudi Esparza MD at 16:02 EDT Tel , Service support ,
[2020-11-12] MEDS: Budesonide Respules 0.5 MG/2 ML AMPUL.NEB. INHALATION (07:02)
[2020-11-12] MEDS: Ipratropium/Albuterol Sulfate 3 ML AMPUL.NEB INHALATION ×2 (07:02→13:41)
--- NOTE | 2020-11-12 07:27 | PN.SURG_ITS ---
Subjective Subjective Patient has no new complaints overnight Objective Data Objective Data Vital Signs: Vital Signs Temp Pulse Resp BP Pulse Ox 97.9 F 76 18 114/50 L 100 11/12/20 03:30 11/12/20 06:55 11/12/20 03:30 11/12/20 03:30 11/12/20 03:30 Oxygen Flow Rate (L/min) 3.5 Oxygen Delivery Method Nasal Cannula Weight: 193 lb 1.999 oz Body Mass Index (BMI) 30.9 Intake & Output: Intake and Output for Last 24 Hours 11/10/20 11/11/20 11/12/20 23:59 23:59 23:59 Intake Total 240 / 240 270 / 270 Output Total 200 / 200 575 / 575 400 / 400 Balance 40 / 40 -305 / -305 -400 / -400 Lab / Micro Data Result Diagrams: 11/11/20 06:10 11/11/20 06:10 Micro: Microbiology 11/10/20 16:12 Interface Orders SARS-CoV-2 Antigen (Rapid) - Final Radiography Diagnostic Testing: Radiology Impression Echocardiogram 11/10/20 21:08 Interpretation Summary The estimated ejection fraction is Calculated EF 72% %. Normal LV systolic function No change from prior ECHO 03/11/2020 Ordering Physician: Jaime Mora Referring Physician: Jaime Vidales Performed By: Ranjana Tamez, RDCS, RVT Chest X-Ray 11/11/20 05:55 IMPRESSION: Right-sided small bore thoracostomy tube with a tiny apical pneumothorax. Electronically Signed: Nikko Terry MD at 8:17 EDT Tel , Service support , Physical Exam Narrative Patient has ongoing air leak of the right chest tube. It is very large. Assessment & Plan Assessment/Plan (1) Pneumothorax: QUALIFIERS: Pneumothorax type: spontaneous, primary Qualified Code(s): J93.11 - Primary spontaneous pneumothorax PLAN: Patient has ongoing pneumothorax of the right side. The patient has ongoing air leak and Dr. Mena recommended that if the air leak continued that the patient be transferred to a tertiary center with thoracic surgery. Juan Camacho MD Pager: [facility] [address] [place] [address], [address] [place] [address] Office:
[2020-11-12] MEDS: Furosemide 40 MG/4 ML Vial IV (08:47)
[2020-11-12] MEDS: 0.9% Saline Lock 10 ML Syringe IV ×2 (08:47→15:14)
[2020-11-12] MEDS: Ferrous Gluconate 324 MG Tablet PO (08:48)
[2020-11-12] MEDS: Losartan Potassium 50 MG Tablet PO (08:48)
[2020-11-12] MEDS: Escitalopram Oxalate 10 MG Tablet 5 MG PO (08:48)
[2020-11-12] MEDS: Nebivolol HCl 10 MG Tablet PO (08:48)
[2020-11-12] MEDS: Enoxaparin 40 MG/0.4 ML Syringe SC (08:49)
[2020-11-12] MEDS: guaiFENesin 1,200 MG Tablet 1200 MG PO (08:49)
[2020-11-12] MEDS: Pantoprazole Sodium 40 MG Tablet PO (08:49)
[2020-11-12] MEDS: Cholecalciferol (VIT D3) 25 MCG TABLET (1,000 UNITS) 125 MCG PO (08:49)
--- NOTE | 2020-11-12 10:25 | CASEMGMT ---
According to [employer]'s website, the following tertiary facilities are in network: [facility], [place], [facility], [facility], [facility], [facility] and .
--- NOTE | 2020-11-12 13:09 | DS.PCM_ITS ---
Providers Date of Admission: 11/10/20 Primary Care Physician: Dr. Jaime Vidales MD Consultations 11/10/20 19:10 Consult: General Surgery Routine Consulting Provider: Savannah Mena Reason for Consult: Spontaneous pneumothorax EMERGENT Consult: No Notified: Yes Date Notified:: 11/10/20 Time Notified: 19:10 Method of Notification: Verbal Method of Consult:: In-Person Comments:: Notified by ED 11/10/20 19:12 Consult: Onc/Wound/spiritual care coordinator Routine Comment: 11/10/20 21:08 Consult: Bakery Products Checker / Pulmonary Medicine Routine Consulting Provider: Pulmonary Medicine [facility] Reason for Consult: S/P pneumothorax EMERGENT Consult: No Notified: Yes Date Notified:: 11/10/20 Time Notified: 18:46 Method of Notification: Text Reason For Visit: COPD/PNEUMOTHORAX Diagnosis Discharge Diagnosis (1) Pneumothorax: Status: Acute Code(s): J93.9 - Pneumothorax, unspecified Qualifiers: Pneumothorax type: spontaneous, primary Qualified Code(s): J93.11 - Primary spontaneous pneumothorax Medications at Discharge Home Medications albuterol sulfate 1 - 2 puff INHALATION Q6H PRN 10/24/17 cholecalciferol (vitamin D3) 5,000 unit PO DAILY 10/24/17 coenzyme Q10 10 mg PO DAILY 10/24/17 omega-3 fatty acids-fish oil 1 ea PO BID 10/24/17 albuterol sulfate 2.5 mg INHALATION 4X/DAY 04/07/19 ferrous gluconate 240 mg (27 mg iron) tablet 240 mg PO DAILY 05/30/20 furosemide 20 mg tablet 20 mg PO DAILY 05/30/20 [id number] 1 ea IH DAILY 06/02/20 nebivolol 5 mg PO DAILY 06/02/20 roflumilast 500 mcg PO DAILY 06/02/20 losartan 50 mg PO DAILY 11/10/20 melatonin 6 mg PO DAILY 11/10/20 multivitamin 1 tab PO BID 11/10/20 Hospital Course Operations None Procedures - (chest tube placement) Summary of Care Provided Minutes Spent on Discharge: 40 Hospital Course: Patient is an 85-year-old male who was admitted through the ED on 11/10/2020 with a complaint of chest pain and shortness of breath. Started while he was driving to his physician's office and he became acutely short of breath with associated question chest pain. He immediately came to the ED and was hypoxic on admission and started on nonrebreather mask. Oxygen saturation improved to the mid 90s and a chest x-ray was obtained which showed a right- sided pneumothorax. He had a pigtail chest tube placed in the ED and was admitted and managed for acute right-sided pneumothorax. Post thoracostomy chest x-ray showed hyperinflation of the lungs consistent with COPD and resolution of the right-sided pneumothorax. Was initially admitted to the ICU and pulmonology and general surgery consulted. Repeat chest x-ray done on 11/11/2020 showed a tiny apical pneumothorax. General surgery evaluated patient on 11/12/2020 and determined the patient had an ongoing air leak of the right chest tube which was quite large. Per recommendation of general surgery, patient was transferred to a tertiary center for thoracic surgery evaluation. Patient was accepted at [facility] under the care of the internal medicine service, for thoracic surgery to see on consult. I did discuss case with the thoracic surgeon before the patient was transferred. Patient was seen and examined prior to discharge. He said he felt better and he felt his breathing was better. He had no complaints. Review of symptoms otherwise negative. Labs and vitals reviewed. Her medication reviewed and reconciled. O/E: Const alert, oriented x3 and no apparent distress HEENT moist oral mucous membranes Head and Scalp: normocephalic Eyes PERRL, EOMs intact bilaterally and conjunctivae normal Neck supple Resp normal respiratory effort Resp Narrative: Chest tube in right thorax diminished lung sounds; bilateral wheezing and few crackles. Audible air leak around chest tube with breathing Cardio regular rate, regular rhythm, S1 normal heart sound, S2 normal heart sound and no murmurs GI soft to palpation, non-tender and non-distended; Negative for hepatosplenomegaly Extremity no clubbing, cyanosis or edema Skin no rashes or lesions noted Neuro no focal motor deficits and no sensory deficits noted Psych affect normal Appearance: appropriate Plan is for transfer to [facility] / Lab / Microbiology Data Result Diagrams: 11/11/20 06:10 11/11/20 06:10 Microbiology: Microbiology 11/10/20 16:12 Interface Orders SARS-CoV-2 Antigen (Rapid) - Final Radiography Diagnostic Testing: Radiology Impression Echocardiogram 11/10/20 21:08 Interpretation Summary The estimated ejection fraction is Calculated EF 72% %. Normal LV systolic function No change from prior ECHO 03/11/2020 Ordering Physician: Jaime Mora Referring Physician: Jaime Vidales Performed By: Ranjana Tamez RDCS, RVT Meaningful Use Info Meaningful Use Diagnoses (Choose all that apply): None applicable Discharge Plan Admission Admit Date/Time: 11/10/20 17:55 Primary Reason for Your Visit: right sided pneumonthrax Attending Provider: Kristan Swanson Primary Care Provider: Jaime Vidales Consulting Providers: Savannah Mena ; Jon Platt ; Tino Neal ; Betty Mario [employer] [employer] Instructions Patient Instructions: ED Chest Pain, Noncardiac Additional Instructions / Restrictions: Patient Problems: Altered Health Status related to Hospitalization Patient Goals: *Optimal Level of Health *Keep Appointments *Medication Compliance *Remain Safe Discharge Orders/Prescriptions Prescriptions: No Action furosemide [Lasix] 20 mg tablet 20 mg PO DAILY RF: 0 ferrous gluconate [Fergon] 240 mg (27 mg iron) tablet 240 mg PO DAILY RF: 0 coenzyme Q10 10 MG capsule 10 mg PO DAILY RF: 0 albuterol sulfate 90 MCG inhaler 1 - 2 puff INHALATION Q6H PRN (Reason: Sob &/Or Wheezing) RF: 0 cholecalciferol (vitamin D3) 5,000 UNIT capsule 5,000 unit PO DAILY RF: 0 omega-3 fatty acids-fish oil 1 EACH capsule 1 ea PO BID RF: 0 albuterol sulfate 2.5 MG/3 ML solution for nebulization 2.5 mg inhalation 4X/DAY RF: 0 nebivolol 10 MG tablet 5 mg PO DAILY RF: 0 roflumilast 500 MCG tablet 500 mcg PO DAILY RF: 0 trrisvlfesi-jcyegopos-nqxbtjxg 1 EACH blister with device 1 ea IH DAILY RF: 0 multivitamin Tablet 1 tab PO BID RF: 0 losartan 50 MG tablet 50 mg PO DAILY RF: 0 melatonin 3 mg Tablet 6 mg PO DAILY RF: 0 Referrals / Follow Up: Jaime Vidales MD [Primary Care Provider] - Disposition Disposition (needs filled in before D/C Order can be placed): Acute Care Hospital Visit Charges Inpatient E&M: 21091 Disch Hosp
--- NOTE | 2020-11-12 13:52 | NURSING ---
This RN called report to @ [facility], spoke with REBECA Conway. Transport to be here between [id number].
[2020-11-12] MEDS: Albuterol 2.5 MG/3 ML VIAL.NEB. INHALATION (15:04)
[2020-11-12] MEDS: hydrALAZINE 20 MG/ML Vial 10 MG IV (15:14)
--- NOTE | 2020-11-12 15:16 | NURSING ---
Transport team called this RN into room d/t patient c/o difficulty breathing. Pt tachypnic, hypoxic 92 with 4L, Hypertensive SBP 190's. RT in room for PRN treatment before leaving. Called Dr Swanson and orders for 10 mg IV hydralazine x1. BP 172/80 at time of hydralazine administration. MD also stated that increased SOB to be expected from air leak, Thoracic surgeon even confirmed that when talking with MD. Daughter at bedside and aware. At time of departure, SpO2 94% on 4L, HR 98, BP 184/83.
--- NOTE | 2020-11-12 18:31 | CASEMGMT ---
RAMAN note REferral Source : [facility] [employer] Reason for Referral: Advanced Directives SW received referral from [facility] [employer] regarding Advanced Directives. 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 Thus, SW did not see him or provide Advanced Directives. He can follow up at [facility]. Plan: Follow up at [facility] BERUMEN
== END 2020-11-12 14:45 | disposition short-term general hospital (02) | DRG 199 ==
LOC: ED 17:46 → ICU 18:31 → PCU 11-12 07:12 → ICU 11-15 09:54 → PCU 11-15 09:54
PROVIDERS: Physician Assistant; Admitting Provider Internal Medicine; Emergency Provider Emergency Medicine; PCP Family Medicine; Visit Provider Student in an Organized Health Care Education/Training Program
DX: J93.11 Primary spontaneous pneumothorax (principal); I50.21 Acute systolic (congestive) heart failure; J96.21 Acute and chronic respiratory failure with hypoxia; J43.9 Emphysema, unspecified; J93.82 Other air leak; F32.9 Major depressive disorder, single episode, unspecified; I11.0 Hypertensive heart disease with heart failure; G25.0 Essential tremor; D50.9 Iron deficiency anemia, unspecified; I16.0 Hypertensive urgency; M81.0 Age-related osteoporosis without current pathological fracture; R73.03 Prediabetes; H91.93 Unspecified hearing loss, bilateral; E66.9 Obesity, unspecified; Z68.30 Body mass index [BMI] 30.0-30.9, adult; Z99.81 Dependence on supplemental oxygen; Z79.899 Other long term (current) drug therapy; Z87.891 Personal history of nicotine dependence
CPT/HCPCS: 32551; 71045; 80048; 80053; 83880; 84484; 85025; 85610; 87426; 93005; 93306; 94002; 94640; 97110; 97162; 97166; 97530; 97802; 99285; A4216; J1940

== ENCOUNTER → 2021-02-21 12:45 | Outpatient (CLI) | payer MEDICARE, SELFPAY ==
[2021-02-21 13:42] LABS: Base Excess 17 mmol/L (-2 to +2); Bicarbonate 42.2 mmol/L (22-26); Blood Gas Specimen Type ART; O2 Delivery Device Cannula; PO2 116 mmHG (75-100); SITE R Brach; SO2 98 % (95-99); Total Carbon Dioxide 45 mmol/L; pCO2 74.6 mmHg (35-45); pH 7.36 (7.35-7.45)
== END ==
PROVIDERS: PCP Family Medicine; Referring Provider Internal Medicine Pulmonary Disease; Visit Provider Internal Medicine Pulmonary Disease
DX: J44.9 Chronic obstructive pulmonary disease, unspecified (principal); R09.02 Hypoxemia
CPT/HCPCS: 36600; 82803

== ENCOUNTER → 2021-02-24 12:11 | Outpatient (CLI) | payer MEDICARE, SELFPAY ==
[2021-02-24 15:42] LABS: Absolute Lymphocyte Count 1.61 X10^3/uL (0.83-4.51); Absolute Neutrophil Count 4.4 X10^3/uL (2.0-7.7); Basophil# 0.02 X10^3/uL; Basophil% 0.3 % (0-1); Eosinophil# 0.19 X10^3/uL; Eosinophils% 2.7 % (0-5); Hematocrit 31.8 % (40-54); Hemoglobin 9.1 g/dL (13.0-16.5); Lymphocyte # 1.61 X10^3/ul (0.83-4.51); Lymphocyte % 22.5 % (19-41); Mean Corp Hgb Conc 28.6 g/dL (32-36); Mean Corpuscular Hgb 29.6 pg (27.0-32.0); Mean Corpuscular Volume 103.6 fL (80-94); Mean Platelet Vol. 10.2 fl (6.2-12.0); Monocyte# 0.87 X10^3/uL; Monocyte% 12.2 % (0-10); NRBC Flagged by Analyzer 0 % (0-5); Neutrophil # 4.44 X10^3/uL (2.7-7.7); Platelet Count 291 K/mm3 (150-450); RBC Distribution Width CV 13.3 % (11.6-14.6); RBC Distribution Width SD 50.4 fl (35.1-43.9); Red Blood Count 3.07 M/mm3 (4.6-6.2); White Blood Count 7.2 K/mm3 (4.4-11.0)
[2021-02-24 17:08] LABS: ALB/GLOB Ratio 0.8 RATIO (0.9-2.4); AST(SGOT) 11 U/L (15-37); Alanine Aminotransfer ALT/SGPT 16 U/L (16-61); Albumin, Serum 2.7 g/dL (3.2-5.0); Alkaline Phosphatase 49 U/L (45-117); Anion Gap 0 (5-15); BUN 14 mg/dL (7-18); BUN/Creat Ratio 19.2 RATIO (10-20); Calcium,Total 9.5 mg/dL (8.5-10.1); Chloride 100 mmol/L (98-107); Creatinine, Serum 0.73 mg/dL (0.70-1.30); EST Glomerular Filtration Rate 109 mL/min (>60); Est Glom Filt Rate - Afr Amer 132 mL/min (>60); Ferritin 129 ng/mL (26-388); Globulin 3.5 g/dL (2.2-4.2); Glucose 120 mg/dL (74-106); Iron 34 ug/dL (65-175); Iron Binding Capacity,Total 257 ug/dL (250-450); Potassium 3.8 mmol/L (3.5-5.1); Protein, Total 6.2 g/dL (6.4-8.2); Sodium Level 144 mmol/L (136-145); Thyroid Stim Hormone (TSH) 0.88 uIU/mL (0.358-3.74)
[2021-02-24 17:13] LABS: Vitamin B12 495 pg/mL (211-911); Vitamin D,25 Hydroxy 71.6 ng/mL
== END ==
PROVIDERS: PCP Family Medicine; Referring Provider Family Medicine; Visit Provider Family Medicine
DX: D50.9 Iron deficiency anemia, unspecified (principal); R53.83 Other fatigue
CPT/HCPCS: 36415; 80053; 82306; 82607; 82728; 83540; 83550; 84443; 85025